=== PATIENT | female | born 1955 | race Caucasian/White ===

== ENCOUNTER 2023-07-24 09:01 | Outpatient (OUT) | payer OTHER, SELFPAY ==
[2023-07-24 09:31] LABS: Eosinophils Absolute Auto 0.1 10^3/uL (0.0-0.7); Eosinophils Percent Auto 2.5 % (0.9-7.0); Hematocrit 40.8 % (36.0-48.0); Hemoglobin 13.2 g/dL (12.0-16.0); Immature Granulocytes Abs Auto 0.01 10^3/uL (0.00-0.03); Immature Granulocytes Pct Auto 0.2 % (0.0-0.5); Lymphocytes Absolute Auto 1.6 10^3/uL (1.2-3.8); Lymphocytes Percent Auto 39.3 % (20.5-60.0); Mean Corpuscular HGB Conc 32.4 g/dL (29.9-35.2); Mean Corpuscular Hemoglobin 31.9 pg (26.7-34.0); Mean Corpuscular Volume 98.6 fL (81.0-99.0); Mean Platelet Volume 8.8 fL (9.5-13.5); Monocytes Absolute Auto 0.5 10^3/uL (0.3-0.8); Monocytes Percent Auto 11.4 % (1.7-12.0); Neutrophils Absolute Auto 1.9 10^3/uL (1.4-6.5); Neutrophils Percent Auto 45.6 % (43.0-75.0); Platelet Count 237 10^3/uL (150-450); Red Blood Count 4.14 10^6/uL (4.20-5.40); Red Cell Distribution Width 12.5 % (11.0-15.0); White Blood Count 4.1 10^3/uL (4.0-11.0)
[2023-07-24 09:35] LABS: Bilirubin Urine NEGATIVE (NEGATIVE); Blood Urine NEGATIVE (NEGATIVE); Clarity Urine CLEAR (CLEAR); Color Urine LT. YELLOW (YELLOW); Glucose Urine UA NEGATIVE (NEGATIVE); Ketones Urine NEGATIVE (NEGATIVE); Leukocyte Esterase Urine SMALL (NEGATIVE); Nitrite Urine NEGATIVE (NEGATIVE); Protein Urine NEGATIVE (NEG/TRACE); Specific Gravity Urine <=1.005 (1.005-1.025); Urobilinogen Urine 0.2 EU/dL (0.2-1.0); pH Urine 6.5 (5.0-9.0)
[2023-07-24 09:40] LABS: Erythrocyte Sedimentation Rate 11 mm/hr (<=30)
[2023-07-24 09:55] LABS: Bacteria Urine SMALL #/HPF (NONE SEEN); Mucus Urine SMALL (NONE SEEN); RBC Urine 0-2 #/HPF (0-2); Squamous Epithelial Cell Urine RARE #/LPF (NONE/RARE)
[2023-07-24 09:56] LABS: Cast Seen? NONE SEEN #/LPF (NONE SEEN); Crystals Seen? None Seen #/HPF (None Seen); Fatty Casts Urine RARE; Urine Culture Indicated YES
[2023-07-24 10:03] LABS: Alanine Aminotransferase 33 U/L (14-59); Albumin Level 3.7 g/dL (3.4-5.0); Alkaline Phosphatase 100 U/L (46-116); Anion Gap 12.4; Aspartate Amino Transferase 22 U/L (15-37); Bilirubin Total 0.3 mg/dL (0.2-1.0); Calcium 8.9 mg/dL (8.5-10.1); Carbon Dioxide 29.1 mmol/L (21.0-32.0); Chloride 105 mmol/L (98-107); Estimated GFR (African America >60 (>=60); Estimated GFR (Non-African Ame 59 (>=60); Globulin 3.6 g/dL; Glucose 108 mg/dL (74-106); Potassium 4.5 mmol/L (3.5-5.1); Sodium 142 mmol/L (136-145); Total Protein 7.3 g/dL (6.4-8.2)
[2023-07-24 10:06] LABS: C Reactive Protein <0.2 mg/dL (<=1.0)
[2023-07-25 08:13] LABS: Complement C3, Serum 120 mg/dL (82-167); Complement C4, Serum 25 mg/dL (12-38)
[2023-07-25 14:09] LABS: Complement, Total (CH50) >60 U/mL (>41)
== END 2023-07-24 09:02 | disposition home or self-care (01) ==
PROVIDERS: PCP Family Medicine; Visit Provider Internal Medicine Rheumatology
DX: M15.0 Primary generalized (osteo)arthritis (principal); M36.8 Systemic disorders of connective tissue in other diseases classified elsewhere; Z79.899 Other long term (current) drug therapy
CPT/HCPCS: 36415; 80053; 81001; 85025; 85652; 86140; 86160; 86162; 87086

== ENCOUNTER 2024-05-16 12:23 | Outpatient (OUT) | payer OTHER, SELFPAY | END 2024-05-16 12:24 | disposition home or self-care (01) | LOC: PST 12:23 | PROVIDERS: PCP Family Medicine; Visit Provider Urology | DX: Z01.818 Encounter for other preprocedural examination (principal); N39.490 Overflow incontinence; R33.9 Retention of urine, unspecified ==

== ENCOUNTER 2024-05-19 07:33 | Day surgery (SDC) | payer OTHER, SELFPAY ==
[2024-05-19] MEDS: LIDOCAINE 2% JELLY 10 ML UR (08:10)
[2024-05-19 08:24] VITALS: BP 181/84; PULSE 93; O2SAT 98
[2024-05-19 08:27] VITALS: BP 163/80; PULSE 81; O2SAT 100
--- NOTE | 2024-05-19 08:31 | PM.URSON ---
Urology Surgery Operative Note Operative Note Procedure Date: 05/19/24 Time Out Performed: yes Pre-op Diagnosis: Vaginal lesions, overflow incontinence Post-op Diagnosis: same as pre-op Procedures performed: 1. Cystoscopy. 2. Pelvic exam Anesthesia: local Primary Surgeon: Wiliam Solis Estimated blood loss (mL): 0 Findings: Moth-eaten erosive lesions on the outer surface of her vagina. No stress incontinence. No bladder lesions Specimens: None Indications for Procedures: This lady has had an abdominal sacrocolpopexy with mesh, a Bundy urethroplasty and a rectocele repair by the [facility] back in 2010. She has been doing well until recently she started to have some leaking of urine and some raw areas on her outer vaginal surface which are causing rather significant burning for her. She has applied several types of creams antifungal and anti-inflammatory all of which minimally helped if any and seem to further exacerbate the situation. She has gained benefit with her leaking while doing double void maneuvers. She now presents for cystoscopy and pelvic exam. Detailed description of Procedure: The patient was kept on the [facility] bed and brought into the endoscopy suite. She was in the supine position. Her legs were frog-legged. Timeout was done by all parties in the room. We all agreed upon the patient's identification and the planned procedures for this patient. Genitalia were sterilely prepped and draped in the usual fashion. 2% lidocaine jelly was passed per urethra. At this time pelvic exam was then done. On her external surface of her vagina she has some moth-eaten lesions which are indurated and open. There is no evidence of blistering. There is no purulence or necrosis in the area. They are quite tender during exam. Internally, she has a grade 1 cystocele. She has mild urethral prolapse. She has no stress incontinence. She has no atrophic vaginitis. At this time I then passed a flexible cystoscope per urethra and into the bladder. Careful panendoscopy in the bladder showed no evidence of any lesions, tumors, stones or mesh erosion. The scope was retroverted upon itself and no new findings were noted. The scope was then removed. With strong Valsalva maneuvers she had no stress incontinence. Grade 1 cystocele was noted. She will be discharged to home now. I am strongly recommending that she see Dr. Garrido and get a biopsy of these lesions
== END 2024-05-19 08:40 | disposition home or self-care (01) ==
PROVIDERS: PCP Family Medicine; Visit Provider Urology
PROC: (CPT 52000; principal; 2024-05-19 08:00)
DX: N39.490 Overflow incontinence (principal); N89.8 Other specified noninflammatory disorders of vagina; N81.10 Cystocele, unspecified; Z90.710 Acquired absence of both cervix and uterus; Z98.1 Arthrodesis status; R33.9 Retention of urine, unspecified; R30.0 Dysuria
CPT/HCPCS: 52000

== ENCOUNTER 2024-07-01 12:11 | Outpatient (REF) | payer OTHER, SELFPAY ==
--- OUTSIDE RECORDS SUMMARY | 2024-07-14 15:23 | XMS_ITS | CCD ---
Author Organization [facility] Care Team Providers Care Zipper Setter Name Role Phone Ian Diaz Unavailable Cristopher Arevalo Benjamin Edward Unavailable Alvarez Chang, Cristopher Martinez Unavailable Unavailable Unavailable CRISTOPHER CHANG Primary Care Physician ALEXANDRE, DR ROMERO Attending Unavailable TIMMIS, DR ROMERO Consulting Unavailable BUSTOS, DR SAMANTHA Martinez Primary Care Unavailable TIMMIS, DR ROMERO Admitting Unavailable MICHAEL, DR YOST Referring Unavailable DERRELL, DR RAHUL Espinoza Consulting Unavailable HULL, DR VILLARREAL Consulting Unavailable DELLA, DR VILLARREAL Admitting Unavailable BUSTOS, DR SAMANTHA Martinez Primary Care Unavailable HULL, DR VILLARREAL Attending Unavailable Samantha Bustos Unavailable RALPH AYERS Referring Unavailable Wiliam WALLACE Attending Unavailable Wiliam WALLACE Attending Unavailable DO Cony Garrido Attending Provider RALPH AYERS Attending Unavailable RALPH AYERS Attending Unavailable RALPH AYERS Attending Unavailable RALPH AYERS Attending Unavailable CONY GARRIDO Attending Unavailable Cony Garrido Attending Unavailable Cony Garrido Admitting Unavailable Unavailable Unavailable Unavailable Allergies Allergy Classification Reported Allergen(s) Allergy Type Date of Onset Reaction(s) Facility (1 source) No Known Medication Allergies; Translations: [No Known Medication Allergies] Propensity to adverse reactions (disorder) [facility] Repository Medications Current Medications Medication Drug Class(es) Dates Sig (Normalized) Sig (Original) acetaminophen 325 mg / HYDROcodone bitartrate 5 mg oral tablet (2 sources) Opioid Agonist Start: 08-20-2017 take 1 tablet by mouth every four to six hours Hydrocodone-Aceta minophen ([place]) 5-325 mg tablet Active 1 - 2 TAB PO EVERY 4-6 HOURS 40 August 20, 2017 10:07am ARIPiprazole 2 mg oral tablet (4 sources) Atypical Antipsychotic Start: 01-11-2022 take 2 mg by mouth once daily aripiprazole 2 mg, Oral, Daily, Refills(s) 0, Depression Start Date: 01/11/22 Status: Ordered clobetasol propionate 0.0005 mg/mg topical ointment (1 source) Corticosteroid Start: 05-05-2024 clobetasol propionate 0.05% top oint 1 wu, Topical, BID, 45 gm, Refill(s) 1, Apply a thin film to affected area, [facility], 158, cm, 05/05/24 10:21:00 EDT, Height/Length Dosing, 70, kg, 05/05/24 10:21:00 EDT, Weight Dosing Start Date: 05/05/24 Status: Ordered Cymbalta 60 mg Cap-DR (1 source) Start: 05-05-2024 Cymbalta 60 mg Cap-DR Oral, Refills(s) 0 Start Date: 05/05/24 Status: Ordered diclofenac sodium 0.01 mg/mg topical gel (1 source) Nonsteroidal Anti-inflammatory Drug Start: 09-23-2019 DULoxetine 60 mg oral capsule (9 sources) Serotonin and Norepinephrine Reuptake Inhibitor Start: 02-17-2022 take 60 mg by mouth once daily duloxetine 60 mg, Oral, Daily, Refills(s) 0, Depression Start Date: 02/17/22 Status: Ordered Start: 08-20-2017 take 1 capsule by [facility] once daily Duloxetine Active 1 CAP Oral Daily August 20, 2017 7:28am Cymbalta 30 MG O ral Capsule Delayed Release Particles Quantity: 0 Refills: 0 Ordered: 12-Feb-2014 DO Active Cymbalta 60 MG O ral Capsule Delayed Release Particles Quantity: 0 Refills: 0 Ordered: 12-Feb-2014 DO Active etodolac 500 mg oral tablet (4 sources) Nonsteroidal Anti-inflammatory Drug Start: 01-11-2022 take 500 mg by mouth twice daily etodolac 500 mg, Oral, BID, Refills(s) 0, Inflammation Start Date: 01/11/22 Status: Ordered famotidine 20 mg oral tablet (3 sources) Histamine-2 Receptor Antagonist Start: 01-11-2022 take 20 mg by mouth once daily famotidine 20 mg, Oral, Daily, Prescribed by another provider., Refills(s) 0, Control of stomach acid Start Date: 01/11/22 Status: Ordered hydroxychloroquine sulfate 200 mg oral tablet (7 sources) Antimalarial, Antirheumatic Agent Start: 02-17-2022 take 200 mg by mouth twice daily hydroxychloroquine 200 mg, Oral, BID, Refills(s) 0, Arthritis Start Date: 02/17/22 Status: Ordered Start: 08-20-2017 take 200 mg by mouth once daily Hydroxychloroquine Active 200 MG Oral Daily August 20, 2017 7:31am Plaquenil 200 MG Oral Tablet Quantity: 0 Refills: 0 Ordered: 12-Feb-2014 DO Active lidocaine 0.05 mg/mg medicated patch (1 source) Antiarrhythmic, Amide Local Anesthetic Start: 09-23-2019 naproxen 25 mg/ml oral suspension (3 sources) Nonsteroidal Anti-inflammatory Drug take 10 mL by mouth twice daily Naprosyn 500 MG Oral Tablet Quantity: 0 Refills: 0 Ordered: 12-Feb-2014 DO Active omeprazole 40 mg oral tablet (2 sources) Proton Pump Inhibitor Start: 01-11-2022 take 40 mg by mouth once daily omeprazole 40 mg, Oral, Daily, Refills(s) 0, Control of stomach acid Start Date: 01/11/22 Status: Ordered triamcinolone acetonide 5 mg/ml topical cream (3 sources) Corticosteroid Start: 12-26-2022 Triamcinolone Acetonide 0.5 % 1 application Externally Twice a day for 30 day(s) Dec, Active Start: 11-28-2019 Kenalog -40 mg Nov, 40 mg Completed/Discontinued Medications Medication Drug Class(es) Dates Sig (Normalized) Sig (Original) busPIRone hydrochloride 15 mg oral tablet (1 source) take 1 tablet by mouth three times daily busPIRone HCl 15 MG TAKE 1 TABLET BY MOUTH 3 TIMES A DAY Oral for 30 Not-Taking ciprofloxacin 500 mg oral tablet (1 source) Quinolone Antimicrobial Start: 05-05-2024 Cipro 500 mg Tab 500 mg = 1 tab(s), Oral, As Directed, Patient to take 1 tab the day before procedure and the 2nd tab the day of procedure once completed, # 2 tab(s), Refills(s) 0, Pharmacy: [facility], 158, cm, 05/05/24 10:21:00 EDT, Height/Length Dosing, 70, kg, 05/05/24 10:21:00 EDT, Weight Dosing Start Date: 05/05/24 Status: Ordered cyclobenzaprine (8 sources) Muscle Relaxant Start: 02-17-2022 take 3 tablets by mouth once daily at bedtime cyclobenzaprine 10 mg, Oral, Once a day (at bedtime), takes 3 tabs, Refills(s) 0, Spasm Start Date: 02/17/22 Status: Ordered Start: 08-20-2017 take 3 tablets by mo [facility] at bedtime Cyclobenzaprine Active 3 TAB Oral Bedtime August 20, 2017 7:28am Flexeril Active Flexeril TABS Qu antity: 0 Refills: 0 Ordered: 12-Feb-2014 DO Active doxycycline hyclate 100 mg oral tablet (4 sources) Tetracycline-class Drug Start: 08-20-2017 Doxycy heredia Hyclate 100 MG Oral Tablet Quantity: 14 Refills: 0 Ordered: 20-Aug-2017 DO Start : 20-Aug-2017 Active Start: 08-20-2017 take 100 mg by mouth twice daily Doxycycline Hyclate Active 100 MG Oral Twice daily 14 August 20, 2017 10:07am meloxicam 15 mg oral tablet (2 sources) Nonsteroidal Anti-inflammatory Drug Start: 05-04-2021 take 1 tablet by mouth once daily as needed Meloxicam 15 MG Oral Tablet TAKE 1 TABLET DAILY NEEDED. Quantity: 30 Refills: 2 Ordered: 04-May-2021 Ian Diaz MD Start : 04-May-2021 Active methylPREDNISolone 4 MG Oral Tablet Therapy Pack (4 sources) Start: 05-04-2021 methylPREDNISolone 4 MG Oral Tablet Therapy Pack Take as directed 21 therapy pack Quantity: 1 Refills: 0 Ordered: 04-May-2021 Ian Diaz MD Start : 04-May-2021 Active Start: 07-19-2017 methylPREDNISo lone 4 MG Oral Tablet Therapy Pack Quantity: 21 Refills: 0 Ordered: 19-Jul-2017 DO Start : 19-Jul-2017 Active tiZANidine 4 mg oral tablet (3 sources) Central alpha-2 Adrenergic Agonist Start: 10-31-2017 take 1 tablet by mouth every six hours as needed for muscle spasms tiZANidine HCl - 4 MG Oral Tablet TAKE 1 TABLET EVERY 6 HOURS NEEDED FOR SPASM. Quantity: 92 Refills: 3 Ordered: 11-Jul-2022 Ian Diaz MD Start : 04-May-2021 Active Problems Active Problems Problem Classification Problem Date Documented Da te Episodic/Chronic Anal and rectal conditions (4 sources) Rectal polyp; Translations: [Rectal polyp] Onset: 03-14-2022 Episodic Anxiety disorders (2 sources) Mixed anxiety and depressive disorder; Translations: [Anxiety state, unspecified] Chronic Cardiac dysrhythmias (1 source) Palpitations; Translations: [Palpitations] Episodic Esophageal disorders (5 sources) Obstruction of esophagus; Translations: [Esophageal obstruction] Onset: 03-14-2022 Chronic Genitourinary symptoms and ill-defined conditions (2 sources) Overflow incontinence; Translations: [Overflow incontinence of urine] Onset: 05-05-2024 Chronic Genitourinary symptoms and ill-defined conditions (4 sources) Dysuria; Translations: [Dysuria] Onset: 05-05-2024 Episodic Hemorrhoids (4 sources) Hemorrhoids; Translations: [Unspecified hemorrhoids] Onset: 03-14-2022 Episodic Inflammatory diseases of female pelvic organs (1 source) Acute vaginitis Episodic Nonspecific chest pain (1 source) Chest pain at rest; Translations: [Chest pain, unspecified] Episodic Osteoarthritis (5 sources) Primary generalized (osteo)arthritis; Translations: [Localized, primary osteoarthritis of the hand] Onset: 04-11-2022 Chronic Other aftercare (1 source) Other mcfp (current) drug therapy; Translations: [OTH INTERMEDIATE CURRENT DRUG THERAPY] Onset: 04-13-2022 Episodic Other congenital anomalies (2 sources) Herniated urinary bladder; Translations: [Bladder prolapse] Chronic Other female genital disorders (1 source) Noninflammatory disorder of the vagina; Translations: [Other specified noninflammatory disorders of vagina] Onset: 05-05-2024 Episodic Other gastrointestinal disorders (4 sources) Dysphagia; Translations: [Dysphagia, unspecified] Onset: 03-14-2022 Episodic Other inflammatory condition of skin (1 source) Pruritus of vagina 05-05-2024 Episodic Other skin disorders (1 source) Mass of wrist; Translations: [Localized swelling, mass and lump, right upper limb] Episodic Other upper respiratory disease (4 sources) Chronic laryngitis; Translations: [CHRONIC LARYNGITIS] Onset: 11-18-2021 Chronic Other upper respiratory disease (1 source) Allergic rhinitis; Translations: [Vasomotor rhinitis] Chronic Residual codes; unclassified (1 source) Postprocedural state finding; Translations: [Other specified postprocedural states] Episodic Spondylosis; intervertebral disc disorders; other back problems (9 sources) Low back pain; Translations: [Neck pain] Onset: 10-25-2017 Episodic Systemic lupus erythematosus and connective tissue disorders (1 source) 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; Translations: [SYS D/O CONN TISS OTH DZ CLASS ELSW] Onset: 04-13-2022 Chronic Unclassified (2 sources) Low back pain / M54.5(ICD-10) Onset: 10-25-2017 Unclassified (1 source) Spondyls w/o myelopathy or radiculopathy, lumbosacr region / M47.817(ICD-10) Onset: 10-25-2017 Unclassified (1 source) Spondylolisthesis, lumbosacral region / M43.17(ICD-10) Onset: 10-25-2017 Past or Other Problems Problem Classification Problem Date Documented Da te Episodic/Chronic Esophageal disorders (1 source) Esophageal disorders; Translations: [Gastroesophageal reflux disease with esophagitis without hemorrhage] Unclassified (3 sources) Autoimmune (qualifier value) 02-18-2016 Results Test Name Value Interpretation Reference Range Facility Pathology Request for Lab Co rpon 07-01-2024 Pathology Request for Lab Todd Normal [facility] Comment on above: Order Comment: PATHOLOGY FORDER OPERATOR SPECIMEN Result Comment: See report. Scanned copy available in EMR. PERFORMED BY: [place] [address] PATHOLOGIST FINISHER POLISHER CHELSEA CALL M.D. Performed By: #### P ATH TO [facility] #### [address] Auth for Release of Medical Recordson 05-06-2024 Auth for Release of Medical Records [id number]#[id number] Normal [facility] Consent for Procedure/Surger yon 05-06-2024 Consent for Procedure/Surger y [id number]#[id number] [facility] Formson 05-06-2024 Forms [id number]#[id number] [facility] Physician Referralon 024 Physician Referral [id number]#[id number] [facility] Ambulatory Visit Summaryon 0 05-05-2024 Ambulatory Visit Summary NANCY GAINES V :1955 Visit Date:05/05/2024 Ambulatory Visit Instructions Your Diagnosis Overflow incontinence Incomplete bladder emptying Vaginal itching Dysuria Your Care Team Attending Physician - Wiliam WALLACE MD Primary Care Physician - CRISTOPHER CHANG DO Referring Physician - RALPH AYERS PA-C This Is Your Medications List Contact prescribing physician if questions or concerns aripiprazole cyclobenzaprine duloxetine (Cymbalta 60 mg Cap-DR) etodolac Procedures Performed Colonoscopy (02/20/2022), Esophagogastroduodenoscopy (02/20/2022), Bunionectomy, Hysterectomy, Sling procedure of bladder neck, Spinal fusion. Discharge Vitals Temperature (Temporal Artery) 37 ?C Heart Rate (Peripheral) 87 Respiratory Rate 16 Blood Pressure 138/85 Height 158 cm Height 62 in Weight 70 kg Weight 154 lb BMI 28.04 What to do next You Need to Schedule the Following Appointments Follow Up with Wiliam WALLACE MD, URWilliam When: Where: [facility] [address] , [place] [address]- Medications What How Much When Instructions Unchanged aripiprazole 2 Milligram By Mouth Every day Contact prescribing physician if questions or concerns Unchanged cyclobenzaprine 10 Milligram By Mouth Once a day (at bedtime) takes 3 tabs Contact prescribing physician if questions or concerns Unchanged duloxetine (Cymbalta 60 mg Cap-DR) By Mouth Contact prescribing physician if questions or concerns Unchanged etodolac 500 Milligram By Mouth 2 times a day Contact prescribing physician if questions or concerns Allergies No Known Medication Allergies Problems Ongoing - Any problem that you are currently receiving treatment for. Dysphagia Dysuria Hemorrhoids Incomplete bladder emptying Overflow incontinence Rectal polyp Schatzki's ring Vaginal itching Historical - Any problem that you are no longer receiving treatment for. Autoimmune Patient Survey You may receive a survey via text or e-mail asking about your office visit. Please share your experience with us by completing your survey. We appreciate your feedback and thank you for choosing us for your care. Normal [facility] C3 and C4 COMPLEMENTon 04-12 Complement C3, Serum 144 mg/dL Normal 82-167 [facility] Comment on above: Performed By: #### CSUITE #### [facility] [address] [address] [address] Will Stroud Complement C4, Serum 31 mg/dL Normal 12-38 [facility] Comment on above: Performed By: #### CSUITE #### [facility] [address] [address] [address] Will Stroud COMPLEMENT TOTAL (CH50)on Complement, Total (CH50) >60 Normal >41 [facility] Comment on above: Result Comment: Age Male Female 1 - 30 days Not Estab. Not Estab. 31 days - 6 months >32 >20 7 months - 17 years >39 >39 >17 years >41 >41 NOTE: The adult ( >17 years ) reference interval range is used to flag abnormals on this report. If the patient is 17 years old or younger, use the table above to determine out of range values. Performed By: #### C H50T #### [facility] [address] [address] [address] Will Stroud CBC AUTO DIFFon 04-11-2022 BASO # 0.0 103/ul Normal 0.0-0.1 [facility] Comment on above: Performed By: #### CBC #### [facility] [address] [address] [address] Will Stroud Basophils/100 WBC (Bld) 0.9 % Normal 0.2-2.0 [facility] Comment on above: Performed By: #### CBC #### [facility] [address] [place] [address] Dr. Will Stroud EO # 0.1 103/ul Normal 0.0-0.7 [facility] Comment on above: Performed By: #### CBC #### [facility] [address] [place] [address] Dr. Will Stroud Eosinophils/100 WBC (Bld) 1.7 % Normal 0.9-7.0 [facility] Comment on above: Performed By: #### CBC #### [facility] [address] [place] [address] Dr. Will Stroud Erythrocyte distribution width (RBC) [Ratio] 12.4 % Normal 11.0-15.0 [facility] Comment on above: Performed By: #### CBC #### [facility] [address] [place] [address] Dr. Will Stroud Hematocrit (Bld) [Volume fraction] 41.3 % Normal 36.0-48.0 [facility] Comment on above: Performed By: #### CBC #### [facility] [address] [place] [address] Dr. Will Stroud Hemoglobin (Bld) [Mass/Vol] 13.5 g/dL Normal 12.0-16.0 [facility] Comment on above: Performed By: #### CBC #### [facility] [address] [place] [address] Dr. Will Stroud IG # 0.00 10e3/ul Normal 0.00-0.03 [facility] Comment on above: Performed By: #### CBC #### [facility] [address] [place] [address] Dr. Will Stroud IG % 0.0 % Normal 0.0-0.5 [facility] Comment on above: Performed By: #### CBC #### [facility] [address] [place] [address] Dr. Will Stroud LYMPH # 1.3 103/ul Normal 1.2-3.8 [facility] Comment on above: Performed By: #### CBC #### [facility] [address] [place] [address] Dr. Will Stroud Lymphocytes/100 WBC (Bld) 29.6 % Normal 20.5-60.0 [facility] Comment on above: Performed By: #### CBC #### [facility] [address] [place] [address] Dr. Will Stroud MANUAL DIFF REQ NO Normal [facility] Comment on above: Performed By: #### CBC #### [facility] [address] [place] [address] Dr. Will Stroud MCH (RBC) [Entitic mass] 31.1 pg Normal 26.7-34.0 [facility] Comment on above: Performed By: #### CBC #### [facility] [address] [place] [address] Dr. Will Stroud MCHC (RBC) [Mass/Vol] 32.7 g/dL Normal 29.9-35.2 [facility] Comment on above: Performed By: #### CBC #### [facility] [address] [place] [address] Dr. Will Stroud MCV (RBC) [Entitic vol] 95.2 fL Normal 81.0-99.0 [facility] Comment on above: Performed By: #### CBC #### [facility] [address] [place] [address] Dr. Will Stroud MONO # 0.5 103/ul Normal 0.3-0.8 [facility] Comment on above: Performed By: #### CBC #### [facility] [address] [place] [address] Dr. Will Stroud Monocytes/100 WBC (Bld) 11.4 % Normal 1.7-12.0 [facility] Comment on above: Performed By: #### CBC #### [facility] [address] [place] [address] Dr. Will Stroud NEUT # 2.4 103/ul Normal 1.4-6.5 [facility] Comment on above: Performed By: #### CBC #### [facility] [address] [place] [address] Dr. Will Stroud Neutrophils/100 WBC (Bld) 56.4 % Normal 43.0-75.0 [facility] Comment on above: Performed By: #### CBC #### [facility] [address] [place] [address] Dr. Will Stroud Platelet mean volume (Bld) [Entitic vol] 8.6 fL Critically low 9.5-13.5 [facility] Comment on above: Performed By: #### CBC #### [facility] [address] [place] [address] Dr. Will Stroud PLT 237 103/ul Normal 150-450 [facility] Comment on above: Performed By: #### CBC #### [facility] [address] [place] [address] Dr. Will Stroud RBC 4.34 106/ul Normal 4.20-5.40 [facility] Comment on above: Performed By: #### CBC #### [facility] [address] [place] [address] Dr. Will Stroud WBC 4.2 103/ul Normal 4.0-11.0 [facility] Comment on above: Performed By: #### CBC #### [facility] [address] [place] [address] Dr. Will Stroud PROF 14(COMP METB)on 022 Albumin [Mass/Vol] 3.8 g/dL Normal 3.4-5.0 [facility] Comment on above: Performed By: #### CMP #### [facility] [address] [place] [address] Dr. Will Stroud Albumin/Globulin [Mass ratio] 1.0 {ratio} Normal [facility] Comment on above: Performed By: #### CMP #### [facility] [address] [place] [address] Dr. Will Stroud ALP [Catalytic activity/Vol] 110 U/L Normal 46-116 [facility] Comment on above: Performed By: #### CMP #### [facility] [address] [place] [address] Dr. Will Stroud ALT [Catalytic activity/Vol] 33 U/L Normal 14-59 [facility] Comment on above: Performed By: #### CMP #### [facility] [address] [address] [address] Will Stroud Anion gap [Moles/Vol] 11.8 mmol/L Normal [facility] Comment on above: Performed By: #### CMP #### [facility] [address] [address] [address] Will Stroud AST [Catalytic activity/Vol] 21 U/L Normal 15-37 [facility] Comment on above: Performed By: #### CMP #### [facility] [address] [address] [address] Will Stroud Bilirubin [Mass/Vol] 0.4 mg/dL Normal 0.2-1.0 [facility] Comment on above: Performed By: #### CMP #### [facility] [address] [place] [address] Dr. Will Stroud Calcium [Mass/Vol] 9.0 mg/dL Normal 8.5-10.1 [facility] Comment on above: Performed By: #### CMP #### [facility] [address] [place] [address] Dr. Will Stroud Chloride [Moles/Vol] 102 mmol/L Normal 98-107 [facility] Comment on above: Performed By: #### CMP #### [facility] [address] [address] [address] Will Stroud CO2 [Moles/Vol] 29.3 mmol/L Normal 21.0-32.0 [facility] Comment on above: Performed By: #### CMP #### [facility] [address] [address] [address] Will Stroud Creatinine [Mass/Vol] 0.86 mg/dL Normal 0.55-1.02 [facility] Comment on above: Performed By: #### CMP #### [facility] [address] [address] [address] Will Stroud EGFR-AF LATVIAN >60 Normal >=60 [facility] Comment on above: Performed By: #### CMP #### [facility] [address] [address] [address] Will Stroud EGFR-NON AF LATVIAN >60 Normal >=60 [facility] Comment on above: Performed By: #### CMP #### [facility] [address] [address] [address] Will Stroud Globulin (S) [Mass/Vol] 3.8 g/dL Normal [facility] Comment on above: Performed By: #### CMP #### [facility] [address] [address] [address] Will Stroud Glucose [Mass/Vol] 106 mg/dL Normal 74-106 [facility] Comment on above: Performed By: #### CMP #### [facility] [address] [address] [address] Will Stroud Potassium [Moles/Vol] 4.1 mmol/L Normal 3.5-5.1 [facility] Comment on above: Performed By: #### CMP #### [facility] [address] [place] [address] Dr. Will Stroud Protein [Mass/Vol] 7.6 g/dL Normal 6.4-8.2 [facility] Comment on above: Performed By: #### CMP #### [facility] [address] [address] [address] Will Stroud Sodium [Moles/Vol] 139 mmol/L Normal 136-145 [facility] Comment on above: Performed By: #### CMP #### [facility] [address] [place] [address] Dr. Will Stroud Urea nitrogen [Mass/Vol] 15.0 mg/dL Normal 7.0-18.0 [facility] Comment on above: Performed By: #### CMP #### [facility] [address] [place] [address] Dr. Will Stroud Urea nitrogen/Creatin ine [Mass ratio] 17.4 mg/mg Normal [facility] Comment on above: Performed By: #### CMP #### [facility] [address] [place] [address] Dr. Will Stroud [facility] 6 mm/hr Normal <=30 [facility] Comment on above: Performed By: #### SEDR #### [facility] [address] [place], [place] [address] Dr. Will Stroud UA RANDOM W/MICROSCOPICon BACTERIA NONE SEEN Normal NONE SEEN [facility] Comment on above: Performed By: #### UAMIC #### [facility] [address] [place] [address] Dr. Will Stroud Bilirubin Ql (U) Negative Normal NEGATIVE [facility] Comment on above: Performed By: #### UAMIC #### [facility] [address] [place] [address] Dr. Will Stroud CAST NONE SEEN Normal NONE SEEN [facility] Comment on above: Performed By: #### UAMIC #### [facility] [address] [place] [address] Dr. Will Stroud Clarity (U) CLEAR Normal CLEAR [facility] Comment on above: Performed By: #### UAMIC #### [facility] [address] [place] [address] Dr. Will Stroud Color (U) LT. YELLOW Normal YELLOW [facility] Comment on above: Performed By: #### UAMIC #### [facility] [address] [place] [address] Dr. Will Stroud Crystals LM Nom (Urine sed) NONE SEEN Normal NONE SEEN [facility] Comment on above: Performed By: #### UAMIC #### [facility] [address] [place] [address] Dr. Will Stroud Epithelial cells LM Ql (Urine sed) RARE Normal NONE SEEN /RARE [facility] Comment on above: Performed By: #### UAMIC #### [facility] [address] [place] [address] Dr. Will Stroud Glucose Ql (U) Negative Normal NEGATIVE [facility] Comment on above: Performed By: #### UAMIC #### [facility] [address] [place] [address] Dr. Will Stroud Hemoglobin Ql (U) Negative Normal NEGATIVE [facility] Comment on above: Performed By: #### UAMIC #### [facility] [address] [place] [address] Dr. Will Stroud Ketones Ql (U) Negative Normal NEGATIVE [facility] Comment on above: Performed By: #### UAMIC #### [facility] [address] [place] [address] Dr. Will Stroud LEUKOCYTES SMALL Abnormal NEGATIVE [facility] Comment on above: Performed By: #### UAMIC #### [facility] [address] [place] [address] Dr. Will Stroud MUCOUS NONE SEEN Normal NONE SEEN [facility] Comment on above: Performed By: #### UAMIC #### [facility] [address] [place] [address] Dr. Will Stroud Nitrite Ql (U) Negative Normal NEGATIVE [facility] Comment on above: Performed By: #### UAMIC #### [facility] [address] [place] [address] Dr. Will Stroud pH (U) 6.5 [pH] Normal 5-9 [facility] Comment on above: Performed By: #### UAMIC #### [facility] [address] [place] [address] Dr. Will Stroud RBC NONE SEEN Abnormal 0-2 [facility] Comment on above: Performed By: #### UAMIC #### [facility] [address] [place] [address] Dr. Will Stroud SPEC GRAVITY <=1.005 Abnormal 1.005-<=1.02 5 [facility] Comment on above: Performed By: #### UAMIC #### [facility] [address] [place] [address] Dr. Will Stroud UA PROTEIN Negative Normal NEGATIVE/ TRACE [facility] Comment on above: Performed By: #### UAMIC #### [facility] [address] [place] [address] Dr. Will Stroud Urobilinogen Qn (U) 0.2 {Fausto'U}/dL Normal 0.2 - 1.0 [facility] Comment on above: Performed By: #### UAMIC #### [facility] [address] [place] [address] Dr. Will Stroud WBC 0-2 Abnormal NONE SEEN [facility] Comment on above: Performed By: #### UAMIC #### [facility] [address] [place] [address] Dr. Will Stroud XR ESOPHAGUSon 11-18-2021 XR ESOPHAGUS EXAMINATION: XR ESOP HAGUS HISTORY: Chronic laryngitis COMPARISON: No relevant comparison available. TECHNIQUE: A swallowing evaluation was performed with fluoroscopy in the usual manner. Standard level fluoroscopic mode of operation utilized. 1.7 minutes of fluoroscopy FINDINGS: ORAL PHASE: Normal deglutition. PHARYNGEAL PHASE: Normal swallowing. ASPIRATION: None. STRUCTURE: Normal. No visible obstruction, stricture, or dilatation. OTHER: Tertiary nonpropulsive contractions of the esophagus. Delayed passage of the barium tablet at the gastroesophageal junction IMPRESSION: Delayed passage of barium tablet suggesting stenosis at the gastroesophageal junction Tertiary nonpropulsive esophageal contractions No gastroesophageal reflux Electronically authenticated by: RAHUL DOVE Date: 2021-11-18 12:29 Normal [facility] BN SPINE, LUMBOSACRAL; MIN 4 VIEWSon 05-04-2021 BN SPINE, LUMBOSACRAL; MIN 4 VIEWS Patient Name: NANCY GAINES STUDY: SPINE, LUMBOSACRAL MIN 4 VIEWS INDICATION: AP/LAT FLEX & EXT. COMPARISON: October 25, 2017 ACCESSION NUMBER(S): [id number] ORDERING CLINICIAN: IAN DIAZ FINDINGS: L4-5 laminectomy and posterior fusion with pedicle screws at L5-S1. Hardware satisfactory. Alignment unchanged with anterolisthesis L5 on S1. No pathologic motion seen. IMPRESSION: Status post lower lumbar laminectomy with L5-S1 posterior fusion, unchanged in appearance without evidence of complication. Electronically signed by: KARIN AGARWAL MD Normal [facility] No Panel Informationon 05-04 Please click on the link to view the study images Normal [facility] Work Phone: Office Visiton 05-04-2021 Follow-up visit Diagnoses/Problems Lumbar radiculopathy (724.4) (M54.16) Orders Low back pain, Lumbar radiculopathy Start: Meloxicam 15 MG Oral Tablet; TAKE 1 TABLET DAILY NEEDED Low back pain, Lumbar radiculopathy, Neck pain Physical Therapy - General Referral Evaluation and Treatment Evaluate AND Treat Status: Hold For - Scheduling,Retrospective Authorization Requested for: [id number] Low back pain, Neck pain Start: methylPREDNISolone 4 MG Oral Tablet Therapy Pack; Take as directed 21 therapy pack Lumbar radiculopathy, Neck pain Start: tiZANidine HCl - 4 MG Oral Tablet; TAKE 1 TABLET EVERY 6 HOURS NEEDED FOR SPASM Patient Discussion/Summary The patient returns today. I last saw her on 10/25/2017. She is status post laminectomy and decompression L4-S1, with instrumented posterior fusion at L5-S1 on 08/28/14. I last saw her on 10/31/2017. She was having some recurrent symptoms, but MRI showed no significant nerve compression or stenosis. She states that she did well after that visit as we prescribed medications and exercises. She states that over the past 6 to 8 weeks she has had recurrent back pain with some symptoms into the right lower extremity. She denies weakness, but states that she does have a bit of numbness in her calves. On exam, she has 5/5 strength, normal sensation, negative nerve tension signs. She walks with a bit of an antalgic gait. Shopping cart sign is positive. Upper motor neuron signs are negative. Vascular exam within normal limits. Homans' sign is negative. She has not had any treatment for her recurrent symptoms over the past 6 to 8 weeks. I am recommending a Medrol Dosepak and I have also prescribed meloxicam to start after her Medrol pack is completed. I am also prescribing Lidoderm patches. She already takes Flexeril. I am also referring for physical therapy lumbar spine. She has not had physical therapy for years since her prior surgery, and I think that restarting an exercise program may be of some benefit. Virtual visit with me in 3 weeks. If she is getting better perhaps we can watch [id number]. If she is not getting better, I will likely need to get an MRI so that we can evaluate further. Provider Impressions The patient returns today. I last saw her on 10/25/2017. She is status post laminectomy and decompression L4-S1, with instrumented posterior fusion at L5-S1 on 08/28/14. I last saw her on 10/31/2017. She was having some recurrent symptoms, but MRI showed no significant nerve compression or stenosis. She states that she did well after that visit as we prescribed medications and exercises. She states that over the past 6 to 8 weeks she has had recurrent back pain with some symptoms into the right lower extremity. She denies weakness, but states that she does have a bit of numbness in her calves. On exam, she has 5/5 strength, normal sensation, negative nerve tension signs. She walks with a bit of an antalgic gait. Shopping cart sign is positive. Upper motor neuron signs are negative. Vascular exam within normal limits. Homans' sign is negative. She has not had any treatment for her recurrent symptoms over the past 6 to 8 weeks. I am recommending a Medrol Dosepak and I have also prescribed meloxicam to start after her Medrol pack is completed. I am also prescribing Lidoderm patches. She already takes Flexeril. I am also referring for physical therapy lumbar spine. She has not had physical therapy for years since her prior surgery, and I think that restarting an exercise program may be of some benefit. Virtual visit with me in 3 weeks. If she is getting better perhaps we can watch [id number]. If she is not getting better, I will likely need to get an MRI so that we can evaluate further. Chief Complaint The patient returns today. I last saw her on 10/25/2017. She is status post laminectomy and decompression L4-S1, with instrumented posterior fusion at L5-S1 on 08/28/14. I last saw her on 10/31/2017. She was having some recurrent symptoms, but MRI showed no significant nerve compression or stenosis. She states that she did well after that visit as we prescribed medications and exercises. She states that over the past 6 to 8 weeks she has had recurrent back pain with some symptoms into the right lower extremity. She denies weakness, but states that she does have a bit of numbness in her calves. On exam, she has 5/5 strength, normal sensation, negative nerve tension signs. She walks with a bit of an antalgic gait. Shopping cart sign is positive. Upper motor neuron signs are negative. Vascular exam within normal limits. Homans' sign is negative. She has not had any treatment for her recurrent symptoms over the past 6 to 8 weeks. I am recommending a Medrol Dosepak and I have also prescribed meloxicam to start after her Medrol pack is completed. I am also prescribing Lidoderm patches. She already takes Flexeril. I am also referring for physical therapy lumbar spine. She has not had physical therapy (more content not included)... Normal [facility] SPINE, LUMBOSACRAL; MIN 4 EWSon 10-25-2017 SPINE, LUMBOSACRAL; MIN 4 VIEWS Name: NANCY GAINES STUDY:Lumbar spine dated 10/25/2017. INDICATION:Pain. COMPARISON:Radiographs dated 12/30/2014. ORDERING CLINICIAN:IAN DIAZ TECHNIQUE:AP, lateral, lateral flexion, and lateral extension radiographs ofthe lumbar spine. FINDINGS:There are 5 lumbar type vertebral bodies. There is grade 1anterolisthesis of L5 on S1. It is similar between flexion,extension, and neutral. There is L4-5 pedicle screws with bridgingrods and laminectomy change. No distinct hardware complication isevident. Sila-qz-wbywodse multilevel degenerative changes seen of thevisualized spine. IMPRESSION:1. Grade 1 anterolisthesis of L 5 on S 1.2. Surgical and degenerative changes discussed above.Electronically signed by: ROSALBA JACOBO MD Normal [facility] Vital Signs Date Time Vital Sign Value Performing Clinician Facility 05-05-2024 10:14-0400 Blood Pressure Location Wiliam WALLACE [facility] 05-05-2024 10:14-0400 Body temperature 98.6 [degF] Wiliam WALLACE [facility] 05-05-2024 10:14-0400 Diastolic blood pressure 85 mm[Hg] Wiliam WALLACE [facility] 05-05-2024 10:14-0400 Heart rate 87 /min Wiliam WALLACE [facility] 05-05-2024 10:14-0400 Respiratory rate 16 /min Wiliam WALLACE [facility] 05-05-2024 10:14-0400 Systolic blood pressure 138 mm[Hg] Wiliam WALLACE [facility] 12-26-2022 12:30-0500 Body height 154.94 cm Samantha Bustos Other [facility] 12-26-2022 12:30-0500 Body mass index (BMI) [Ratio] 30.23 kg/m2 Samantha Bustos Other [facility] 12-26-2022 12:30-0500 Body weight 72.58 kg Samantha Bustos Other [facility] Other 12-26-2022 12:30-0500 Diastolic blood pressure 100 mm[Hg] Samantha Bustos Other [facility] 12-26-2022 12:30-0500 SaO2% (BldA) [Mass fraction] 97 % Samantha Bustos Other [facility] Other 12-26-2022 12:30-0500 Systolic blood pressure 142 mm[Hg] Samantha Bustos Other [facility] Other 03-14-2022 13:01-0400 Blood Pressure Location Deyanira Chan [facility] 03-14-2022 13:01-0400 Body temperature 98.06 [degF] Deyanira Chan [facility] 03-14-2022 13:01-0400 Diastolic blood pressure 76 mm[Hg] Deyanira Chan [facility] 03-14-2022 13:01-0400 Heart rate 87 /min Deyanira Chan [facility] 03-14-2022 13:01-0400 SaO2% (BldA) [Mass fraction] 99 % Deyanira Chan [facility] 03-14-2022 13:01-0400 Systolic blood pressure 136 mm[Hg] Deyanira Chan [facility] Encounters Encounter Date Encounter Type Care Provider Facility Start: 07-01-2024 End: 07-01-2024 ambulatory Cony Hema [facility] Work Phone: Start: 07-01-2024 End: 07-01-2024 Departed Referred DO Cony Hema Work Phone: [facility] Start: 07-01-2024 End: 07-01-2024 ambulatory CONY HEMA Not Available Start: 06-18-2024 End: 06-18-2024 ambulatory RALPH ANDRIA Not Available Start: 06-10-2024 End: 06-10-2024 ambulatory RALPH ANDRIA Not Available Start: 05-19-2024 End: 05-19-2024 ambulatory Wiliam WALLACE Facility:CD:[id number] Start: 05-05-2024 End: 05-05-2024 ambulatory RALPH L ANDRIA Facility:[facility] Start: 05-05-2024 End: 05-05-2024 Patient encounter procedure Wiliam WALLACE [facility] Start: 04-07-2024 End: 04-07-2024 ambulatory RALPH ANDRIA Not Available Start: 03-21-2024 ambulatory RALPH ANDRIA Facility:[facility] Start: 03-18-2024 End: 03-18-2024 ambulatory RALPH ANDRIA Not Available Start: 12-26-2022 End: 12-26-2022 ambulatory Samantha Muna Other [facility] Other Start: 12-26-2022 Office outpatient visit 15 minutes Samantha Bustos [facility] Start: 08-17-2022 End: 08-17-2022 Patient encounter procedure Trudi MCCANN [facility] Start: 07-11-2022 Chart Update Cristopher lawrence Work Phone: [facility] Work Phone: Start: 04-11-2022 End: 04-12-[address] CHERELLE HULL Facility:[facility] Start: 03-14-2022 End: 03-14-2022 Patient encounter procedure Deyanira Chan [facility] Start: 11-18-2021 End: 11-19-[address] HEATHER SCHROEDER Facility:[facility] Start: 05-04-2021 Office outpatient visit 15 minutes Cristopher Chang Work Phone: [facility] Work Phone: Start: 10-25-2017 Ambulatory Ian Diaz Fac ility:[facility] Procedures Date Procedure Procedure Detail Performing Clinician Start: 02-20-2022 Colonoscopy Deyanira Chan Comment on above: rectal polyp x1, small Ih Start: 02-20-2022 Esophagogastroduodenoscopy Deyanira corbett Comment on above: esophageal dilation, schatki's ring Bladder Surgery Cristopher carl Work Phone: Bunion Correct Resec t Joint [facility] First Toe Implant Cristopher Chang Work Phone: Excision of bunion Wiliam HERNANDEZ Hysterectomy Cristopher Chang Work Phone: Hysterectomy Wiliam WALLACE Knee Surgery Cristopher Chang Work Phone: Repair of stress inc ontinence by suprapubic sling Wiliam WALLACE Spinal arthrodesis Wiliam Lary DICKINSONJAMILA Viral screening Samantha Bustos Other Plan of Treatment Date Care Activity Detail Author Start: 07-01-2024 [facility] Immunizations Immunization Date Immunization Notes Care Provider Fa cility 11-25-2021 SARS-CoV-2 (COVID-19 ) mRNA BNT-162b2 vax Trudi JUARESAM [facility] 01-26-2021 SARS-CoV-2 (COVID-19 ) Ad26 vaccine, recombinant Roost [facility] NEGATED: Highlighted row has not occurred!01-11-2022 influenza virus vaccine, unspecified formulation Deyanira Vazquezmetz [facility] Payers Date Payer Category Payer Self-pay [id number] 2023 Private Health Insurance [id number] 1958 Unknown [id number] 1955 Unknown [id number] 1955 Unknown [id number] 1955 Unknown [id number] 1955 Unknown [id number] 1955 Unknown [id number] .[id number]. [id number] 1956 Unknown [id number]. 1259 1956 Unknown [id number] [id number] 1956 Unknown [id number]. 1259 1956 Unknown [id number]. 1259 Unknown [id number] Unknown [facility] Unknown [id number] Social History Date Type Detail Facility Tobacco smoking stat [facility] Unknown if ever smoked [facility] Start: 1955 Sex Assigned At Female [facility] [address] Work Phone: Start: 08-03-2017 End: 03-14-2022 Tobacco smoking status Never smoked tobacco (finding) [facility] Tobacco smoking status Never [facility] Sex Assigned At Female [facility] Goals Date Patient Goal Desired Activity /State Functional Status Date Assessment Result Facility 05-05-2024 Functional Status N/A [facility] Clinical Notes 03-14-2022 to 05-05-2024 Note Date & Type Note Facility 05-05-2024 Hospital Discharg e instructions Patient Education 05/05/2024 10:51:46 Cystoscopy Cystoscopy Cystoscopy is a procedure that is used to help diagnose and sometimes treat conditions that affect the lower urinary tract. The lower urinary tract includes the bladder and the urethra. The urethra is the tube that drains urine from the bladder. Cystoscopy is done using a thin, tube-shaped instrument with a light and camera at the end (cystoscope). The cystoscope may be hard or flexible, depending on the goal of the procedure. The cystoscope is inserted through the urethra, into the bladder. Cystoscopy may be recommended if you have: Urinary tract infections that keep coming back. Blood in the urine (hematuria). An inability to control when you urinate (urinary incontinence) or an overactive bladder. Unusual cells found in a urine sample. A blockage in the urethra, such as a urinary stone. Painful urination. An abnormality in the bladder found during an intravenous pyelogram (IVP) or CT scan. Cystoscopy may also be done to remove a sample of tissue to be examined under a microscope (biopsy). Tell a health care provider about: Any allergies you have. All medicines you are taking, including vitamins, herbs, eye drops, creams, and rxos-xpd-egurrnp medicines. Any problems you or family members have had with anesthetic medicines. Any blood disorders you have. Any surgeries you have had. Any medical conditions you have. Whether you are or may be . What are the risks? Generally, this is a safe procedure. However, problems may occur, including: Infection. Bleeding. Allergic reactions to medicines. Damage to other structures or organs. What happens before the procedure? Medicines Ask your health care provider about: Changing or stopping your regular medicines. This is especially important if you are taking diabetes medicines or blood thinners. Taking medicines such as aspirin and ibuprofen. These medicines can thin your blood. Do not take these medicines unless your health care provider tells you to take them. Taking zufi-ngf-hzirshw medicines, vitamins, herbs, and supplements. Tests You may have an exam or testing, such as: X-rays of the bladder, urethra, or kidneys. CT scan of the abdomen or pelvis. Urine tests to check for signs of infection. General instructions Follow instructions from your health care provider about eating or drinking restrictions. Ask your health care provider what steps will be taken to help prevent infection. These steps may include: ?Washing skin with a germ-killing soap. ?Taking antibiotic medicine. Plan to have a responsible adult take you home from the hospital or clinic. What happens during the procedure? You will be given one or more of the following: ?A medicine to help you relax (sedative). ?A medicine to numb the area (local anesthetic). The area around the opening of your urethra will be cleaned. The cystoscope will be passed through your urethra into your bladder. Germ-free (sterile) fluid will flow through the cystoscope to fill your bladder. The fluid will stretch your bladder so that your health care provider can clearly examine your bladder fulton. Your doctor will look at the urethra and bladder. Your doctor may take a biopsy or remove stones. The cystoscope will be removed, and your bladder will be emptied. The procedure may vary among health care providers and hospitals. What can I expect after the procedure? After the procedure, it is common to have: Some soreness or pain in your abdomen and urethra. Urinary symptoms. These include: ?Mild pain or burning when you urinate. Pain should stop within a few minutes after you urinate. This may last for up to 1 week. ?A small amount of blood in your urine for several days. ?Feeling like you need to urinate but producing only a small amount of urine. Follow these instructions at home: Medicines Take phkp-cnr-hhenkxp and prescription medicines only as told by your health care provider. If you were prescribed an antibiotic medicine, take it as told by your health care provider. Do not stop taking the antibiotic even if you start to feel better. General instructions Return to your normal activities as told by your health care provider. Ask your health care provider what activities are safe for you. If you were given a sedative during the procedure, it can affect you for several hours. Do not drive or operate machinery until your health care provider says that it is safe. Watch for any blood in your urine. If the amount of blood in your urine increases, call your health care provider. Follow instructions from your health care provider about eating or drinking restrictions. If a tissue sample was removed for testing (biopsy) during your procedure, it is up to you to get your test results. Ask your health care provider, or the department that is doing the test, when your results will be ready. Drink enough fluid to keep your urine pale yellow. Keep all follow-up visits. This is important. Contact a health care provider if: You have pain that gets worse or does not get better with medicine, especially pain when you urinate. You have trouble urinating. You have more blood in your urine. Get help right away if: You have blood clots in your urine. You have abdominal pain. You have a fever or chills. You are unable to urinate. Summary Cystoscopy is a procedure that is used to help diagnose and sometimes treat conditions that affect the lower urinary tract. Cystoscopy is done using a thin, tube-shaped instrument with a light and camera at the end. After the procedure, it is common to have some soreness or pain in your abdomen and urethra. Watch for any blood in your urine. If the amount of blood in your urine increases, call your health care provider. If you were prescribed an antibiotic medicine, take it as told by your health care provider. Do not stop taking the antibiotic even if you start to feel better. This information is not intended to replace advice given to you by your health care provider. Make sure you discuss any questions you have with your health care provider. Document Revised: 07/19/2022 Document Reviewed: 06/17/2021 [employer] Patient Education 2022 [employer]. Follow Up Care 03/24/2024 15:37:07 With:WILL LARA, Wiliam Gardner, URL Address: [facility] [address] , [place] [address]- When: Unknown [facility] 05-05-2024 Note Chief Complaint referral for incontinence HPI Staff Referral for incontinence by Dr. Garrido. Pt states that she had a bladder sling procedure done about 15 years at the [facility]. She states that the incontinence is causing a rash with itching and pain and burning on the skin of her vaginal area. This has been ongoing for a couple of years now. Dysuria: no Incomplete bladder emptying: pt states that she feels she is emptying Hematuria: no Frequency: no Urgency: no Nocturia: 0-1x Stream: no straining Leaking: yes Post void dripping: no Wearing pads/ Depends: pt is not wearing pads because she states it is too uncomfortable Urge incontinence: this has happened a few times due to having to wait too long to get to a bathroom Stress incontinence: yes Incontinence without Sensory Awareness: no Abdominal pain: no Flank pain: no Sexual complaints: pt states that due to the rash and urine leaking she is always sore History of Present Illness Tests reviewed: reviewed UA, referral records I have reviewed the previous health record information and history for this patient from Dr. Garrido. I have reviewed and verified the staff HPI to be accurate for this encounter. There have been no associated fever, chills, flank pain, or blood in the urine. Denies any urinary infections since last encounter. Review of Systems PHQ Score Initial Depression Screen Score: 0 SCORE ROS - Provider Constitutional: denies weight loss, denies hot flashes. Eyes: denies eye problems. Gastrointestinal: denies nausea, denies vomiting. Cardiovascular: denies chest pain or angina. Integumentary: no dryness Musculoskeletal: denies musculoskeletal symptoms. ENMT: denies otolaryngeal symptoms. Respiratory: no shortness of breath. Heme/Lymph: denies easy bleeding tendency, denies easy bruising tendency. Psychiatric: no confusion, no anxiety. Genitourinary: See HPI. Physical Exam Vitals & Measurements T: 37 ?C(Temporal Artery) HR: 87(Peripheral) RR: 16 BP: 138/85 HT: 62 in HT: 158 cm WT: 70 kg WT: 154 lb BMI: 28.04 General Appearance: alert , no acute distress, well nourished, well developed female. Head: normocephalic . Eyes: normal orbit and globe. ENMT: normal examination of external ears. Chest: Lungs CTA, respirations non labored . Cardiovascular: regular rate and rhythm. Abdomen: soft , non distended, no tenderness, no mass or organomegaly, no hernia. Genitourinary: bladder nonpalpable, no flank tenderness. Lymph Nodes: unremarkable palpation of the cervical area. Skin: warm, dry, no bruising. Psychiatric: cooperative, affect appropriate for age, normal judgement, euthymic mood. Assessment/Plan Nancy is a 69 yo female new pt referred by Dr. Garrido due to incontinence s/p bladder sling 15 yrs ago at [facility]. S/p hysterectomy. 1. Overflow incontinence (N39.490: Overflow incontinence) S/p bladder sling and prolapse repair 15 yrs ago at [facility] by Dr. Jimenez due to bladder prolapse. Likely had large piece of mesh placed. Pt was dry after sling. Leaking starting 5 yr ago. Leaking worsens with increased fluid intake and coffee. Tried cream through Dr. uBstos, does not recall cream. [place] it was washed away each time she voided. Then saw [facility] at Dr. Garrido's office due to cloudy urine. Was dx with bacterial infection/vaginosis, took abx course and other med x 2 wks which improved sx. Educated pt on bladder emptying maneuvers and bladder irritants. -Limit bladder irritants. Educational pamphlets provided. -Start using cred? maneuver and double voids. -Try using a pad again. Should be less irritating with cream for #3. -Retrieve op note from [facility]. -Will schedule cysto with pelvic exam. The risks and benefits for cystoscopy have been discussed. The risks include bleeding, infection, and irritation of the bladder and urinary channel, among others. The patient, after being informed of procedural details and after questions have been answered, wishes to proceed. Full informed consent has been obtained. Will order Local anesthesia. Prophylactic abx sent to [facility]. 2. Incomplete bladder emptying (R33.9: Retention of urine, unspecified) PVR 216 cc. Feels she empties completely then leaks shortly after going to the bathroom. Voids wo difficulty. 3. Vaginal itching (N89.8: Other specified noninflammatory disorders of vagina) UA shows small leuks. Leaking has caused vaginal and labial itching. No irritation on inner thighs. Does not wear pads, worsened the irritation when she tried in the past. -Start Clobetasol bid. Rx sent to [facility]. 4. Dysuria (R30.0: Dysuria) Also has burning with urination which would not be caused by external irritation. Follow-up With When Contact Information Wiliam WALLACE MD, URL [facility] [address] [place] [address]- Additional Instructions: schedule cysto with pelvic exam Patient Education Cystoscopy I, Nasra Tiwari, personally scribed for Dr. Will og (more content not included)... [facility] Comment on above: Result Comment: Elec tronically Signed By: Wiliam WALLACE MD\.br\Date and Time Signed: 05/05/24 10:55 EDT\.br\Electronically Co-Signed By: Nasra Tiwari\.br\Date and Time Co-Signed: 05/05/24 10:52 EDT 05-05-2024 Note Urology Cystoscopy Cystoscopy is a procedure that is used to help diagnose and sometimes treat conditions that affect the lower urinary tract. The lower urinary tract includes the bladder and the urethra. The urethra is the tube that drains urine from the bladder. Cystoscopy is done using a thin, tube-shaped instrument with a light and camera at the end (cystoscope). The cystoscope may be hard or flexible, depending on the goal of the procedure. The cystoscope is inserted through the urethra, into the bladder. Cystoscopy may be recommended if you have: ? Urinary tract infections that keep coming back. ? Blood in the urine (hematuria). ? An inability to control when you urinate (urinary incontinence) or an overactive bladder. ? Unusual cells found in a urine sample. ? A blockage in the urethra, such as a urinary stone. ? Painful urination. ? An abnormality in the bladder found during an intravenous pyelogram (IVP) or CT scan. Cystoscopy may also be done to remove a sample of tissue to be examined under a microscope (biopsy). Tell a health care provider about: ? Any allergies you have. ? All medicines you are taking, including vitamins, herbs, eye drops, creams, and vpqe-njj-nkbpors medicines. ? Any problems you or family members have had with anesthetic medicines. ? Any blood disorders you have. ? Any surgeries you have had. ? Any medical conditions you have. ? Whether you are or may be . What are the risks? Generally, this is a safe procedure. However, problems may occur, including: ? Infection. ? Bleeding. ? Allergic reactions to medicines. ? Damage to other structures or organs. What happens before the procedure? Medicines Ask your health care provider about: ? Changing or stopping your regular medicines. This is especially important if you are taking diabetes medicines or blood thinners. ? Taking medicines such as aspirin and ibuprofen. These medicines can thin your blood. Do not take these medicines unless your health care provider tells you to take them. ? Taking scqz-gfm-mjpjeod medicines, vitamins, herbs, and supplements. Tests You may have an exam or testing, such as: ? X-rays of the bladder, urethra, or kidneys. ? CT scan of the abdomen or pelvis. ? Urine tests to check for signs of infection. General instructions ? Follow instructions from your health care provider about eating or drinking restrictions. ? Ask your health care provider what steps will be taken to help prevent infection. These steps may include: ? Washing skin with a germ-killing soap. ? Taking antibiotic medicine. ? Plan to have a responsible adult take you home from the hospital or clinic. What happens during the procedure? ? You will be given one or more of the following: ? A medicine to help you relax (sedative). ? A medicine to numb the area (local anesthetic). ? The area around the opening of your urethra will be cleaned. ? The cystoscope will be passed through your urethra into your bladder. ? Germ-free (sterile) fluid will flow through the cystoscope to fill your bladder. The fluid will stretch your bladder so that your health care provider can clearly examine your bladder [place]. ? Your doctor will look at the urethra and bladder. Your doctor may take a biopsy or remove stones. ? The cystoscope will be removed, and your bladder will be emptied. The procedure may vary among health care providers and hospitals. What can I expect after the procedure? After the procedure, it is common to have: ? Some soreness or pain in your abdomen and urethra. ? Urinary symptoms. These include: ? Mild pain or burning when you urinate. Pain should stop within a few minutes after you urinate. This may last for up to 1 week. ? A small amount of blood in your urine for several days. ? Feeling like you need to urinate but producing only a small amount of urine. Follow these instructions at home: Medicines ? Take ucec-mfc-iuguoco and prescription medicines only as told by your health care provider. ? If you were prescribed an antibiotic medicine, take it as told by your health care provider. Do not stop taking the antibiotic even if you start to feel better. General instructions ? Return to your normal activities as told by your health care provider. Ask your health care provider what activities are safe for you. ? If you were given a sedative during the procedure, it can affect you for several hours. Do not drive or operate machinery until your health care provider says that it is safe. ? Watch for any blood in your urine. If the amount of blood in your urine increases, call your health care provider. ? Follow instructions from your health care provider about eating or drinking restrictions. ? If a tissue sample was removed for testing (biopsy) during your procedure, it is up to you to get your test results. Ask your health care provider, or the department th (more content not included)... [facility] 12-26-2022 Evaluation note Encounter Date Diagnosis Assessment Notes Dec, Vulvovaginitis (ICD-10 - N76.0) Explained prescription cream should help with irritation and itching. Discussed various brands of incontinence pads. Offered medication to help with urinary incontinence which she did not declines at this time. Also offered a referral for [facility] or urology for chronic incontinence which she declines as well. [facility] Other 04-26-2022 Hospital Discharge instructions Patient Education 03/14/2022 13:17:44 Dysphagia Dysphagia Dysphagia is trouble swallowing. This condition occurs when solids and liquids stick in a person's throat on the way down to the stomach, or when food takes longer to get to the stomach than usual. You may have problems swallowing food, liquids, or both. You may also have pain while trying to swallow. It may take you more time and effort to swallow something. What are the causes? This condition may be caused by: Muscle problems. They may make it difficult for you to move food and liquids through the esophagus,which is the tube that connects your mouth to your stomach. Blockages. You may have ulcers, scar tissue, or inflammation that blocks the normal passage of foodand liquids. Causes of these problems include: ?Acid reflux from your stomach into your esophagus (gastroesophageal reflux). ?Infections. ?Radiation treatment for cancer. ?Medicines taken without enough fluids to wash them down into your stomach. Stroke. This can affect the nerves and make it difficult to swallow. Nerve problems. These prevent signals from being sent to the muscles of your esophagus to squeeze (contract) and move what you swallow down to your stomach. Globus pharyngeus. This is a common problem that involves a feeling like something is stuck in yourthroat or a sense of trouble with swallowing, even though nothing is wrong with the swallowing passages. Certain conditions, such as cerebral palsy or Parkinson's disease. What are the signs or symptoms? Common symptoms of this condition include: A feeling that solids or liquids are stuck in your throat on the way down to the stomach. Pain while swallowing. Coughing or gagging while trying to swallow. Other symptoms include: Food moving back from your stomach to your mouth (regurgitation). Noises coming from your throat. Chest discomfort with swallowing. A feeling of fullness when swallowing. Drooling, especially when the throat is blocked. Heartburn. How is this diagnosed? This condition may be diagnosed by: Barium X-ray. In this test, you will swallow a white liquid that sticks to the inside of your esophagus. X-ray images are then taken. Endoscopy. In this test, a flexible telescope is inserted down your throat to look at your esophagus and your stomach. CT scans and an MRI. How is this treated? Treatment for dysphagia depends on the cause of this condition, such as: If the dysphagia is caused by acid reflux or infection, medicines may be used. They may include antibiotics and heartburn medicines. If the dysphagia is caused by problems with the muscles, swallowing therapy may be used to help youstrengthen your swallowing muscles. You may have to do specific exercises to strengthen the musclesor stretch them. If the dysphagia is caused by a blockage or mass, procedures to remove the blockage may be done. You may need surgery and a feeding tube. You may need to make diet changes. Ask your health care provider for specific instructions. Follow these instructions at home: Medicines Take fowa-grr-rarpwta and prescription medicines only as told by your health care provider. If you were prescribed an antibiotic medicine, take it as told by your health care provider. Do notstop taking the antibiotic even if you start to feel better. Eating and drinking Follow any diet changes as told by your health care provider. Work with a diet and student finance specialist (dietitian) to create an eating plan that will help you get the nutrients you need in order to stay healthy. Eat soft foods that are easier to swallow. Cut your food into small pieces and eat slowly. Take small bites. Eat and drink only when you are sitting upright. Do not drink alcohol or caffeine. If you need help quitting, ask your health care provider. General instructions Check your weight every day to make sure you are not losing weight. Do not use any products that contain nicotine or tobacco, such as cigarettes, e- cigarettes, and chewing tobacco. If you need help quitting, ask your health care provider. Keep all follow-up visits as told by your health care provider. This is important. Contact a health care provider if you: Lose weight because you cannot swallow. Cough when you drink liquids. Cough up partially digested food. Get help right away if you: Cannot swallow your saliva. Have shortness of breath, a fever, or both. Have a hoarse voice and also have trouble swallowing. Summary Dysphagia is trouble swallowing. This condition occurs when solids and liquids stick in a person's throat on the way down to the stomach. You may cough or gag while trying to swallow. Dysphagia has many possible causes. Treatment for dysphagia depends on the cause of the condition. Keep all follow-up visits as told by your health care provider. This is important. This information is not intended to replace advice given to you by your health care provider. Make sure you discuss any questions you have with your health care provider. Document Released: 11/02/2001 Document Revised: 03/31/2020 Document Reviewed: 03/31/2020 [employer] Patient Education 2019 [employer]. Follow Up Care 02/23/2022 16:00:41 With:Deyanira Chan CNP Address: When:3 months [facility] Evaluation + Plan note Future Appointments Appointment Date:06/13/2022 10:00:00 AM Scheduled Provider:Deyanira Chan CNP Location:[facility] [place] [facility] Appointment Type:[facility] Follow Up Future Scheduled Tests Radiology* XR Esophagus 03/14/22 [facility] Evaluation noteNo assessment information available [facility] Work Phone: History general Narrative - Reported* Type Description Date Medical History Connective tissue autoimmune dis ease Medical History Arthritis Medical History Spinal Stenosis Medical History Lumbar Fusion Medical History anxiety Medical History Gastroesophageal ref lux disease with esophagitis without hemorrhage Medical History Chronic vasomotor rhinitis Medical History Palpitation Medical History Screening for viral disease Medical History Chest pain at rest Surgical History Lumbar Fusion 08/2014 Surgical History right hand surgery 08/2017 Hospitalization History SEE SURGICAL HX [facility] Other Hospital course Narrative No data available for this section [facility] Hospital Discharge instructions No data available for this section [facility] Progress note No data available for this section [facility] Summary Purpose Family History No Family History Records Found Relationship Condition Age at Onset Recorded Date/T breonna father Unknown mother Unknown Malignant neoplasm Unknown sister Malignant neoplasm Unknown Advance Directives No Advanced Directives Records Found Advance Directive Response Recorded Date/ Time Advance Directives No July 9:28am Assessments No Assessments Information Available Chief Complaint * The patient returns today. I last saw her on 10/25/2017. She is status post laminectomy and decompression L4-S1, with instrumented posterior fusion at L5- S1 on 08/28/14. * I last saw her on 10/31/2017. She was having some recurrent symptoms, but MRI showed no significantnerve compression or stenosis. * She states that she did well after that visit as we prescribed medications and exercises. * She states that over the past 6 to 8 weeks she has had recurrent back pain with some symptoms into the right lower extremity. She denies weakness, but states that she does have a bit of numbness in her calves. * On exam, she has 5/5 strength, normal sensation, negative nerve tension signs. She walks with a bitof an antalgic gait. * Shopping cart sign is positive. Upper motor neuron signs are negative. Vascular exam within normal limits. Homans' sign is negative. * She has not had any treatment for her recurrent symptoms over the past 6 to 8 weeks. * I am recommending a Medrol Dosepak and I have also prescribed meloxicam to start after her Medrol pack is completed. I am also prescribing Lidoderm patches. She already takes Flexeril. * I am also referring for physical therapy lumbar spine. She has not had physical therapy for years since her prior surgery, and I think that restarting an exercise program may be of some benefit. * Virtual visit with me in 3 weeks. If she is getting better perhaps we can watch [id number]. If she is not getting better, I will likely need to get an MRI so that we can evaluate further. Additional Source Comments INFORMATION SOURCE (unrecogn ized section and content) DATE CREATED AUTHOR 05/14/2018 [facility] DATE CREATED AUTHOR AUTHOR'S ORGANIZ ATION 05/06/2021 [facility] DATE CREATED AUTHOR AUTHOR'S ORGANIZ ATION 05/10/2021 [facility] DATE CREATED AUTHOR AUTHOR'S ORGANIZ ATION 04/13/2022 [facility] DATE CREATED AUTHOR AUTHOR'S ORGANIZ ATION 06/04/2024 [facility] DATE CREATED AUTHOR AUTHOR'S ORGANIZ ATION 07/03/2024 [facility] DATE CREATED AUTHOR AUTHOR'S ORGANIZ ATION 07/11/2024 [facility] Care Team (unrecognized sect ion and content) Team Status: Inactive Member Role Status Dates Cony Garrido DO Attending Provider Active Start : July 01, 2024 End: July 01, 2024 REASON FOR VISIT (unrecogniz ed section and content) Itchiness/ Irritation in vag inal area Goals (unrecognized section and content) Goals may be documented in a n alternate section FOR RECORDS PERTAINING TO PATIENTS WHO ARE OR HAVE BEEN ENROLLED IN A CHEMICAL DEPENDENCY/SUBSTANCEABUSE PROGRAM, SOME INFORMATION MAY BE OMITTED. This clinical summary was aggregated from multiple sources. Caution should be exercised in using it in the provision of clinical care. This summary normalizes information from multiple sources, and as a consequence, information in this document may materially change the coding, format and clinical context of patient data. In addition, data may be omitted in some cases. CLINICAL DECISIONS SHOULD BE BASED ON THE PRIMARY CLINICAL RECORDS. [email or web address] provides no warranty or guarantee of the accuracy or completeness of information in this document.
== END 2024-07-01 12:12 | disposition home or self-care (01) ==
LOC: LAB 12:11
PROVIDERS: PCP Family Medicine; Visit Provider Obstetrics & Gynecology
DX: N89.8 Other specified noninflammatory disorders of vagina (principal)
CPT/HCPCS: 88305; 88312; 88341; 88342

== ENCOUNTER 2024-08-16 08:20 | Outpatient (OUT) | payer OTHER, SELFPAY ==
--- OUTSIDE RECORDS SUMMARY | 2024-08-16 08:23 | XMS_ITS | CCD ---
Author Organization [facility] Care Team Providers Care Fur Dresser Name Role Phone Ian Diaz Unavailable Cristopher Arevalo Benjamin Edward Unavailable Alvarez Chang, Cristopher Martinez Unavailable Unavailable Unavailable CRISTOPHER CHANG Primary Care Physician ALEXANDRE, DR ROMERO Attending Unavailable TIMMIS, DR ROMERO Consulting Unavailable BUSTOS, DR SAMANTHA Martinez Primary Care Unavailable TIMMIS, DR ROMERO Admitting Unavailable MICHAEL, DR YOST Referring Unavailable [place], DR RAHUL Espinoza Consulting Unavailable DELLA, DR VILLARREAL Consulting Unavailable DELLA, DR VILLARREAL Admitting Unavailable BUSTOS, DR SAMANTHA Martinez Primary Care Unavailable DELLA, DR VILLARREAL Attending Unavailable Samantha Bustos Unavailable RALPH AYERS Referring Unavailable Wiliam WALLACE Attending Unavailable Wiliam WALLACE Attending Unavailable DO Cony Garrido Attending Provider Cony Garrido Attending Unavailable Cony Garrido Admitting Unavailable RALPH AYERS Attending Unavailable RALPH AYERS Attending Unavailable RALPH AYERS Attending Unavailable RALPH AYERS Attending Unavailable CONY GARRIDO Attending Unavailable CONY GARRIDO Attending Unavailable Unavailable Unavailable Unavailable Allergies Allergy Classification Reported Allergen(s) Allergy Type Date of Onset Reaction(s) Facility (1 source) No Known Medication Allergies; Translations: [No Known Medication Allergies] Propensity to adverse reactions (disorder) [facility] Repository Medications Current Medications Medication Drug Class(es) Dates Sig (Normalized) Sig (Original) acetaminophen 325 mg / HYDROcodone bitartrate 5 mg oral tablet (2 sources) Opioid Agonist Start: 08-20-2017 take 1 tablet by mouth every four to six hours Hydrocodone-Aceta minophen ([facility]) 5-325 mg tablet Active 1 - 2 [...] Ordered Start: 08-20-2017 take 1 capsule by [facility] once daily Duloxetine Active 1 CAP [...] completed, # 2 tab(s), Refills(s) 0, Pharmacy: [facility] 1155, 158, cm, 05/05/24 10:21:00 EDT, Height/Length Dosing, 70, kg, 05/05/24 10:21:00 EDT, Weight Dosing Start Date: 05/05/24 Status: Ordered cyclobenzaprine (8 sources) Muscle Relaxant Start: 02-17-2022 take 3 tablets by mouth once daily at bedtime cyclobenzaprine 10 mg, Oral, Once a day (at bedtime), takes 3 tabs, Refills(s) 0, Spasm Start Date: 02/17/22 Status: Ordered Start: 08-20-2017 take 3 tablets by mo [facility] at bedtime Cyclobenzaprine Active 3 [...] 04-11-2022 Chronic Other aftercare (1 source) 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 Scanned copy available in EMR. PERFORMED BY: [place] [id number] PATHOLOGIST INDUCTION HEAT TREATER CHELSEA CALL M.D. Performed By: #### P ATH TO [facility] #### [address] Auth for Release of Medical Recordson 05-06-2024 Auth for Release of Medical Records [id number]#1.00TIFF [facility] Consent for Procedure/Surger yon 05-06-2024 Consent for Procedure/Surger y [id number]#1.00TIFF [facility] Formson 05-06-2024 Forms [id number]#1.00TIFF [facility] Physician Referralon 024 Physician Referral [id number]#1.00TIFF [facility] Ambulatory Visit Summaryon 0 05-05-2024 Ambulatory Visit [...] Schedule the Following Appointments Follow Up with WILL LARA, Wiliam Gardner, SIMRAN When: Where: [facility] [address], [place] [address]- Medications What How Much When Instructions Unchanged [...] for choosing us for your care. Normal [facility] C3 and C4 COMPLEMENTon 04-12 Complement C3, Serum 144 mg/dL Normal 82-167 [facility] Comment on above: Performed By: #### CSUITE #### [facility] [address] [address] [address] Will Stroud Complement C4, Serum 31 mg/dL Normal 12-38 [facility] Comment on above: Performed By: #### CSUITE #### [facility] [address] [address] [address] Will Stroud COMPLEMENT TOTAL (CH50)on Complement, Total (CH50) >60 Normal >41 [facility] Comment on above: Result Comment: Age [...] values. Performed By: #### C H50T #### [facility] [address] [address] [address] Will Stroud CBC AUTO DIFFon 04-11-2022 BASO # 0.0 103/ul Normal 0.0-0.1 [facility] Comment on above: Performed By: #### CBC #### [facility] [address] [address] [address] Will Stroud Basophils/100 WBC (Bld) 0.9 % Normal 0.2-2.0 [facility] Comment on above: Performed By: #### CBC #### [facility] [address] [address] [address] Will Stroud EO # 0.1 103/ul Normal 0.0-0.7 [facility] Comment on above: Performed By: #### CBC #### [facility] [address] [address] [address] Will Stroud Eosinophils/100 WBC (Bld) 1.7 % Normal 0.9-7.0 [facility] Comment on above: Performed By: #### CBC #### [facility] [address] [place] [address] Dr. Will Stroud Erythrocyte distribution width (RBC) [Ratio] 12.4 % Normal 11.0-15.0 [facility] Comment on above: Performed By: #### CBC #### [facility] [address] [place] [address] Dr. Will Stroud Hematocrit (Bld) [Volume fraction] 41.3 % Normal 36.0-48.0 [facility] Comment on above: Performed By: #### CBC #### [facility] [address] [place] [address] Dr. Will Stroud Hemoglobin (Bld) [Mass/Vol] 13.5 g/dL Normal 12.0-16.0 [facility] Comment on above: Performed By: #### CBC #### [facility] [address] [place] [address] Dr. Will Stroud IG # 0.00 10e3/ul Normal 0.00-0.03 [facility] Comment on above: Performed By: #### CBC #### [facility] [address] [place] [address] Dr. Will Stroud IG % 0.0 % Normal 0.0-0.5 [facility] Comment on above: Performed By: #### CBC #### [facility] [address] [place] [address] Dr. Will Stroud LYMPH # 1.3 103/ul Normal 1.2-3.8 [facility] Comment on above: Performed By: #### CBC #### [facility] [address] [place] [address] Dr. Will Stroud Lymphocytes/100 WBC (Bld) 29.6 % Normal 20.5-60.0 [facility] Comment on above: Performed By: #### CBC #### [facility] [address] [place] [address] Dr. Will Stroud MANUAL DIFF REQ NO Normal [facility] Comment on above: Performed By: #### CBC #### [facility] [address] [place] [address] Dr. Will Stroud MCH (RBC) [Entitic mass] 31.1 pg Normal 26.7-34.0 [facility] Comment on above: Performed By: #### CBC #### [facility] [address] [place] [address] Dr. Will Stroud MCHC (RBC) [Mass/Vol] 32.7 g/dL Normal 29.9-35.2 [facility] Comment on above: Performed By: #### CBC #### [facility] [address] [place] [address] Dr. Will Stroud MCV (RBC) [Entitic vol] 95.2 fL Normal 81.0-99.0 [facility] Comment on above: Performed By: #### CBC #### [facility] [address] [place] [address] Dr. Will Stroud MONO # 0.5 103/ul Normal 0.3-0.8 [facility] Comment on above: Performed By: #### CBC #### [facility] [address] [place] [address] Dr. Will Stroud Monocytes/100 WBC (Bld) 11.4 % Normal 1.7-12.0 [facility] Comment on above: Performed By: #### CBC #### [facility] [address] [place] [address] Dr. Will Stroud NEUT # 2.4 103/ul Normal 1.4-6.5 [facility] Comment on above: Performed By: #### CBC #### [facility] [address] [place] [address] Dr. Will Stroud Neutrophils/100 WBC (Bld) 56.4 % Normal 43.0-75.0 [facility] Comment on above: Performed By: #### CBC #### [facility] [address] [place] [address] Dr. Will Stroud Platelet mean volume (Bld) [Entitic vol] 8.6 fL Critically low 9.5-13.5 [facility] Comment on above: Performed By: #### CBC #### [facility] [address] [place] [address] Dr. Will Stroud PLT 237 103/ul Normal 150-450 [facility] Comment on above: Performed By: #### CBC #### [facility] [address] [place] [address] Dr. Will Stroud RBC 4.34 106/ul Normal 4.20-5.40 [facility] Comment on above: Performed By: #### CBC #### [facility] [address] [place] [address] Dr. Will Stroud WBC 4.2 103/ul Normal 4.0-11.0 [facility] Comment on above: Performed By: #### CBC #### [facility] [address] [place] [address] Dr. Will Stroud PROF 14(COMP METB)on 022 Albumin [Mass/Vol] 3.8 g/dL Normal 3.4-5.0 [facility] Comment on above: Performed By: #### CMP #### [facility] [address] [place] [address] Dr. Will Stroud Albumin/Globulin [Mass ratio] 1.0 {ratio} Normal [facility] Comment on above: Performed By: #### CMP #### [facility] [address] [place] [address] Dr. Will Stroud ALP [Catalytic activity/Vol] 110 U/L Normal 46-116 [facility] Comment on above: Performed By: #### CMP #### [facility] [address] [place] [address] Dr. Will Stroud ALT [Catalytic activity/Vol] 33 U/L Normal 14-59 [facility] Comment on above: Performed By: #### CMP #### [facility] [address] [address] [address] Will Stroud Anion gap [Moles/Vol] 11.8 mmol/L Normal [facility] Comment on above: Performed By: #### CMP #### [facility] [address] [address] [address] Will Stroud AST [Catalytic activity/Vol] 21 U/L Normal 15-37 [facility] Comment on above: Performed By: #### CMP #### [facility] [address] [address] [address] Will Stroud Bilirubin [Mass/Vol] 0.4 mg/dL Normal 0.2-1.0 [facility] Comment on above: Performed By: #### CMP #### [facility] [address] [place] [address] Dr. Will Stroud Calcium [Mass/Vol] 9.0 mg/dL Normal 8.5-10.1 [facility] Comment on above: Performed By: #### CMP #### [facility] [address] [place] [address] Dr. Will Stroud Chloride [Moles/Vol] 102 mmol/L Normal 98-107 [facility] Comment on above: Performed By: #### CMP #### [facility] [address] [place] [address] Dr. Will Stroud CO2 [Moles/Vol] 29.3 mmol/L Normal 21.0-32.0 [facility] Comment on above: Performed By: #### CMP #### [facility] [address] [place] [address] Dr. Will Stroud Creatinine [Mass/Vol] 0.86 mg/dL Normal 0.55-1.02 [facility] Comment on above: Performed By: #### CMP #### [facility] [address] [place] [address] Dr. Will Stroud EGFR-AF GREENLANDIC >60 Normal >=60 [facility] Comment on above: Performed By: #### CMP #### [facility] [address] [place] [address] Dr. Will Stroud EGFR-NON AF GREENLANDIC >60 Normal >=60 [facility] Comment on above: Performed By: #### CMP #### [facility] [address] [address] [address] Will Stroud Globulin (S) [Mass/Vol] 3.8 g/dL Normal [facility] Comment on above: Performed By: #### CMP #### [facility] [address] [address] [address] Will Stroud Glucose [Mass/Vol] 106 mg/dL Normal 74-106 [facility] Comment on above: Performed By: #### CMP #### [facility] [address] [address] [address] Will Stroud Potassium [Moles/Vol] 4.1 mmol/L Normal 3.5-5.1 [facility] Comment on above: Performed By: #### CMP #### [facility] [address] [place] [address] Dr. Will Stroud Protein [Mass/Vol] 7.6 g/dL Normal 6.4-8.2 [facility] Comment on above: Performed By: #### CMP #### [facility] [address] [address] [address] Will Stroud Sodium [Moles/Vol] 139 mmol/L Normal 136-145 [facility] Comment on above: Performed By: #### CMP #### [facility] [address] [address] [address] Will Stroud Urea nitrogen [Mass/Vol] 15.0 mg/dL Normal 7.0-18.0 [facility] Comment on above: Performed By: #### CMP #### [facility] [address] [address] [address] Will Stroud Urea nitrogen/Creatin ine [Mass ratio] 17.4 mg/mg Normal [facility] Comment on above: Performed By: #### CMP #### [facility] [address] [address] [address] Will Stroud SED RATE [facility] 2021 SED RATE 6 mm/hr Normal <=30 [facility] Comment on above: Performed By: #### SEDR #### [facility] [address] [place] [address] Dr. Will Stroud UA RANDOM W/MICROSCOPICon BACTERIA NONE SEEN Normal NONE SEEN [facility] Comment on above: Performed By: #### UAMIC #### [facility] [address] [place] [address] Dr. Will Stroud Bilirubin Ql (U) Negative Normal NEGATIVE [facility] Comment on above: Performed By: #### UAMIC #### [facility] [address] [place] [address] Dr. Will Stroud CAST NONE SEEN Normal NONE SEEN [facility] Comment on above: Performed By: #### UAMIC #### [facility] [address] [place] [address] Dr. Will Stroud Clarity (U) CLEAR Normal CLEAR [facility] Comment on above: Performed By: #### UAMIC #### [facility] [address] [place] [address] Dr. Will Stroud Color (U) LT. YELLOW Normal YELLOW [facility] Comment on above: Performed By: #### UAMIC #### [facility] [address] [place] [address] Dr. Will Stroud Crystals LM Nom (Urine sed) NONE SEEN Normal NONE SEEN [facility] Comment on above: Performed By: #### UAMIC #### [facility] [address] [place] [address] Dr. Will Stroud Epithelial cells LM Ql (Urine sed) RARE Normal NONE SEEN /RARE [facility] Comment on above: Performed By: #### UAMIC #### [facility] [address] [place] [address] Dr. Will Stroud Glucose Ql (U) Negative Normal NEGATIVE [facility] Comment on above: Performed By: #### UAMIC #### [facility] [address] [place] [address] Dr. Will Stroud Hemoglobin Ql (U) Negative Normal NEGATIVE [facility] Comment on above: Performed By: #### UAMIC #### [facility] [address] [place] [address] Dr. Will Stroud Ketones Ql (U) Negative Normal NEGATIVE [facility] Comment on above: Performed By: #### UAMIC #### [facility] [address] [place] [address] Dr. Will Stroud LEUKOCYTES SMALL Abnormal NEGATIVE [facility] Comment on above: Performed By: #### UAMIC #### [facility] [address] [place] [address] Dr. Will Stroud MUCOUS NONE SEEN Normal NONE SEEN [facility] Comment on above: Performed By: #### UAMIC #### [facility] [address] [place] [address] Dr. Will Stroud Nitrite Ql (U) Negative Normal NEGATIVE [facility] Comment on above: Performed By: #### UAMIC #### [facility] [address] [place] [address] Dr. Will Stroud pH (U) 6.5 [pH] Normal 5-9 [facility] Comment on above: Performed By: #### UAMIC #### [facility] [address] [place] [address] Dr. Will Stroud RBC NONE SEEN Abnormal 0-2 [facility] Comment on above: Performed By: #### UAMIC #### [facility] [address] [place] [address] Dr. Will Stroud SPEC GRAVITY <=1.005 Abnormal 1.005-<=1.02 5 [facility] Comment on above: Performed By: #### UAMIC #### [facility] [address] [place] [address] Dr. Will Stroud UA PROTEIN Negative Normal NEGATIVE/ TRACE [facility] Comment on above: Performed By: #### UAMIC #### [facility] [address] [place] [address] Dr. Will Stroud Urobilinogen Qn (U) 0.2 {Fausto'U}/dL Normal 0.2 - 1.0 [facility] Comment on above: Performed By: #### UAMIC #### [facility] [address] [place] [address] Dr. Will Stroud WBC 0-2 Abnormal NONE SEEN [facility] Comment on above: Performed By: #### UAMIC #### [facility] [address] [address] [address] Will Stroud XR ESOPHAGUSon 11-18-2021 XR [...] RAHUL DOVE Date: 2021-11-18 12:29 Normal [facility] BN SPINE, LUMBOSACRAL; MIN 4 VIEWSon 05-04-2021 BN SPINE, LUMBOSACRAL; MIN 4 VIEWS Patient Name: NANCY GAINES STUDY: SPINE, LUMBOSACRAL MIN 4 VIEWS INDICATION: AP/LAT FLEX & EXT. COMPARISON: October 25, 2017 ACCESSION NUMBER(S): [id number] ORDERING CLINICIAN: IAN DIAZ FINDINGS: L4-5 laminectomy and posterior fusion with pedicle screws at L5-S1. Hardware satisfactory. Alignment unchanged with anterolisthesis L5 on S1. No pathologic motion seen. IMPRESSION: Status post lower lumbar laminectomy with L5-S1 posterior fusion, unchanged in appearance without evidence of complication. Electronically signed by: KARIN AGARWAL MD Normal [facility] No Panel Informationon 05-04 Please click on [...] Hold For - Scheduling,Retrospective Authorization Requested for: [id number] Low back pain, Neck pain Start: methylPREDNISolone [...] is getting better perhaps we can watch lybx-uyb-ocy. If she is not getting better, I [...] is getting better perhaps we can watch onfn-lfp-int. If she is not getting better, I [...] laminectomy change. No distinct hardware complication isevident. Wtlq-gm-yjoacvmw multilevel degenerative changes seen of thevisualized spine. IMPRESSION:1. Grade 1 anterolisthesis of L 5 on S 1.2. Surgical and degenerative changes discussed above.Electronically signed by: ROSALBA JACOBO MD Normal [facility] Vital Signs Date Time Vital Sign Value Performing Clinician Facility 05-05-2024 10:14-0400 Blood Pressure Location Wiliam WALLACE [facility] 05-05-2024 10:14-0400 Body temperature 98.6 [degF] Wiliam WALLACE [facility] 05-05-2024 10:14-0400 Diastolic blood pressure 85 mm[Hg] Wiliam WALLACE [facility] 05-05-2024 10:14-0400 Heart rate 87 /min Wiliam WALLACE [facility] 05-05-2024 10:14-0400 Respiratory rate 16 /min Wiliam WALLACE [facility] 05-05-2024 10:14-0400 Systolic blood pressure 138 mm[Hg] Wiliam WALLACE [facility] 12-26-2022 12:30-0500 Body height 154.94 cm Samantha Bustos Other [facility] Other 12-26-2022 12:30-0500 Body mass index (BMI) [Ratio] 30.23 kg/m2 Samantha Bustos Other [facility] Other 12-26-2022 12:30-0500 Body weight 72.58 kg Samantha Bustos Other [facility] Other 12-26-2022 12:30-0500 Diastolic blood pressure 100 mm[Hg] Samantha Bustos Other [facility] Other 12-26-2022 12:30-0500 SaO2% (BldA) [Mass fraction] 97 % Samantha Bustos Other [facility] Other 12-26-2022 12:30-0500 Systolic blood pressure 142 mm[Hg] Samantha Bustos Other [facility] Other 03-14-2022 13:01-0400 Blood Pressure Location Deyanira Chan [facility] 03-14-2022 13:01-0400 Body temperature 98.06 [degF] Deyanira Chan [facility] 03-14-2022 13:01-0400 Diastolic blood pressure 76 mm[Hg] Deyanira Chan [facility] 03-14-2022 13:01-0400 Heart rate 87 /min Deyanira Chan [facility] 03-14-2022 13:01-0400 SaO2% (BldA) [Mass fraction] 99 % Deyanira Chan [facility] 03-14-2022 13:01-0400 Systolic blood pressure 136 mm[Hg] Deyanira Chan [facility] Encounters Encounter Date Encounter Type Care Provider Facility Start: 07-28-2024 End: 07-28-2024 ambulatory CONY HEMA Not Available Start: 07-01-2024 End: 07-01-2024 ambulatory Cony Hema [facility] Work Phone: Start: 07-01-2024 End: 07-01-2024 Departed Referred DO Cony Hema Work Phone: [facility] Start: 07-01-2024 End: 07-01-2024 ambulatory CONY HEMA Not Available Start: 06-18-2024 End: 06-18-2024 ambulatory RALPH ANDRIA Not Available Start: 06-10-2024 End: 06-10-2024 ambulatory RALPH ANDRIA Not Available Start: 05-19-2024 End: 05-19-2024 ambulatory Wiliam WALLACE Facility:CD:[id number] Start: 05-05-2024 End: 05-05-2024 ambulatory RALPH L ANDRIA Facility:[facility] Start: 05-05-2024 End: 05-05-2024 Patient encounter procedure [facility] Start: 04-07-2024 End: 04-07-2024 ambulatory RALPH ANDRIA Not Available Start: 03-21-2024 ambulatory RALPH AYERS Facility:[facility] Start: 03-18-2024 End: 03-18-2024 ambulatory RALPH AYERS Not Available Start: 12-26-2022 End: 12-26-2022 ambulatory Samantha Bustos Other [facility] Other Start: 12-26-2022 Office outpatient visit 15 minutes Samantha Bustos [facility] Start: 08-17-2022 End: 08-17-2022 Patient encounter procedure Trudi MCCANN [facility] Start: 07-11-2022 Chart Update Cristopher lawrence Work Phone: [facility] Work Phone: Start: 04-11-2022 End: 04-12-[address] CHERELLE HULL Facility:[facility] Start: 03-14-2022 End: 03-14-2022 Patient encounter procedure Deyanira Chan [facility] Start: 11-18-2021 End: 11-19-[address] HEATHER SCHROEDER Facility:[facility] Start: 05-04-2021 Office outpatient visit 15 minutes Cristopher Chang Work Phone: [id number] Work Phone: Start: 10-25-2017 Ambulatory Ian Diaz Fac ility:[facility] Procedures Date Procedure Procedure Detail [...] suprapubic sling Wiliam WALLACE Spinal arthrodesis Wiliam HERNANDEZ Viral screening Samantha Bustos Other Plan of Treatment Date Care Activity Detail Author Start: 07-01-2024 [facility] Immunizations Immunization Date Immunization Notes Care Provider Kimberley zepeda 11-25-2021 SARS-CoV-2 (COVID-19 ) mRNA BNT-162b2 vax Brush EyesquadAM [facility] 01-26-2021 SARS-CoV-2 (COVID-19 ) Ad26 vaccine, recombinant Brush Overhead.fm [facility] NEGATED: Highlighted row has not occurred!01-11-2022 influenza virus vaccine, unspecified formulation Deyanira Rocio [facility] Payers Date Payer Category Payer Self-pay [id number] 2023 Private Health Insurance [id number] 1959 Unknown [id number] 1956 Unknown [id number]. 593 1956 Unknown [id number] .[id number]. 593 1956 Unknown [id number] .[id number]. 727 1956 Unknown [id number] 2.16.840.1.398530.3.579.2. 727 1956 Unknown [id number] 2.16.840.1.022503.3.579.2. 1259 1956 Unknown [id number] 2.16.840.1.690929.3.579.2. 1259 1956 Unknown [id number] 2.16.840.1.685887.3.579.2. 1259 1956 Unknown [id number] 2.16.840.1.948652.3.579.2. 1259 1956 Unknown [id number] 2.16.840.1.434939.3.579.2. 1259 1956 Unknown [id number] 2.16.840.1.709578.3.579.2. 1259 Unknown [id number] Unknown [facility] Unknown [id number] [id number]. 531 Social History Date Type Detail Facility [facility] Start: 1955 Sex Assigned At Female F [facility] Never a smoker Never a smoker -[facility] [place] Work Phone: Start: 08-03-2017 End: 03-14-2022 Tobacco smoking status Never smoked tobacco (finding) [facility] Tobacco smoking status Never [facility] Sex Assigned At Female [facility] Goals Date Patient Goal Desired Activity /State Functional Status Date Assessment Result Facility 05-05-2024 Functional Status N/A [facility] [place] Clinical Notes 03-14-2022 to 05-05-2024 Note Date [...] including vitamins, herbs, eye drops, creams, and pvgj-krp-lvitbio medicines. Any problems you or family members [...] provider tells you to take them. Taking pjdl-ypl-ndkguyg medicines, vitamins, herbs, and supplements. Tests You [...] Follow these instructions at home: Medicines Take fdkh-fsm-qaiaovg and prescription medicines only as told by [...] provider. Document Revised: 07/19/2022 Document Reviewed: 06/17/2021 [employer] Patient Education 2022 [employer]. Follow Up Care 03/24/2024 15:37:07 With:WILL LARA, Wiliam Gardner, SIMRAN Address: [facility] [address] [place] [address]- When: Unknown [facility] 05-05-2024 Note Chief Complaint referral for incontinence HPI Staff Referral for incontinence by Dr. Garrido. Pt states that she had a bladder sling procedure done about 15 years at the [facility]. She states that the incontinence [...] s/p bladder sling 15 yrs ago at [facility]. S/p hysterectomy. 1. Overflow incontinence (N39.490: Overflow incontinence) S/p bladder sling and prolapse repair 15 yrs ago at [facility] by Dr. Jimenez due to bladder prolapse. Likely had large piece of mesh placed. Pt was dry after sling. Leaking starting 5 yr ago. Leaking worsens with increased fluid intake and coffee. Tried cream through Dr. Bustos, does not recall cream. Amado it was washed away each time she [...] order Local anesthesia. Prophylactic abx sent to [facility]. 2. Incomplete bladder emptying (R33.9: Retention of [...] past. -Start Clobetasol bid. Rx sent to [facility]. 4. Dysuria (R30.0: Dysuria) Also has burning with urination which would not be caused by external irritation. Follow-up With When Contact Information Wiliam WALLACE MD, URL [facility] [address] [place] [address]- Additional Instructions: schedule cysto with pelvic exam Patient Education Cystoscopy I, Nasra Tiwari, personally scribed for Dr. Will og (more content not included)... [facility] Comment on above: Result Comment: Elec tronically [...] including vitamins, herbs, eye drops, creams, and tavi-ysm-dlmhbrz medicines. ? Any problems you or family [...] tells you to take them. ? Taking wehc-zdi-eovkywg medicines, vitamins, herbs, and supplements. Tests You [...] these instructions at home: Medicines ? Take rsuh-evo-dodmtab and prescription medicines only as told by [...] the department th (more content not included)... [facility] 12-26-2022 Evaluation note Encounter Date Diagnosis Assessment Notes Dec, Vulvovaginitis (ICD-10 - N76.0) Explained prescription cream should help with irritation and itching. Discussed various brands of incontinence pads. Offered medication to help with urinary incontinence which she did not declines at this time. Also offered a referral for [facility] or urology for chronic incontinence which she declines as well. [employer] Other 04-26-2022 Hospital Discharge instructions Patient Education [...] Follow these instructions at home: Medicines Take xcyf-cvh-yyaoezd and prescription medicines only as told by your health care provider. If you were prescribed an antibiotic medicine, take it as told by your health care provider. Do notstop taking the antibiotic even if you start to feel better. Eating and drinking Follow any diet changes as told by your health care provider. 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 Follow Up Care 02/23/2022 16:00:41 With:Deyanira Chan CNP Address: When:3 months [facility] Evaluation + Plan note Future Appointments Appointment Date:06/13/2022 10:00:00 AM Scheduled Provider:Deyanira Chan CNP Location:[facility] Appointment Type:[facility] Follow Up Future Scheduled Tests Radiology* XR Esophagus 03/14/22 [facility] Evaluation noteNo assessment information available [facility] Work Phone: History general Narrative - [...] surgery 08/2017 Hospitalization History SEE SURGICAL HX [employer] Other Hospital course Narrative No data available for this section [facility] Hospital Discharge instructions No data available for this section [facility] Progress note No data available for this section [facility] Summary Purpose Family History No [...] is getting better perhaps we can watch cchl-btf-oop. If she is not getting better, I will likely need to get an MRI so that we can evaluate further. Additional Source Comments INFORMATION SOURCE (unrecogn ized section and content) DATE CREATED AUTHOR 05/14/2018 [facility] DATE CREATED AUTHOR AUTHOR'S ORGANIZ ATION 05/06/2021 [employer] DATE CREATED AUTHOR AUTHOR'S ORGANIZ ATION 05/10/2021 [facility] DATE CREATED AUTHOR AUTHOR'S ORGANIZ ATION 04/13/2022 [facility] DATE CREATED AUTHOR AUTHOR'S ORGANIZ ATION 06/04/2024 [facility] DATE CREATED AUTHOR AUTHOR'S ORGANIZ ATION 07/11/2024 [facility] DATE CREATED AUTHOR AUTHOR'S ORGANIZ ATION 07/29/2024 [facility] EPIC Care Team (unrecognized sect ion and content) [...] BE BASED ON THE PRIMARY CLINICAL RECORDS. [facility] [employer] provides no warranty or guarantee of the accuracy or completeness of information in this document.
[2024-08-16 09:29] LABS: Basophils Percent Auto 1.1 % (0.2-2.0); Eosinophils Absolute Auto 0.1 10^3/uL (0.0-0.7); Eosinophils Percent Auto 2.2 % (0.9-7.0); Hematocrit 38.3 % (36.0-48.0); Hemoglobin 12.3 g/dL (12.0-16.0); Immature Granulocytes Abs Auto 0.01 10^3/uL (0.00-0.03); Immature Granulocytes Pct Auto 0.3 % (0.0-0.5); Lymphocytes Absolute Auto 1.1 10^3/uL (1.2-3.8); Lymphocytes Percent Auto 30.2 % (20.5-60.0); Mean Corpuscular HGB Conc 32.1 g/dL (29.9-35.2); Mean Corpuscular Hemoglobin 31.9 pg (26.7-34.0); Mean Corpuscular Volume 99.5 fL (81.0-99.0); Mean Platelet Volume 8.9 fL (9.5-13.5); Monocytes Absolute Auto 0.3 10^3/uL (0.3-0.8); Monocytes Percent Auto 9.3 % (1.7-12.0); Neutrophils Absolute Auto 2.1 10^3/uL (1.4-6.5); Neutrophils Percent Auto 56.9 % (43.0-75.0); Platelet Count 214 10^3/uL (150-450); Red Blood Count 3.85 10^6/uL (4.20-5.40); Red Cell Distribution Width 13.1 % (11.0-15.0); White Blood Count 3.6 10^3/uL (4.0-11.0)
[2024-08-16 10:08] LABS: Erythrocyte Sedimentation Rate 12 mm/hr (<=30)
[2024-08-16 11:04] LABS: Alanine Aminotransferase 20 U/L (14-59); Albumin Globulin Ratio 1.1; Albumin Level 3.4 g/dL (3.4-5.0); Alkaline Phosphatase 91 U/L (46-116); Anion Gap 10.3; Aspartate Amino Transferase 16 U/L (15-37); Bilirubin Total 0.4 mg/dL (0.2-1.0); C Reactive Protein <0.50 mg/dL (<=0.50); Calcium 8.8 mg/dL (8.5-10.1); Carbon Dioxide 28.8 mmol/L (21.0-32.0); Chloride 103 mmol/L (98-107); Estimated GFR (African America >60 (>=60); Estimated GFR (Non-African Ame >60 (>=60); Globulin 3.2 g/dL; Glucose 115 mg/dL (74-106); Potassium 4.1 mmol/L (3.5-5.1); Sodium 138 mmol/L (136-145); Total Protein 6.6 g/dL (6.4-8.2)
[2024-08-16 11:27] LABS: Bilirubin Urine LARGE (NEGATIVE); Blood Urine NEGATIVE (NEGATIVE); Clarity Urine CLEAR (CLEAR); Color Urine YELLOW (YELLOW); Glucose Urine UA NEGATIVE (NEGATIVE); Ketones Urine NEGATIVE (NEGATIVE); Leukocyte Esterase Urine TRACE (NEGATIVE); Nitrite Urine NEGATIVE (NEGATIVE); Protein Urine NEGATIVE (NEG/TRACE); Specific Gravity Urine 1.025 (1.005-1.025); Urobilinogen Urine 0.2 EU/dL (0.2-1.0)
[2024-08-16 13:01] LABS: Bacteria Urine MODERATE #/HPF (NONE SEEN); Mucus Urine MODERATE (NONE SEEN); RBC Urine NONE SEEN #/HPF (0-2)
[2024-08-16 13:02] LABS: Cast Seen? NONE SEEN #/LPF (NONE SEEN); Crystals Seen? None Seen #/HPF (None Seen); Squamous Epithelial Cell Urine FEW #/LPF (NONE/RARE); Transitional Epi Cells Urine RARE #/LPF (NONE SEEN); Urine Culture Indicated YES
[2024-08-17 07:07] LABS: Complement C3, Serum 125 mg/dL (82-167); Complement C4, Serum 22 mg/dL (12-38)
[2024-08-18 12:08] LABS: Complement, Total (CH50) >60 U/mL (>41)
== END 2024-08-16 08:21 | disposition home or self-care (01) ==
LOC: LAB 08:21
PROVIDERS: PCP Family Medicine; Visit Provider Internal Medicine Rheumatology
DX: M15.0 Primary generalized (osteo)arthritis (principal); M36.8 Systemic disorders of connective tissue in other diseases classified elsewhere; Z79.899 Other long term (current) drug therapy
CPT/HCPCS: 36415; 80053; 81001; 85025; 85652; 86140; 86160; 86162; 87086

== ENCOUNTER 2024-10-14 19:37 | Outpatient (REF) | payer OTHER, SELFPAY ==
--- OUTSIDE RECORDS SUMMARY | 2024-10-14 19:41 | XMS_ITS | CCD ---
Author Organization [facility] ion [facility] Care Team Providers Care Nut Sheller Machine Operator Name Role Phone Ian Diaz Unavailable Cristopher Arevalo Unavailable UnavailCristopher Vivas Unavailable Cristopher Augustin Unavailable Unavailable Unavailable CRISTOPHER CHANG Primary Care Physician [phone] ALEXANDRE, DR ROMERO Attending Unavailable TIMRYANS, DR ROMERO Consulting Unavailable AKASH, DR SAMANTHA Kelly Primary Care Unavailable TIMWINNIE, DR ROMERO Admitting Unavailable MICHAEL, DR YOST Referring Unavailable TRAER, DR RAHUL Espinoza Consulting Unavailable DELLA, DR VILLARREAL Consulting Unavailable DELLA, DR VILLARREAL Admitting Unavailable AKASH, DR SAMANTHA Kelly Primary Care Unavailable DELLA, DR VILLARREAL Attending Unavailable Samantha Toro Unavailable DO Cony Garrido Attending Provider Cony Garrido Attending Unavailable Cony Garrido Admitting Unavailable RALPH AYERS Attending Unavailable ANDRIA, RALPH Attending Unavailable RALPH AYERS Attending Unavailable RALPH AYERS Attending Unavailable CONY GARRIDO Attending Unavailable CONY GARRIDO Attending Unavailable Wiliam WALLACE Attending Unavailable RALPH AYERS Referring Unavailable Wiliam WALLACE Attending Unavailable Unavailable Primary Care Provider Unavaillynda kelly Unavailable Unavailable Unavailable Allergies Allergy Classification Reported Allergen(s) Allergy Type Date of Onset Reaction(s) Facility (1 source) No Known Medication Allergies; Translations: [No Known Medication Allergies] Propensity to adverse reactions (disorder) [facility] Repository Medications Current Medications Medication Drug Class(es) Dates Sig (Normalized) Sig (Original) acetaminophen 325 mg / HYDROcodone bitartrate 5 mg oral tablet (2 sources) Opioid Agonist Start: 08-20-2017 take 1 tablet by mouth every four to six hours Hydrocodone-Aceta minophen ([place]) 5-325 mg tablet Active 1 - 2 TAB PO EVERY 4-6 HOURS 40 August 20, 2017 10:07am ARIPiprazole 2 mg oral tablet (5 sources) Atypical Antipsychotic Start: 01-11-2022 take 1 tablet by mouth at bedtime ARIPiprazole (Abilify) 2 MG tablet Take 2 mg by mouth at bedtime 02/22/2024 Active clobetasol propionate 0.0005 mg/mg topical ointment (1 [...] Start: 09-23-2019 DULoxetine 60 mg oral capsule (10 sources) Serotonin and Norepinephrine Reuptake Inhibitor Start: 02-17-2022 take 60 mg by mouth once daily duloxetine 60 mg, Oral, Daily, Refills(s) 0, Depression Start Date: 02/17/22 Status: Ordered Start: 08-20-2017 take 1 capsule by mo [facility] once daily Duloxetine Active 1 CAP Oral Daily August 20, 2017 7:28am take 2 capsules by m outh once daily DULoxetine (Cymbalta) [address] capsule Take 120 mg by mouth Daily Active Cymbalta 30 MG O ral Capsule Delayed Release Particles Quantity: 0 Refills: 0 Ordered: 12-Feb-2014 DO Active Cymbalta 60 MG O ral Capsule Delayed Release Particles Quantity: 0 Refills: 0 Ordered: 12-Feb-2014 DO Active etodolac 500 mg oral tablet (5 sources) Nonsteroidal Anti-inflammatory Drug Start: 01-11-2022 take [...] completed, # 2 tab(s), Refills(s) 0, Pharmacy: [facility] 1155, 158, cm, 05/05/24 10:21:00 EDT, Height/Length Dosing, 70, kg, 05/05/24 10:21:00 EDT, Weight Dosing Start Date: 05/05/24 Status: Ordered cyclobenzaprine (9 sources) Muscle Relaxant Start: 02-17-2022 take 3 tablets by mouth once daily at bedtime cyclobenzaprine 10 mg, Oral, Once a day (at bedtime), takes 3 tabs, Refills(s) 0, Spasm Start Date: 02/17/22 Status: Ordered Start: 08-20-2017 take 3 tablets by mo uth at bedtime Cyclobenzaprine Active 3 TAB Oral Bedtime August 20, 2017 7:28am take 1 tablet by rudolph at bedtime cyclobenzaprine (Flexeril) 10 MG tablet Take 10 mg by mouth at bedtime Active Flexeril Active Flexeril TABS Qu antity: 0 [...] 04-11-2022 Chronic Other aftercare (1 source) Other terminal operations supervisor (current) drug therapy; Translations: [OTH GROUP HOME CURRENT DRUG THERAPY] Onset: 04-13-2022 Episodic Other [...] Other Problems Problem Classification Problem Date Documented Date Episodic/Chronic Esophageal disorders (1 source) Esophageal disorders; Translations: [Gastroesophageal reflux disease with esophagitis without hemorrhage] Other female genital disorders (1 source) Burning sensation of vagina; Translations: [Other specified conditions associated with female genital organs and menstrual cycle] Onset: 06-18-2024 06-18-2024 Episodic Other female genital disorders (1 source) Vaginal lesion; Translations: [Other specified noninflammatory disorders of vagina] Onset: 06-18-2024 06-18-2024 Episodic Unclassified (3 sources) Autoimmune (qualifier value) 02-18-2016 Results Test Name Value Interpretation Reference Range Facility Pathology Request for Lab Co rpon 07-01-2024 Pathology Request for Lab Todd Normal [facility] Comment on above: Order Comment: PATHOLOGY SECURITY NURSE SPECIMEN Result Comment: See report. Scanned copy available in EMR. PERFORMED BY: [place] [id number] PATHOLOGIST CONCRETE PAVING MACHINE OPERATOR CHELSEA CALL M.D. Performed By: #### P ATH TO [facility] #### [address] Auth for Release of Medical Recordson 05-06-2024 Auth for Release of Medical Records [id number] Normal [facility] Consent for Procedure/Surger yon 05-06-2024 Consent for Procedure/Surger y [id number] Normal [facility] Formson 05-06-2024 Forms [id number]#[id number] Normal [facility] Physician Referralon 024 Physician Referral [id number] Normal [facility] Ambulatory Visit Summaryon 0 05-05-2024 Ambulatory Visit Summary JANEYLEWIS NANCY Espinoza :1955 Visit Date:05/05/2024 Ambulatory Visit Instructions Your Diagnosis Overflow incontinence Incomplete bladder emptying Vaginal itching Dysuria Your Care Team Attending Physician - WILL LARA, Wiliam Gardner Primary Care Physician - CRISTOPHER CHANG DO Referring Physician - RALPH AYERS PA-C This Is Your Medications List Contact prescribing physician if questions or concerns aripiprazole cyclobenzaprine duloxetine (Cymbalta 60 mg Rustam) etodolac Procedures Performed Colonoscopy (02/20/2022), Esophagogastroduodenoscopy (02/20/2022), Bunionectomy, Hysterectomy, Sling procedure of bladder neck, Spinal fusion. Discharge Vitals Temperature (Temporal Artery) 37 ?C Heart Rate (Peripheral) 87 Respiratory Rate 16 Blood Pressure 138/85 Height 158 cm Height 62 in Weight 70 kg Weight 154 lb BMI 28.04 What to do next You Need to Schedule the Following Appointments Follow Up with WILL LARA, SIMRAN Nash When: Where: [facility] [address] [place] [address]- Medications What How Much When Instructions Unchanged aripiprazole 2 Milligram By Mouth Every day Contact prescribing physician if questions or concerns Unchanged cyclobenzaprine 10 Milligram By Mouth Once a day (at bedtime) takes 3 tabs Contact prescribing physician if questions or concerns Unchanged duloxetine (Cymbalta 60 mg Cap-) By Mouth Contact prescribing physician if questions [...] for choosing us for your care. Normal [facility] C3 and C4 COMPLEMENTon 04-12 Complement C3, Serum 144 mg/dL Normal 82-167 [facility] Comment on above: Performed By: #### CSUITE #### [facility] [address] [address] [address] Will Stroud Complement C4, Serum 31 mg/dL Normal 12-38 [facility] Comment on above: Performed By: #### CSUITE #### [facility] [address], [place] [address] Dr. Will Stroud COMPLEMENT TOTAL (CH50)on Complement, Total (CH50) >60 Normal >41 [facility] Comment on above: Result Comment: Age [...] values. Performed By: #### C H50T #### [facility] [address] [place] [address] Dr. Will Stroud CBC AUTO DIFFon 04-11-2022 BASO # 0.0 103/ul Normal 0.0-0.1 [facility] Comment on above: Performed By: #### CBC #### [facility] [address] [place] [address] Dr. Will Stroud Basophils/100 WBC (Bld) 0.9 % Normal 0.2-2.0 [facility] Comment on above: Performed By: #### CBC #### [facility] [address] [place] [address] Dr. Will Stroud EO # 0.1 103/ul Normal 0.0-0.7 [facility] Comment on above: Performed By: #### CBC #### [facility] [address] [place] [address] Dr. Will Stroud Eosinophils/100 WBC (Bld) 1.7 % Normal 0.9-7.0 [facility] Comment on above: Performed By: #### CBC #### [facility] [address] [place] [address] Dr. Will Stroud Erythrocyte distribution width (RBC) [Ratio] 12.4 % Normal 11.0-15.0 [facility] Comment on above: Performed By: #### CBC #### [facility] [address] [place] [address] Dr. Will Stroud Hematocrit (Bld) [Volume fraction] 41.3 % Normal 36.0-48.0 [facility] Comment on above: Performed By: #### CBC #### [facility] [address] [place] [address] Dr. Will Stroud Hemoglobin (Bld) [Mass/Vol] 13.5 g/dL Normal 12.0-16.0 [facility] Comment on above: Performed By: #### CBC #### [facility] [address] [place] [address] Dr. Will Stroud IG # 0.00 10e3/ul Normal 0.00-0.03 [facility] Comment on above: Performed By: #### CBC #### [facility] [address] [place] [address] Dr. Will Stroud IG % 0.0 % Normal 0.0-0.5 [facility] Comment on above: Performed By: #### CBC #### [facility] [address] [place] [address] Dr. Will Stroud LYMPH # 1.3 103/ul Normal 1.2-3.8 [facility] Comment on above: Performed By: #### CBC #### [facility] [address] [place] [address] Dr. Will Stroud Lymphocytes/100 WBC (Bld) 29.6 % Normal 20.5-60.0 [facility] Comment on above: Performed By: #### CBC #### [facility] [address] [place] [address] Dr. Will Stroud MANUAL DIFF REQ NO Normal [facility] Comment on above: Performed By: #### CBC #### [facility] [address] [place] [address] Dr. Will Stroud MCH (RBC) [Entitic mass] 31.1 pg Normal 26.7-34.0 [facility] Comment on above: Performed By: #### CBC #### [facility] [address] [place] [address] Dr. Will Stroud MCHC (RBC) [Mass/Vol] 32.7 g/dL Normal 29.9-35.2 [facility] Comment on above: Performed By: #### CBC #### [facility] [address] [place] [address] Dr. Will Stroud MCV (RBC) [Entitic vol] 95.2 fL Normal 81.0-99.0 [facility] Comment on above: Performed By: #### CBC #### [facility] [address] [place] [address] Dr. Will Stroud MONO # 0.5 103/ul Normal 0.3-0.8 [facility] Comment on above: Performed By: #### CBC #### [facility] [address] [place] [address] Dr. Will Stroud Monocytes/100 WBC (Bld) 11.4 % Normal 1.7-12.0 [facility] Comment on above: Performed By: #### CBC #### [facility] [address] [place] [address] Dr. Will Stroud NEUT # 2.4 103/ul Normal 1.4-6.5 [facility] Comment on above: Performed By: #### CBC #### [facility] [address] [place] [address] Dr. Will Stroud Neutrophils/100 WBC (Bld) 56.4 % Normal 43.0-75.0 [facility] Comment on above: Performed By: #### CBC #### [facility] [address] [place] [address] Dr. Will Stroud Platelet mean volume (Bld) [Entitic vol] 8.6 fL Critically low 9.5-13.5 [facility] Comment on above: Performed By: #### CBC #### [facility] [address] [place] [address] Dr. Will Stroud PLT 237 103/ul Normal 150-450 [facility] Comment on above: Performed By: #### CBC #### [facility] [address] [place] [address] Dr. Will Stroud RBC 4.34 106/ul Normal 4.20-5.40 [facility] Comment on above: Performed By: #### CBC #### [facility] [address] [place] [address] Dr. Will Stroud WBC 4.2 103/ul Normal 4.0-11.0 [facility] Comment on above: Performed By: #### CBC #### [facility] [address] [place] [address] Dr. Will Stroud PROF 14(COMP METB)on 022 Albumin [Mass/Vol] 3.8 g/dL Normal 3.4-5.0 [facility] Comment on above: Performed By: #### CMP #### [facility] [address] [place] [address] Dr. Will Stroud Albumin/Globulin [Mass ratio] 1.0 {ratio} Normal [facility] Comment on above: Performed By: #### CMP #### [facility] [address] [place] [address] Dr. Will Stroud ALP [Catalytic activity/Vol] 110 U/L Normal 46-116 [facility] Comment on above: Performed By: #### CMP #### [facility] [address] [place] [address] Dr. Will Stroud ALT [Catalytic activity/Vol] 33 U/L Normal 14-59 [facility] Comment on above: Performed By: #### CMP #### [facility] [address] [place] [address] Dr. Will Stroud Anion gap [Moles/Vol] 11.8 mmol/L Normal [facility] Comment on above: Performed By: #### CMP #### [facility] [address] [place] [address] Dr. Will Stroud AST [Catalytic activity/Vol] 21 U/L Normal 15-37 [facility] Comment on above: Performed By: #### CMP #### [facility] [address] [place] [address] Dr. Will Stroud Bilirubin [Mass/Vol] 0.4 mg/dL Normal 0.2-1.0 [facility] Comment on above: Performed By: #### CMP #### [facility] [address] [place] [address] Dr. Will Stroud Calcium [Mass/Vol] 9.0 mg/dL Normal 8.5-10.1 [facility] Comment on above: Performed By: #### CMP #### [facility] [address] [place] [address] Dr. Will Stroud Chloride [Moles/Vol] 102 mmol/L Normal 98-107 [facility] Comment on above: Performed By: #### CMP #### [facility] [address] [place] [address] Dr. Will Stroud CO2 [Moles/Vol] 29.3 mmol/L Normal 21.0-32.0 [facility] Comment on above: Performed By: #### CMP #### [facility] [address] [address] [address] Will Stroud Creatinine [Mass/Vol] 0.86 mg/dL Normal 0.55-1.02 [facility] Comment on above: Performed By: #### CMP #### [facility] [address] [place] [address] Dr. Will Stroud EGFR-AF SPANISH >60 Normal >=60 [facility] Comment on above: Performed By: #### CMP #### [facility] [address] [address] [address] Will Stroud EGFR-NON AF SPANISH >60 Normal >=60 [facility] Comment on above: Performed By: #### CMP #### [facility] [address] [place] [address] Dr. Will Stroud Globulin (S) [Mass/Vol] 3.8 g/dL Normal [facility] Comment on above: Performed By: #### CMP #### [facility] [address] [place] [address] Dr. Will Stroud Glucose [Mass/Vol] 106 mg/dL Normal 74-106 [facility] Comment on above: Performed By: #### CMP #### [facility] [address] [place] [address] Dr. Will Srtoud Potassium [Moles/Vol] 4.1 mmol/L Normal 3.5-5.1 [facility] Comment on above: Performed By: #### CMP #### [facility] [address] [place] [address] Dr. Will Stroud Protein [Mass/Vol] 7.6 g/dL Normal 6.4-8.2 [facility] Comment on above: Performed By: #### CMP #### [facility] [address] [place] [address] Dr. Will Stroud Sodium [Moles/Vol] 139 mmol/L Normal 136-145 [facility] Comment on above: Performed By: #### CMP #### [facility] [address] [place] [address] Dr. Will Stroud Urea nitrogen [Mass/Vol] 15.0 mg/dL Normal 7.0-18.0 [facility] Comment on above: Performed By: #### CMP #### [facility] [address] [place] [address] Dr. Will Stroud Urea nitrogen/Creatin ine [Mass ratio] 17.4 mg/mg Normal [facility] Comment on above: Performed By: #### CMP #### [facility] [address] [place] [address] Dr. Will Stroud [facility] SED RATE 6 mm/hr Normal <=30 [facility] Comment on above: Performed By: #### SEDR #### [facility] [address] [place] [address] Dr. Will Stroud UA RANDOM W/MICROSCOPICon BACTERIA NONE SEEN Normal NONE SEEN [facility] Comment on above: Performed By: #### UAMIC #### [facility] [address] [place] [address] Dr. Will Stroud Bilirubin Ql (U) Negative Normal NEGATIVE [facility] Comment on above: Performed By: #### UAMIC #### [facility] [address] [place] [address] Dr. Will Stroud CAST NONE SEEN Normal NONE SEEN [facility] Comment on above: Performed By: #### UAMIC #### [facility] [address] [place] [address] Dr. Will Stroud Clarity (U) CLEAR Normal CLEAR [facility] Comment on above: Performed By: #### UAMIC #### [facility] [address] [place] [address] Dr. Will Stroud Color (U) LT. YELLOW Normal YELLOW [facility] Comment on above: Performed By: #### UAMIC #### [facility] [address] [place] [address] Dr. Will Stroud Crystals LM Nom (Urine sed) NONE SEEN Normal NONE SEEN [facility] Comment on above: Performed By: #### UAMIC #### [facility] [address] [place] [address] Dr. Will Stroud Epithelial cells LM Ql (Urine sed) RARE Normal NONE SEEN /RARE [facility] Comment on above: Performed By: #### UAMIC #### [facility] [address] [place] [address] Dr. Will Stroud Glucose Ql (U) Negative Normal NEGATIVE [facility] Comment on above: Performed By: #### UAMIC #### [facility] [address] [place] [address] Dr. Will Stroud Hemoglobin Ql (U) Negative Normal NEGATIVE [facility] Comment on above: Performed By: #### UAMIC #### [facility] [address] [place] [address] Dr. Will Stroud Ketones Ql (U) Negative Normal NEGATIVE [facility] Comment on above: Performed By: #### UAMIC #### [facility] [address] [place] [address] Dr. Will Stroud LEUKOCYTES SMALL Abnormal NEGATIVE [facility] Comment on above: Performed By: #### UAMIC #### [facility] [address] [place] [address] Dr. Will Stroud MUCOUS NONE SEEN Normal NONE SEEN [facility] Comment on above: Performed By: #### UAMIC #### [facility] [address] [place] [address] Dr. Will Stroud Nitrite Ql (U) Negative Normal NEGATIVE [facility] Comment on above: Performed By: #### UAMIC #### [facility] [address] [place] [address] Dr. Will Stroud pH (U) 6.5 [pH] Normal 5-9 [facility] Comment on above: Performed By: #### UAMIC #### [facility] [address] [place] [address] Dr. Will Stroud RBC NONE SEEN Abnormal 0-2 [facility] Comment on above: Performed By: #### UAMIC #### [facility] [address] [place] [address] Dr. Will Stroud SPEC GRAVITY <=1.005 Abnormal 1.005-<=1.02 5 [facility] Comment on above: Performed By: #### UAMIC #### [facility] [address] [address] [address] Will Stroud UA PROTEIN Negative Normal NEGATIVE/ TRACE [facility] Comment on above: Performed By: #### UAMIC #### [facility] [address] [address] [address] Will Stroud Urobilinogen Qn (U) 0.2 {Fausto'U}/dL Normal 0.2 - 1.0 [facility] Comment on above: Performed By: #### UAMIC #### [facility] [address] [place] [address] Dr. Will Stroud WBC 0-2 Abnormal NONE SEEN [facility] Comment on above: Performed By: #### UAMIC #### [facility] [address] [place] [address] Dr. Will Stroud XR ESOPHAGUSon 11-18-2021 XR [...] RAHUL DOVE Date: 2021-11-18 12:29 Normal [facility] BN SPINE, LUMBOSACRAL; MIN 4 VIEWSon 05-04-2021 BN SPINE, LUMBOSACRAL; MIN 4 VIEWS Patient Name: NANCY BILLINGSLEY STUDY: SPINE, LUMBOSACRAL MIN 4 VIEWS INDICATION: AP/LAT FLEX & EXT. COMPARISON: October 25, 2017 ACCESSION NUMBER(S): [id number] ORDERING CLINICIAN: IAN DIAZ FINDINGS: L4-5 laminectomy and posterior fusion with pedicle screws at L5-S1. Hardware satisfactory. Alignment unchanged with anterolisthesis L5 on S1. No pathologic motion seen. IMPRESSION: Status post lower lumbar laminectomy with L5-S1 posterior fusion, unchanged in appearance without evidence of complication. Electronically signed by: KARIN AGARWAL MD Normal [facility] No Panel Informationon 05-04 Please click on the link to view the study images Normal [facility] Work Phone: Office Visiton 05-04-2021 Follow-up visit Diagnoses/Problems Lumbar radiculopathy (724.4) (M54.16) Orders Low back pain, Lumbar radiculopathy Start: Meloxicam 15 MG Oral Tablet; TAKE 1 TABLET DAILY NEEDED Low back pain, Lumbar radiculopathy, Neck pain Physical Therapy - General Referral Evaluation and Treatment Evaluate AND Treat Status: Hold For - Scheduling,Retrospective Authorization Requested for: 04May2021 Low back pain, Neck pain Start: methylPREDNISolone [...] is getting better perhaps we can watch [id number]. If she is not getting better, I [...] is getting better perhaps we can watch [id number]. If she is not getting better, I [...] physical therapy (more content not included)... Normal [facility] SPINE, LUMBOSACRAL; MIN 4 EWSon 10-25-2017 SPINE, LUMBOSACRAL; MIN 4 VIEWS Name: NANCY BILLINGSLEY STUDY:Lumbar spine dated 10/25/2017. INDICATION:Pain. COMPARISON:Radiographs dated 12/30/2014. ORDERING CLINICIAN:IAN DIAZ TECHNIQUE:AP, lateral, lateral flexion, and lateral extension radiographs ofthe lumbar spine. FINDINGS:There are 5 lumbar type vertebral bodies. There is grade 1anterolisthesis of L5 on S1. It is similar between flexion,extension, and neutral. There is L4-5 pedicle screws with bridgingrods and laminectomy change. No distinct hardware complication isevident. Uhsc-pa-sedzqali multilevel degenerative changes seen of thevisualized spine. IMPRESSION:1. Grade 1 anterolisthesis of L 5 on S 1.2. Surgical and degenerative changes discussed above.Electronically signed by: ROSALBA JACOBO MD Normal [facility] Vital Signs Date Time Vital Sign Value Performing Clinician Facility 05-05-2024 [id number] Blood Pressure Location Wiliam WILL [facility] 05-05-2024 10:14-0400 Body temperature 98.6 [degF] Wiliam WALLACE [facility] 05-05-2024 10:14-0400 Diastolic blood pressure 85 mm[Hg] Wiliam WALLACE [facility] 05-05-2024 10:14-0400 Heart rate 87 /min Wiliam WALLACE [facility] 05-05-2024 10:14-0400 Respiratory rate 16 /min Wiliam WALLACE [facility] 05-05-2024 10:14-0400 Systolic blood pressure 138 mm[Hg] Wiliam WALLACE [facility] 12-26-2022 12:30-0500 Body height 154.94 cm Samantha Toro Other [facility] Other 12-26-2022 12:30-0500 Body mass index (BMI) [Ratio] 30.23 kg/m2 Samantha Toro Other [facility] Other 12-26-2022 12:30-0500 Body weight 72.58 kg Samantha Toro Other [facility] Other 12-26-2022 12:30-0500 Diastolic blood pressure 100 mm[Hg] Samantha Toro Other [facility] Other 12-26-2022 12:30-0500 SaO2% (BldA) [Mass fraction] 97 % Samantha Toro Other [facility] Other 12-26-2022 12:30-0500 Systolic blood pressure 142 mm[Hg] Samantha Toro Other [facility] Other 03-14-2022 13:01-0400 Blood Pressure Location Deyanira Chan [facility] 03-14-2022 13:01-0400 Body temperature 98.06 [degF] Deyanira Chan [facility] 03-14-2022 13:01-0400 Diastolic blood pressure 76 mm[Hg] Deyanira Chan [facility] 03-14-2022 13:01-0400 Heart rate 87 /min Deyanira Chan [facility] 03-14-2022 13:01-0400 SaO2% (BldA) [Mass fraction] 99 % Deyanira Chan [facility] 03-14-2022 13:01-0400 Systolic blood pressure 136 mm[Hg] Deyanira Chan [facility] Encounters Encounter Date Encounter Type Care Provider Facility Start: 10-14-2024 End: 10-14-2024 Bamboo flowsheet Cony Hema DO Work Phone: [facility] Start: 10-14-2024 End: 10-14-2024 Bamboo flowsheet Cnoy Hema DO Work Phone: [facility] Start: 07-28-2024 End: 07-28-2024 ambulatory CONY HEMA Not Available Start: 07-01-2024 End: 07-01-2024 ambulatory Cony Hema [facility] Work Phone: Start: 07-01-2024 End: 07-01-2024 Departed Referred DO Cony Garrido Work Phone: [facility] [place] [facility] Start: 07-01-2024 End: 07-01-2024 ambulatory CONY CALVILLOO Not Available Start: 06-18-2024 End: 06-18-2024 ambulatory RALPH ANDRIA Not Available Start: 06-10-2024 End: 06-10-2024 ambulatory RALPH ANDRIA Not Available Start: 05-19-2024 End: 05-19-2024 ambulatory Wiliam WALLACE Facility:CD:[id number] Start: 05-05-2024 End: 05-05-2024 ambulatory Wiliamsean WALLACE Facility:[facility] [place] Start: 05-05-2024 End: 05-05-2024 Patient encounter procedure Wiliam R WALLACE [facility] Start: 04-07-2024 End: 04-07-2024 ambulatory RALPH ANDRIA Not Available Start: 03-21-2024 ambulatory Wiliam WALLACE Facility :[facility] [place] Start: 03-18-2024 End: 03-18-2024 ambulatory RALPH ANDRIA Not Available Start: 12-26-2022 End: 12-26-2022 ambulatory Samantha Toro Other [facility] Other Start: 12-26-2022 Office outpatient visit 15 minutes Samantha Toro [facility] Start: 08-17-2022 End: 08-17-2022 Patient encounter procedure Trudi MCCANN [facility] Start: 07-11-2022 Chart Update Cristopher lawrence Work Phone: [facility] Work Phone: Start: 04-11-2022 End: 04-12-[address] CHERELLE HULL Facility:[facility] Start: 03-14-2022 End: 03-14-2022 Patient encounter procedure Deyanira Chan [facility] Start: 11-18-2021 End: 11-19-[address] HEATHER SCHROEDER Facility:[facility] Start: 05-04-2021 Office outpatient visit 15 minutes Cristopher Chang Work Phone: [facility] Work Phone: Start: 10-25-2017 Ambulatory Ian Diaz Fac ility:[facility] Medical Building Procedures Date Procedure Procedure Detail Performing Clinician Start: 02-20-2022 Colonoscopy Deyanira Chan Comment on above: rectal polyp x1, small Ih Start: 02-20-2022 Esophagogastroduodenoscopy Deyanira corbett Comment on above: esophageal dilation, schatki's ring Bladder Surgery Cristopher Cruz all Work Phone: Bunion Correct Resec t Joint [employer] First Toe Implant Cristopher Chang Work Phone: Excision of bunion Wiliam HERNANDEZ Hysterectomy Cristopher Chang Work Phone: Hysterectomy Wiliam WALLACE Knee Surgery Cristopher Chang Work Phone: Repair of stress inc ontinence by suprapubic sling Wiliam WALLACE Spinal arthrodesis Wiliam HERNANDEZ Viral screening Samantha Toro Other Plan of Treatment Date Care Activity Detail Author Start: 10-27-2025 End: 10-27-2025 Patient encounter procedure 10/27/2025 2:00 PM EST Office Visit [facility] [address] [place] [address] Cony Garrido, [address] [place] [address] [facility] Start: 01-14-2025 End: 01-14-2025 Patient encounter procedure 01/14/2025 2:10 PM EST Office Visit [facility] [address] [place] [id number] Cony Garrido, DO [address] [place] [place] [address] [facility] Start: 07-20-2024 Influenza vaccination Influenza Vaccine (#1) [facility] Start: 07-01-2024 [facility] Start: 2021 Pneumococcal Vaccine: 65+ Years (1 of 1 - PCV) Pneumococcal Vaccine: 65+ Years (1 of 1 - PCV) [facility] Start: 1996 Screening for malignant neoplasm of breast Mammogram [facility] Start: 1955 Screening for malignant neoplasm of colon [facility] Immunizations Immunization Date Immunization Notes Care Provider Fa cility 11-25-2021 SARS-CoV-2 (COVID-19 ) mRNA BNT-162b2 vax [employer] [facility] 01-26-2021 SARS-CoV-2 (COVID-19 ) Ad26 vaccine, recombinant [employer] [facility] NEGATED: Highlighted row has not occurred!01-11-2022 influenza virus vaccine, unspecified formulation Deyanira Chan [facility] Payers Date Payer Category Payer Self-pay [id number] 2021 Private Health Insurance [employer] [id number] 1959 Unknown [id number] 1955 Unknown [id number] [id number] .2.593 1955 Unknown [id number] [id number] .2.593 1956 Unknown [id number] [id number] .2.1259 1956 Unknown [id number] [id number] .2.1259 1956 Unknown [id number] [id number] .2.1259 1956 Unknown [id number] [id number] .2.1259 1956 Unknown [id number] [id number] .2.1259 1956 Unknown [id number] [id number] .2.1259 1956 Unknown [id number] [id number] .2.727 1956 Unknown [id number] [id number] .2.727 Unknown [id number] Unknown [facility] Unknown [id number] [id number] .2.531 Social History Date Type Detail Facility Tobacco smoking status WVIS Unknown if ever smoked [facility] Start: 1955 Sex Assigned At Female [facility] Never a smoker Never a smoker [facility] Work Phone: Start: 08-03-2017 End: 03-14-2022 Tobacco smoking status Never smoked tobacco (finding) [facility] Tobacco smoking status Never [facility] Sex Assigned At Female [facility] Tobacco smoking status NHIS Tobacco smoking consumption unknown [facility] Start: 1955 Sex assigned at Not on file [facility] Goals Date Patient Goal Desired Activity /State Functional Status Date Assessment Result Facility 05-05-2024 Functional Status N/A [facility] Clinical Notes 03-14-2022 to 05-05-2024 Note Date [...] including vitamins, herbs, eye drops, creams, and trrv-ogd-ephuloa medicines. Any problems you or family members [...] provider tells you to take them. Taking udyp-wxj-zpbzyxp medicines, vitamins, herbs, and supplements. Tests You [...] Follow these instructions at home: Medicines Take qnvp-vxd-nbamxbg and prescription medicines only as told by [...] provider. Document Revised: 07/19/2022 Document Reviewed: 06/17/2021 [employer] Patient Education 2022 [employer]. Follow Up Care 03/24/2024 15:37:07 With:Viv WALLACE MDrick R, URL Address: [facility] [address] [place] [address]- When: Unknown [facility] [place] 05-05-2024 Note Chief Complaint referral for incontinence HPI Staff Referral for incontinence by Dr. Garrido. Pt states that she had a bladder sling procedure done about 15 years at the . She states that the incontinence is causing [...] sling 15 yrs ago at [facility]. S/p hysterectomy. 1. Overflow incontinence (N39.490: Overflow incontinence) S/p bladder sling and prolapse repair 15 yrs ago at [facility] by Dr. Jimenez due to bladder prolapse. Likely had large piece of mesh placed. Pt was dry after sling. Leaking starting 5 yr ago. Leaking worsens with increased fluid intake and coffee. Tried cream through Dr. Toro, does not recall cream. [place] it was washed away each time she [...] cream for #3. -Retrieve op note from [facility]. -Will schedule cysto with pelvic exam. The risks and benefits for cystoscopy have been discussed. The risks include bleeding, infection, and irritation of the bladder and urinary channel, among others. The patient, after being informed of procedural details and after questions have been answered, wishes to proceed. Full informed consent has been obtained. Will order Local anesthesia. Prophylactic abx sent to [facility]. 2. Incomplete bladder emptying (R33.9: Retention of [...] past. -Start Clobetasol bid. Rx sent to [facility] [place]. 4. Dysuria (R30.0: Dysuria) Also has burning with urination which would not be caused by external irritation. Follow-up With When Contact Information Wiliam WALLACE MD, URL [facility] [address], [place] [address]- Additional Instructions: schedule cysto with pelvic exam Patient Education Cystoscopy I, Nasra Tiwari, personally scribed for Dr. Will og (more content not included)... [facility] Comment on above: Result Comment: Elec [...] including vitamins, herbs, eye drops, creams, and lvcn-sxz-shxfdyw medicines. ? Any problems you or family [...] tells you to take them. ? Taking vofq-vwn-cziuvrf medicines, vitamins, herbs, and supplements. Tests You [...] these instructions at home: Medicines ? Take kqsc-olz-lcpeytg and prescription medicines only as told by [...] the department th (more content not included)... [facility] 12-26-2022 Evaluation note Encounter Date Diagnosis Assessment Notes Dec, Vulvovaginitis (ICD-10 - N76.0) Explained prescription cream should help with irritation and itching. Discussed various brands of incontinence pads. Offered medication to help with urinary incontinence which she did not declines at this time. Also offered a referral for SECURITY NURSE or urology for chronic incontinence which she declines as well. [facility] Other 04-26-2022 Hospital Discharge instructions Patient Education [...] Follow these instructions at home: Medicines Take xpdi-stj-hlozsvx and prescription medicines only as told by your health care provider. If you were prescribed an antibiotic medicine, take it as told by your health care provider. Do notstop taking the antibiotic even if you start to feel better. Eating and drinking Follow any diet changes as told by your health care provider. Work with a diet and nutritional services host (dietitian) to create an eating plan that [...] 11/02/2001 Document Revised: 03/31/2020 Document Reviewed: 03/31/2020 [employer] Patient Education 2019 [employer]. Follow Up Care 02/23/2022 16:00:41 With:Deyanira Chan CNP Address: When:3 months [facility] Evaluation + Plan note Future Appointments Appointment Date:06/13/2022 10:00:00 AM Scheduled Provider:Deyanira Chan CNP Location:[facility] Appointment Type:[facility] Follow Up Future Scheduled Tests Radiology* XR Esophagus 03/14/22 [facility] Evaluation noteNo assessment information available [facility] Work Phone: History general Narrative - Reported* [...] surgery 08/2017 Hospitalization History SEE SURGICAL HX [facility] Other Hospital course Narrative No data available for this section [facility] Hospital Discharge instructions No data available for this section [facility] Progress note No data available for this section [facility] Summary Purpose Family History Relationship Condition Age at Onset Recorded Date/T breonna father Unknown mother Unknown Malignant neoplasm Unknown sister Malignant neoplasm Unknown Advance Directives Advance Directive Response Recorded Date/ Time Advance [...] is getting better perhaps we can watch jqzz-rgm-jqo. If she is not getting better, I will likely need to get an MRI so that we can evaluate further. Additional Source Comments INFORMATION SOURCE (unrecogn ized section and content) DATE CREATED AUTHOR 05/14/2018 [facility] DATE CREATED AUTHOR AUTHOR'S ORGANIZ ATION 05/06/2021 [employer] DATE CREATED AUTHOR AUTHOR'S ORGANIZ ATION 05/10/2021 [facility] DATE CREATED AUTHOR AUTHOR'S ORGANIZ ATION 04/13/2022 [facility] [facility] DATE CREATED AUTHOR AUTHOR'S ORGANIZ ATION 07/11/2024 [facility] DATE CREATED AUTHOR AUTHOR'S ORGANIZ ATION 07/29/2024 [facility] DATE CREATED AUTHOR AUTHOR'S ORGANIZ ATION 08/30/2024 [facility] Care Team (unrecognized sect ion and content) [...] BE BASED ON THE PRIMARY CLINICAL RECORDS. [facility] [employer] [facility]. provides no warranty or guarantee of the accuracy or completeness of information in this document.
== END 2024-10-14 19:38 | disposition home or self-care (01) ==
LOC: LAB 19:37
PROVIDERS: PCP Family Medicine; Visit Provider Obstetrics & Gynecology
DX: Z01.419 Encounter for gynecological examination (general) (routine) without abnormal findings (principal)
CPT/HCPCS: 88175

== ENCOUNTER 2025-01-14 08:54 | Outpatient (OUT) | payer OTHER, SELFPAY ==
--- NOTE | 2025-01-14 09:00 | MM_ITS ---
Patient Name: SEAN GAINES MR#: [id number] : 1955 Exam Date: 01/14/2025 Ordering Doctor: DR Yon Garrido . RADIOLOGY REPORT PROCEDURE: MM TOMOSYNTHESIS SCREENING BI COMPARISON: MG MAMM SCREEN HOLLY W CAD, 09/18/2019. INDICATIONS: Screening Calculator Name NCI Breast Cancer Risk Assessment Tool 5 Year Breast Cancer Risk 2.60% Lifetime Breast Cancer Risk 8.30% Personal Breast Cancer No Personal Ovarian Cancer No Treatments None Family Cancers Mother with mesothelioma cancer at age 59; Sister with bladder cancer at age ~50. LOCATION: [facility] BREAST COMPOSITION: The breasts are heterogeneously dense,which may obscure small masses. FINDINGS: RIGHT BREAST: No significant suspicious finding. LEFT BREAST: FOCAL ASYMMETRY 8 cm from the nipple medially at the 3 o'clock position in the right breast measuring approximately 6 millimeters in greatest dimension. This is new when compared to the prior exam. DIAGNOSTIC CATEGORY 0--INCOMPLETE: NEED ADDITIONAL IMAGING EVALUATION. RECOMMENDATIONS: ADDITIONAL MAMMOGRAPHIC VIEWS REQUIRED: RIGHT BREAST - spot compressed and craniocaudal ULTRASOUND: RIGHT BREAST PLEASE NOTE: A NORMAL MAMMOGRAM DOES NOT EXCLUDE THE POSSIBILITY OF BREAST CANCER. A CLINICALLY SUSPICIOUS PALPABLE LUMP SHOULD BE BIOPSIED. Dictated by: Kayden Ulrich MD on 01/14/2025 at 11:52 Approved by: Kayden Ulrich MD on 01/14/2025 at 11:54
--- OUTSIDE RECORDS SUMMARY | 2025-01-14 09:13 | XMS_ITS | CCD ---
Author Organization [facility] Inform ion [facility] Care Team Providers Care Sludge Filtration Attendant Name Role Phone Ian Diaz Unavailable Cristopher Arevalo Unavailable Cristopher Augustin Unavailable Cristopher Augustin Unavailable Unavailable Unavailable CRISTOPHER CHANG Primary Care Physician ALEXANDRE, DR ROMERO Attending Unavailable TIMWINNIE, DR ROMERO Consulting Unavailable AKASH, DR SAMANTHA Martinez Primary Care Unavailable TIMWINNIE, DR ROMERO Admitting Unavailable MICHAEL, DR YOST Referring Unavailable MCRAE HELENA, DR RAHUL Espinoza Consulting Unavailable DELLA, DR VILLARREAL Consulting Unavailable DELLA, DR VILLARREAL Admitting Unavailable AKASH, DR SAMANTHA Martinez Primary Care Unavailable DELLA, DR VILLARREAL Attending Unavailable Samantha Toro Unavailable DO Cony Garrido Attending Provider Cony Garrido Attending Unavailable Cony Garrido Admitting Unavailable Wiliam WALLACE Attending Unavailable RALPH AYERS Referring Unavailable Wiliam WALLACE Attending Unavailable Unavailable Primary Care Provider UnavailRALPH Wesley Attending Unavailable RALPH AYERS Attending Unavailable RALPH AYERS Attending Unavailable RALPH AYERS Attending Unavailable CONY GARRIDO Attending Unavailable CONY GARRIDO Attending Unavailable CONY GARRIDO Attending Unavailable Unavailable Unavailable Unavailable Allergies Allergy Classification Reported Allergen(s) Allergy Type Date of Onset Reaction(s) Facility (1 source) No Known Medication Allergies; Translations: [No Known Medication Allergies] Propensity to adverse reactions (disorder) [facility] Repository Medications Current Medications Medication Drug Class(es) Dates Sig (Normalized) Sig (Original) acetaminophen 325 mg / HYDROcodone bitartrate 5 mg oral tablet (2 sources) Opioid Agonist Start: 08-20-2017 take 1 tablet by mouth every four to six hours Hydrocodone-Aceta minophen ([place]) 5-325 mg tablet Active 1 - 2 TAB PO EVERY 4-6 HOURS 40 August 20, 2017 10:07am ARIPiprazole 2 mg oral tablet (11 sources) Atypical Antipsychotic Start: 01-11-2022 take 1 tablet by mouth at bedtime ARIPiprazole (Abilify) 2 MG tablet Take 2 mg by mouth at bedtime 02/22/2024 Active clobetasol propionate 0.5 mg/ml topical cream (6 sources) Corticosteroid Start: 07-28-2024 End: 08-27-2024 clobetasol (Temovate) 0.05 % cream Indications: Vaginal itching Apply 1 application topically every other day 45 g 3 07/28/2024 08/27/2024 Active Start: 07-01-2024 End: 07-31-2024 clobetasol (Temovate) 0.05 % cream Indications: Vaginal lesion Apply 1 application topically Daily Apply to affected area daily in the morning 45 g 07/01/2024 07/28/2024 Discontinued (Reorder) Start: 05-05-2024 clobetasol pro pionate 0.05% top oint 1 wu, Topical, BID, [...] Start: 09-23-2019 DULoxetine 60 mg oral capsule (16 sources) Serotonin and Norepinephrine Reuptake Inhibitor Start: 02-17-2022 take 60 mg by mouth once daily duloxetine 60 mg, Oral, Daily, Refills(s) 0, Depression Start Date: 02/17/22 Status: Ordered Start: 08-20-2017 take 1 capsule by [facility] once daily Duloxetine Active 1 CAP Oral [...] 0 Refills: 0 Ordered: 12-Feb-2014 DO Active estradiol 0.1 mg/ml vaginal cream (3 sources) Estrogen Start: 10-14-2024 End: 10-14-2025 estradiol (Estrace) 0.1 MG/GM vaginal cream Indications: Dyspareunia in female Insert 2 g into the vagina at bedtime Once a day for one month and then at bedtime twice a week. 42.5 g 11 10/14/2024 10/14/2025 Active estrogens, conjugated (penitentiary) 0.625 mg/ml vaginal cream (3 sources) Estrogen Start: 07-03-2024 End: 08-02-2024 Estrogens Conjugated (Premarin) 0.625 MG/GM cream Indications: Vaginal lesion Insert 0.5 g into the vagina Daily Insert 1/2 applicator at bedtime nightly for 2 weeks then twice a week thereafter 1 g 3 07/03/2024 08/02/2024 Active etodolac 500 mg oral tablet (11 sources) Nonsteroidal Anti-inflammatory Drug Start: 01-11-2022 take [...] 11-28-2019 Kenalog -40 mg Nov, 40 mg valACYclovir 500 mg oral tablet (3 sources) Herpesvirus Nucleoside Analog DNA Polymerase Inhibitor, Herpes Simplex Virus Nucleoside Analog DNA Polymerase Inhibitor, Herpes Zoster Virus Nucleoside Analog DNA Polymerase Inhibitor Start: 07-01-2024 End: 07-31-2024 valACYclovir (Valtrex) 500 MG tablet Indications: Vaginal lesion Take 1 tablet (500 mg) by mouth Daily Take 2 tablets by mouth for 10 days, then once a day after that. 37 tablet 5 07/01/2024 07/31/2024 Active Completed/Discontinued Medications Medication Drug Class(es) Dates Sig [...] # 2 tab(s), Refills(s) 0, Pharmacy: [id number], 158, cm, 05/05/24 10:21:00 EDT, Height/Length Dosing, 70, kg, 05/05/24 10:21:00 EDT, Weight Dosing Start Date: 05/05/24 Status: Ordered cyclobenzaprine (15 sources) Muscle Relaxant Start: 02-17-2022 take 3 tablets by mouth once daily at bedtime cyclobenzaprine 10 mg, Oral, Once a day (at bedtime), takes 3 tabs, Refills(s) 0, Spasm Start Date: 02/17/22 Status: Ordered Start: 08-20-2017 take 3 tablets by mo uth at bedtime Cyclobenzaprine Active 3 TAB Oral Bedtime August 20, 2017 7:28am take 1 tablet by rudolph th at bedtime cyclobenzaprine (Flexeril) 10 MG tablet [...] 04-11-2022 Chronic Other aftercare (1 source) Other residential (current) drug therapy; Translations: [OTH [facility] CURRENT DRUG THERAPY] Onset: 04-13-2022 Episodic Other aftercare (2 sources) Surgical follow-up; Translations: [Encounter for follow-up examination after completed treatment for conditions other than malignant neoplasm] 10-14-2024 Episodic Other congenital anomalies (2 sources) Herniated urinary bladder; Translations: [Bladder prolapse] Chronic Other female genital disorders (2 sources) Pain in female genitalia on intercourse; Translations: [Unspecified dyspareunia] 10-14-2024 Chronic Other female genital disorders (1 source) Noninflammatory disorder of the vagina; Translations: [Other specified noninflammatory disorders of vagina] Onset: 05-05-2024 Episodic Other gastrointestinal disorders (4 sources) Dysphagia; Translations: [Dysphagia, unspecified] Onset: 03-14-2022 Episodic Other screening for suspected conditions (not mental disorders or infectious disease) (2 sources) Patient encounter status; Translations: [Encounter for screening mammogram for malignant neoplasm of breast] 10-14-2024 Episodic Other skin disorders (1 source) Mass [...] Problem Classification Problem Date Documented Date Episodic/Chronic Administrative/social admission (2 sources) Follow-up status; Translations: [Person consulting for explanation of examination or test findings] 07-28-2024 Episodic Esophageal disorders (1 source) Esophageal disorders; Translations: [Gastroesophageal reflux disease with esophagitis without hemorrhage] Other female genital disorders (7 sources) Burning sensation of vagina; Translations: [Other specified conditions associated with female genital organs and menstrual cycle] Onset: 06-18-2024 06-18-2024 Episodic Other female genital disorders (9 sources) Vaginal lesion; Translations: [Other specified noninflammatory disorders of vagina] Onset: 06-18-2024 06-18-2024 Episodic Other inflammatory condition of skin (3 sources) Pruritus of vagina; Translations: [Other specified noninflammatory disorders of vagina] 05-05-2024 Episodic Unclassified (3 sources) Autoimmune (qualifier value) 02-18-2016 Results Test Name Value Interpretation Reference Range Facility IGP,APTIMA HPV,AGE GDLNon AGE GDLN ACOG TESTING Note . [facility] Comment on above: TESTS RESULT FLAG UNITS REF RANGE LAB Clinician Provided Cytology Information Source.............Vagina No. of containers..01 ThinPrep Vial Age Algo ACOG [place]... Note 01 <21 or >65 or no age provided FLAG LEGEND: L-Low Normal,H-High Normal,LL-Alert Low,HH-Alert High <-Panic Low,>-Panic High,A-Abnormal,AA-Critical Abnormal Performed at: 01 =[facility] [place] [address] Fabiana Epstein MD, PAP IG (IMAGE GUIDED) Note . [facility] Comment on above: TESTS RESULT FLAG UNITS REF RANGE LAB DIAGNOSIS: 02 NEGATIVE FOR INTRAEPITHELIAL LESION OR MALIGNANCY. CELLULAR CHANGES ASSOCIATED WITH ATROPHY ARE PRESENT. Specimen adequacy: 02 Satisfactory for evaluation. Performed by: Lety Melo, Human Resources Compliance Manager ([facility]) . 02 Note: Note 03 The Pap smear is a screening test designed to aid in the detection of premalignant and malignant conditions of the uterine cervix. It is not a diagnostic procedure and should not be used as the sole means of detecting cervical cancer. Both false-positive and false-negative reports do occur. Test Methodology: Note 03 This liquid based ThinPrep(R) pap test was screened with the use of an image guided system. FLAG LEGEND: L-Low Normal,H-High Normal,LL-Alert Low,HH-Alert High <-Panic Low,>-Panic High,A-Abnormal,AA-Critical Abnormal Performed at: 02 [facility] [place] [address] Alexis Fuentes PhD, 03 WB [facility] [address] [address] Fabiana Epstein MD, Performed at: =G - [facility] [id number] Electric Lineman: Fabiana Epstein MD, Phone: [phone] Performed at: [facility], [place] [id number] Electric Lineman: Alexis Fuentes PhD, Phone: [phone] [facility] Pathology Request for Lab Co rpon 07-01-2024 Pathology Request for Lab Todd Normal [facility] Comment on above: Order Comment: PATHOLOGY GUN CLUB MANAGER SPECIMEN Result Comment: See report. Scanned copy available in EMR. PERFORMED BY: [place] [address] PATHOLOGIST FINAL INSPECTOR AND TESTER CHELSEA CALL M.D. Performed By: #### P ATH TO [facility] #### [address] Auth for Release of Medical Recordson 05-06-2024 Auth for Release of Medical Records [id number] Normal [facility] Consent for Procedure/Surger yon 05-06-2024 Consent for Procedure/Surger y [id number]#[id number] Normal [facility] Formson 05-06-2024 Forms [id number]#[id number] Normal [facility] Physician Referralon 024 Physician Referral [id number]#[id number] Normal [facility] Ambulatory Visit Summaryon 0 05-05-2024 Ambulatory Visit Summary YANDIPTI FITZGERALDYCJuan Espinoza :1955 Visit Date:05/05/2024 Ambulatory Visit Instructions [...] When: Where: [facility] [address] [place] [address]- Medications What How Much When Instructions Unchanged [...] for choosing us for your care. Normal [facility] C3 and C4 COMPLEMENTon 04-12 Complement C3, Serum 144 mg/dL Normal 82-167 [facility] Comment on above: Performed By: #### CSUITE #### [facility] [address], [place] [address] Dr. Will Stroud Complement C4, Serum 31 mg/dL Normal 12-38 [facility] Comment on above: Performed By: #### CSUITE #### [facility] [address] [address] [address] Will Stroud COMPLEMENT TOTAL (CH50)on Complement, Total (CH50) >60 Normal >41 [facility] Comment on above: Result Comment: Age [...] values. Performed By: #### C H50T #### [facility] [address] [place] [address] Dr. Will Stroud CBC AUTO DIFFon 04-11-2022 BASO # 0.0 103/ul Normal 0.0-0.1 [facility] Comment on above: Performed By: #### CBC #### [facility] [address] [place] [address] Dr. Will Stroud Basophils/100 WBC (Bld) 0.9 % Normal 0.2-2.0 [facility] Comment on above: Performed By: #### CBC #### [facility] [address] [place] [address] Dr. Will Stroud EO # 0.1 103/ul Normal 0.0-0.7 [facility] Comment on above: Performed By: #### CBC #### [facility] [address] [place] [address] Dr. Will Stroud Eosinophils/100 WBC (Bld) 1.7 % Normal 0.9-7.0 [facility] Comment on above: Performed By: #### CBC #### [facility] [address] [place] [address] Dr. Will Stroud Erythrocyte distribution width (RBC) [Ratio] 12.4 % Normal 11.0-15.0 [facility] Comment on above: Performed By: #### CBC #### [facility] [address] [place] [address] Dr. Will Stroud Hematocrit (Bld) [Volume fraction] 41.3 % Normal 36.0-48.0 [facility] Comment on above: Performed By: #### CBC #### [facility] [address] [place] [address] Dr. Will Stroud Hemoglobin (Bld) [Mass/Vol] 13.5 g/dL Normal 12.0-16.0 [facility] Comment on above: Performed By: #### CBC #### [facility] [address] [place] [address] Dr. Will Stroud IG # 0.00 10e3/ul Normal 0.00-0.03 [facility] Comment on above: Performed By: #### CBC #### [facility] [address] [place] [address] Dr. Will Stroud IG % 0.0 % Normal 0.0-0.5 [facility] Comment on above: Performed By: #### CBC #### [facility] [address] [place] [address] Dr. Will Stroud LYMPH # 1.3 103/ul Normal 1.2-3.8 [facility] Comment on above: Performed By: #### CBC #### [facility] [address] [place] [address] Dr. Will Stroud Lymphocytes/100 WBC (Bld) 29.6 % Normal 20.5-60.0 [facility] Comment on above: Performed By: #### CBC #### [facility] [address] [place] [address] Dr. Will Stroud MANUAL DIFF REQ NO Normal [facility] Comment on above: Performed By: #### CBC #### [facility] [address] [place] [address] Dr. Will Stroud MCH (RBC) [Entitic mass] 31.1 pg Normal 26.7-34.0 [facility] Comment on above: Performed By: #### CBC #### [facility] [address] [place] [address] Dr. Will Stroud MCHC (RBC) [Mass/Vol] 32.7 g/dL Normal 29.9-35.2 [facility] Comment on above: Performed By: #### CBC #### [facility] [address] [place] [address] Dr. Will Stroud MCV (RBC) [Entitic vol] 95.2 fL Normal 81.0-99.0 [facility] Comment on above: Performed By: #### CBC #### [facility] [address] [place] [address] Dr. Will Stroud MONO # 0.5 103/ul Normal 0.3-0.8 [facility] Comment on above: Performed By: #### CBC #### [facility] [address] [place] [address] Dr. Will Stroud Monocytes/100 WBC (Bld) 11.4 % Normal 1.7-12.0 [facility] Comment on above: Performed By: #### CBC #### [facility] [address] [place] [address] Dr. Will Stroud NEUT # 2.4 103/ul Normal 1.4-6.5 [facility] Comment on above: Performed By: #### CBC #### [facility] [address] [place] [address] Dr. Will Stroud Neutrophils/100 WBC (Bld) 56.4 % Normal 43.0-75.0 [facility] Comment on above: Performed By: #### CBC #### [facility] [address] [place] [address] Dr. Will Stroud Platelet mean volume (Bld) [Entitic vol] 8.6 fL Critically low 9.5-13.5 [facility] Comment on above: Performed By: #### CBC #### [facility] [address] [place] [address] Dr. Will Stroud PLT 237 103/ul Normal 150-450 [facility] Comment on above: Performed By: #### CBC #### [facility] [address] [place] [address] Dr. Will Stroud RBC 4.34 106/ul Normal 4.20-5.40 [facility] Comment on above: Performed By: #### CBC #### [facility] [address] [place] [address] Dr. Will Stroud WBC 4.2 103/ul Normal 4.0-11.0 [facility] Comment on above: Performed By: #### CBC #### [facility] [address] [place] [address] Dr. Will Stroud PROF 14(COMP METB)on 022 Albumin [Mass/Vol] 3.8 g/dL Normal 3.4-5.0 [facility] Comment on above: Performed By: #### CMP #### [facility] [address] [place] [address] Dr. Will Stroud Albumin/Globulin [Mass ratio] 1.0 {ratio} Normal [facility] Comment on above: Performed By: #### CMP #### [facility] [address] [place] [address] Dr. Will Stroud ALP [Catalytic activity/Vol] 110 U/L Normal 46-116 [facility] Comment on above: Performed By: #### CMP #### [facility] [address] [place] [address] Dr. Will Stroud ALT [Catalytic activity/Vol] 33 U/L Normal 14-59 [facility] Comment on above: Performed By: #### CMP #### [facility] [address] [place] [address] Dr. Will Stroud Anion gap [Moles/Vol] 11.8 mmol/L Normal [facility] Comment on above: Performed By: #### CMP #### [facility] [address] [place] [address] Dr. Will Stroud AST [Catalytic activity/Vol] 21 U/L Normal 15-37 [facility] Comment on above: Performed By: #### CMP #### [facility] [address] [place] [address] Dr. Will Stroud Bilirubin [Mass/Vol] 0.4 mg/dL Normal 0.2-1.0 [facility] Comment on above: Performed By: #### CMP #### [facility] [address] [place] [address] Dr. Will Stroud Calcium [Mass/Vol] 9.0 mg/dL Normal 8.5-10.1 [facility] Comment on above: Performed By: #### CMP #### [facility] [address] [place] [address] Dr. Will Stroud Chloride [Moles/Vol] 102 mmol/L Normal 98-107 [facility] Comment on above: Performed By: #### CMP #### [facility] [address] [place] [address] Dr. Will Stroud CO2 [Moles/Vol] 29.3 mmol/L Normal 21.0-32.0 [facility] Comment on above: Performed By: #### CMP #### [facility] [address] [address] [address] Will Stroud Creatinine [Mass/Vol] 0.86 mg/dL Normal 0.55-1.02 [facility] Comment on above: Performed By: #### CMP #### [facility] [address] [address] [address] Will Stroud EGFR-AF STATELESS >60 Normal >=60 [facility] Comment on above: Performed By: #### CMP #### [facility] [address] [address] [address] Will Stroud EGFR-NON AF STATELESS >60 Normal >=60 [facility] Comment on above: Performed By: #### CMP #### [facility] [address] [place] [address] Dr. Will Stroud Globulin (S) [Mass/Vol] 3.8 g/dL Normal [facility] Comment on above: Performed By: #### CMP #### [facility] [address] [place] [address] Dr. Will Stroud Glucose [Mass/Vol] 106 mg/dL Normal 74-106 [facility] Comment on above: Performed By: #### CMP #### [facility] [address] [place] [address] Dr. Will Stroud Potassium [Moles/Vol] 4.1 mmol/L Normal 3.5-5.1 [facility] Comment on above: Performed By: #### CMP #### [facility] [address] [place] [address] Dr. Will Stroud Protein [Mass/Vol] 7.6 g/dL Normal 6.4-8.2 [facility] Comment on above: Performed By: #### CMP #### [facility] [address] [place] [address] Dr. Will Stroud Sodium [Moles/Vol] 139 mmol/L Normal 136-145 [facility] Comment on above: Performed By: #### CMP #### [facility] [address] [place] [address] Dr. Will Stroud Urea nitrogen [Mass/Vol] 15.0 mg/dL Normal 7.0-18.0 [facility] Comment on above: Performed By: #### CMP #### [facility] [address] [place] [address] Dr. Will Stroud Urea nitrogen/Creatin ine [Mass ratio] 17.4 mg/mg Normal [facility] Comment on above: Performed By: #### CMP #### [facility] [address] [place] [address] Dr. Will Stroud [facility] SED [facility]ATE 6 mm/hr Normal <=30 [facility] Comment on above: Performed By: #### SEDR #### [facility] [address] [place] [address] Dr. Will Stroud UA RANDOM W/MICROSCOPICon BACTERIA NONE SEEN Normal NONE SEEN [facility] Comment on above: Performed By: #### UAMIC #### [facility] [address] [place] [address] Dr. Will Stroud Bilirubin Ql (U) Negative Normal NEGATIVE [facility] Comment on above: Performed By: #### UAMIC #### [facility] [address] [place] [address] Dr. Will Stroud CAST NONE SEEN Normal NONE SEEN [facility] Comment on above: Performed By: #### UAMIC #### [facility] [address] [place] [address] Dr. Will Stroud Clarity (U) CLEAR Normal CLEAR [facility] Comment on above: Performed By: #### UAMIC #### [facility] [address] [place] [address] Dr. Will Stroud Color (U) LT. YELLOW Normal YELLOW [facility] Comment on above: Performed By: #### UAMIC #### [facility] [address] [place] [address] Dr. Will Stroud Crystals LM Nom (Urine sed) NONE SEEN Normal NONE SEEN [facility] Comment on above: Performed By: #### UAMIC #### [facility] [address] [place], [place] [id number] Dr. Will Stroud Epithelial cells LM Ql (Urine sed) RARE Normal NONE SEEN /RARE [facility] Comment on above: Performed By: #### UAMIC #### [facility] [address] [place] [address] Dr. Will Stroud Glucose Ql (U) Negative Normal NEGATIVE [facility] Comment on above: Performed By: #### UAMIC #### [facility] [address] [place] [address] Dr. Will Stroud Hemoglobin Ql (U) Negative Normal NEGATIVE [facility] Comment on above: Performed By: #### UAMIC #### [facility] [address] [place] [address] Dr. Will Stroud Ketones Ql (U) Negative Normal NEGATIVE [facility] Comment on above: Performed By: #### UAMIC #### [facility] [address] [place] [address] Dr. Will Stroud LEUKOCYTES SMALL Abnormal NEGATIVE [facility] Comment on above: Performed By: #### UAMIC #### [facility] [address] [place] [address] Dr. Will Stroud MUCOUS NONE SEEN Normal NONE SEEN [facility] Comment on above: Performed By: #### UAMIC #### [facility] [address] [place] [address] Dr. Will Stroud Nitrite Ql (U) Negative Normal NEGATIVE [facility] Comment on above: Performed By: #### UAMIC #### [facility] [address] [place] [address] Dr. Will Stroud pH (U) 6.5 [pH] Normal 5-9 [facility] Comment on above: Performed By: #### UAMIC #### [facility] [address] [place] [address] Dr. Will Stroud RBC NONE SEEN Abnormal 0-2 [facility] Comment on above: Performed By: #### UAMIC #### [facility] [address] [place] [address] Dr. Will Stroud SPEC GRAVITY <=1.005 Abnormal 1.005-<=1.02 5 [facility] Comment on above: Performed By: #### UAMIC #### [facility] [address] [place] [address] Dr. Will Stroud UA PROTEIN Negative Normal NEGATIVE/ TRACE [facility] Comment on above: Performed By: #### UAMIC #### [facility] [address] [address] [address] Will Stroud Urobilinogen Qn (U) 0.2 {Fausto'U}/dL Normal 0.2 - 1.0 [facility] Comment on above: Performed By: #### UAMIC #### [facility] [address] [place] [address] Dr. Will Stroud WBC 0-2 Abnormal NONE SEEN [facility] Comment on above: Performed By: #### UAMIC #### [facility] [address] [place] [address] Dr. Will Stroud XR ESOPHAGUSon 11-18-2021 XR [...] RAHUL DOVE Date: 2021-11-18 12:29 Normal [facility] BN SPINE, LUMBOSACRAL; MIN 4 VIEWSon 05-04-2021 BN SPINE, LUMBOSACRAL; MIN 4 VIEWS Patient Name: NANCY BILLINGSLEY STUDY: SPINE, LUMBOSACRAL MIN 4 VIEWS INDICATION: AP/LAT FLEX & EXT. COMPARISON: October 25, 2017 ACCESSION NUMBER(S): [id number] ORDERING CLINICIAN: IAN DIAZ FINDINGS: L4-5 laminectomy and posterior fusion with pedicle screws at L5-S1. Hardware satisfactory. Alignment unchanged with anterolisthesis L5 on S1. No pathologic motion seen. IMPRESSION: Status post lower lumbar laminectomy with L5-S1 posterior fusion, unchanged in appearance without evidence of complication. Electronically signed by: KARIN AGARWAL MD Normal [facility] No Panel Informationon 05-04 Please click on the link to view the study images Normal -Orthopaedi [facility] [address] Work Phone: Office Visiton 05-04-2021 [...] is getting better perhaps we can watch [id number]. If she is not getting better, I [...] is getting better perhaps we can watch [id number]. If she is not getting better, I [...] physical therapy (more content not included)... Normal [employer] SPINE, LUMBOSACRAL; MIN 4 EWSon 10-25-2017 SPINE, [...] laminectomy change. No distinct hardware complication isevident. Bioa-al-ealqnpmo multilevel degenerative changes seen of thevisualized spine. IMPRESSION:1. Grade 1 anterolisthesis of L 5 on S 1.2. Surgical and degenerative changes discussed above.Electronically signed by: ROSALBA JACOBO MD Normal [facility] Vital Signs Date Time Vital Sign Value Performing Clinician Facility 10-14-2024 13:55-0500 Body mass index (BMI) [Ratio] 29.41 kg/m2 Cony Garrido DO Work Phone: [facility] 10-14-2024 13:55-0500 Body weight 72.94 kg Cony Hema DO Work Phone: [facility] 10-14-2024 13:55-0500 Diastolic blood pressure 70 mm[Hg] Cony Hema DO Work Phone: [facility] 10-14-2024 13:55-0500 Systolic blood pressure 110 mm[Hg] Cony Hema DO Work Phone: [facility] 07-28-2024 13:46-0400 Body mass index (BMI) [Ratio] 29.47 kg/m2 Cony Hema DO Work Phone: [facility] 07-28-2024 13:46-0400 Body weight 73.08 kg Cony Hema DO Work Phone: [facility] 07-28-2024 13:46-0400 Diastolic blood pressure 70 mm[Hg] Cony Hema DO Work Phone: [facility] 07-28-2024 13:46-0400 Systolic blood pressure 130 mm[Hg] Cony Hema DO Work Phone: [facility] 05-05-2024 10:14-0400 Blood Pressure Location Wiliamsean WALLACE [facility] 05-05-2024 10:14-0400 Body temperature 98.6 [degF] Wiliam WALLACE [facility] 05-05-2024 10:14-0400 Diastolic blood pressure 85 mm[Hg] Wiliamsean WALLACE [facility] 05-05-2024 10:14-0400 Heart rate 87 /min Wiliam WALLACE [facility] 05-05-2024 10:14-0400 Respiratory rate 16 /min Wiliamsean WALLACE [facility] 05-05-2024 10:14-0400 Systolic blood pressure 138 mm[Hg] Wiliam WALLACE [facility] 12-26-2022 12:30-0500 Body height 154.94 cm Samantha Toro Other [employer] Other 12-26-2022 12:30-0500 Body mass index (BMI) [Ratio] 30.23 kg/m2 Samantha Toro Other [employer] Other 12-26-2022 12:30-0500 Body weight 72.58 kg Samantha Toro Other [employer] Other 12-26-2022 12:30-0500 Diastolic blood pressure 100 mm[Hg] Samantha Toro Other [employer] Other 12-26-2022 12:30-0500 SaO2% (BldA) [Mass fraction] 97 % Samantha Toro Other [employer] Other 12-26-2022 12:30-0500 Systolic blood pressure 142 mm[Hg] Samantha Toro Other [employer] Other 03-14-2022 13:01-0400 Blood Pressure Location Deyanira Chan [facility] 03-14-2022 13:01-0400 Body temperature 98.06 [degF] Deyanira Chan [facility] 03-14-2022 13:01-0400 Diastolic blood pressure 76 mm[Hg] Deyanira Chan [facility] 04-26-2022 13:01-0400 Heart rate 87 /min Deyanira Chan [facility] 03-14-2022 13:01-0400 SaO2% (BldA) [Mass fraction] 99 % Deyanira Chan [facility] 03-14-2022 13:01-0400 Systolic blood pressure 136 mm[Hg] Deyanira Chan [facility] Encounters Encounter Date Encounter Type Care Provider Facility Start: 10-14-2024 End: 10-14-2024 Bamboo flowsheet Cony Hema DO Work Phone: [facility] Start: 10-14-2024 End: 10-26-2024 Bamboo flowsheet Cony Hema DO Work Phone: [facility] Start: 10-14-2024 End: 10-26-2024 Clinisync Result Encounter Cony Hema DO Work Phone: [facility] External Department Unsolicited Start: 10-14-2024 End: 10-14-2024 Patient encounter procedure Cony Hema DO Work Phone: [facility] Healthcare Work Phone: Start: 10-14-2024 End: 10-14-2024 Periodic preventive med est patient 65yrs& older Cony Hema DO Work Phone: [facility] Comment on above: Well woman exam with routine gynecological exam; Breast cancer screening by mammogram; Postoperative examination; Dyspareunia in female Start: 10-14-2024 End: 10-14-2024 ambulatory CONY HEMA Not Available Start: 07-28-2024 End: 07-28-2024 Bamboo flowsheet Cony Hema DO Work Phone: [facility] Start: 07-28-2024 End: 07-28-2024 Bamboo flowsheet Cony Hema DO Work Phone: [facility] Start: 07-28-2024 End: 07-28-2024 Office outpatient visit 15 minutes Cony Hema DO Work Phone: [facility] Comment on above: Encounter to discuss test results; Vaginal itching; Vaginal lesion Start: 07-28-2024 End: 07-28-2024 ambulatory CONY HEMA Not Available Start: 07-01-2024 End: 07-01-2024 ambulatory Cony Hema [facility] Work Phone: Start: 07-01-2024 End: 07-01-2024 Departed Referred DO Cony Hema Work Phone: [facility] Start: 07-01-2024 End: 07-01-2024 ambulatory CONY HEMA Not Available Start: 06-18-2024 End: 06-18-2024 ambulatory RALPH ANDRIA Not Available Start: 06-10-2024 End: 06-10-2024 ambulatory RALPH ANDRIA Not Available Start: 05-19-2024 End: 05-19-2024 ambulatory Wiliam WALLACE Facility:CD:[id number] Start: 05-05-2024 End: 05-05-2024 ambulatory Wiliam WALLACE Facility:[facility] [place] Start: 05-05-2024 End: 05-05-2024 Patient encounter procedure Wiliam WALLACE [facility] Start: 04-07-2024 End: 04-07-2024 ambulatory RALPH ANDRIA Not Available Start: 03-21-2024 ambulatory Wiliam WALLACE Facility :[facility] [place] Start: 03-18-2024 End: 03-18-2024 ambulatory RALPH ANDRIA Not Available Start: 12-26-2022 End: 12-26-2022 ambulatory Samantha Toro Other [employer] Other Start: 12-26-2022 Office outpatient vi sit 15 minutes [facility] Start: 08-17-2022 End: 08-17-2022 Patient encounter procedure Trudi MCCANN [facility] Start: 07-11-2022 Chart Update Cristopher lawrence Work Phone: [facility] Work Phone: Start: 04-11-2022 End: 04-12-[address] CHERELLE HULL Facility:[facility] Start: 03-14-2022 End: 03-14-2022 Patient encounter procedure Deyanira Chan [facility] Start: 11-18-2021 End: 11-19-[address] HEATHER SCHROEDER Facility:[facility] Start: 05-04-2021 Office outpatient vi sit 15 minutes Cristopher Chang Work Phone: [facility] Work Phone: Start: 10-25-2017 Ambulatory Ian Diaz Fac ility:[facility] Medical Building Procedures Date Procedure Procedure Detail Performing Clinician Start: 10-14-2024 IGP,APTIMA HPV,AGE GDLN Cony Hema DO Work Phone: Start: 02-20-2022 Colonoscopy Deyanira Chan Comment on above: rectal polyp x1, small Ih Start: 02-20-2022 Esophagogastroduodenoscopy Deyanira corbett Comment on above: esophageal dilation, schatki's ring Bladder Surgery Cristopher carl Work Phone: Bunion Correct Resec t Joint Acumed First Toe Implant Cristopher Chang Work Phone: Excision of bunion Wiliam Barth ATERS Hysterectomy Cristopher Chang Work Phone: Hysterectomy Wiliam WALLACE Knee Surgery Cristopher Chang Work Phone: Repair of stress inc ontinence by suprapubic sling Wiliam WALLACE Spinal arthrodesis Wiliam HERNANDEZ Viral screening Samantha Toro Other Plan of Treatment Date Care Activity Detail Author Start: 10-27-2025 End: 10-27-2025 Patient encounter procedure 10/27/2025 2:00 PM EST Office Visit [facility] [address] [place] [address] Cony Garrido, DO [address] [place], [place] [id number] [facility] Start: 01-14-2025 End: 01-14-2025 Patient encounter procedure 01/14/2025 2:10 PM EST Office Visit [facility] [address] [place] [id number] Cony Garrido, DO [address] [place] [address] [facility] Start: 11-04-2024 End: 11-04-2024 Patient encounter procedure 11/04/2024 1:20 PM EST Office Visit [facility] [address] [place] [id number] Cony Garrido, DO [address] [place] [address] [facility] Start: 10-14-2024 End: 10-14-2025 DXA Skeletal system Views for bone density DEXA bone density Imaging Routine Postoperative examination Expected: 10/14/2024 (Approximate), Expires: 10/14/2025 [facility] Comment on above: Expected: 10/14/2024 (Approximate), Expires: 10/14/2025 Start: 10-14-2024 End: 12-14-2025 MG Breast - bilateral Screening Bilateral screening mammogram Imaging Routine Breast cancer screening by mammogram Expected: 10/14/2024, Expires: 12/14/2025 [facility] Work Phone: Comment on above: Expected: 10/14/2024 , Expires: 12/14/2025 Start: 09-02-2024 End: 09-02-2024 Patient encounter procedure 09/02/2024 10:10 AM EDT Office Visit [facility] [address] [place] [phone] Cony Garrido, DO [address] [facility] [address] [place], [place] [id number] [facility] Start: 07-28-2024 End: 07-28-2024 Patient encounter procedure 07/28/2024 1:30 PM EDT Office Visit [facility] [address] [place] [phone] Cony Garrido, DO [address] [place] [address] Arrived [facility] Comment on above: Arrived Start: 07-20-2024 Influenza vaccination Influenza Vacc ine (#1) [facility] Start: 07-01-2024 [facility] Start: 2021 Pneumococcal Vaccine : 65+ Years (1 of 1 - PCV) Pneumococcal Vaccine: 65+ Years (1 of 1 - PCV) [facility] Start: 1996 Screening for malign ant neoplasm of breast Mammogram [facility] Start: 1955 Screening for malign ant neoplasm of colon [facility] THIN PREP TIS PAP AN D HR HPV DNA THIN PREP TIS PAP AND HR HPV DNA Pathology and Cytology Routine Well woman exam with routine gynecological exam Ordered: 10/14/2024 [facility] Comment on above: Ordered: 10/14/2024 Immunizations Immunization Date Immunization Notes Care Provider Fa cility 11-25-2021 SARS-CoV-2 (COVID-19 ) mRNA BNT-162b2 vax Trudi MCCANN [facility] 01-26-2021 SARS-CoV-2 (COVID-19 ) Ad26 vaccine, recombinant Brush SALAM [facility] NEGATED: Highlighted row has not occurred!01-11-2022 influenza virus vaccine, unspecified formulation Deyanira Chan [facility] Payers Date Payer Category Payer Self-pay [id number] 2021 Private Health Insurance [employer] [id number] 2021 Unknown 1959 Unknown [id number] 1956 Unknown [id number] .2.593 1956 Unknown [id number] [id number] .2.593 1956 Unknown [id number] [id number] .2.727 1956 Unknown [id number] [id number] .2.727 1956 Unknown [id number] 2.16.840.1.828512.3.579 .2.1259 1956 Unknown [id number] [id number] .2.1259 1956 Unknown [id number] 2.16.840.1.425837.3.579 .2.9 1956 Unknown [id number] 2.16.840.1.897944.3.579 .2.1258 1956 Unknown [id number] 2.16.840.1.936240.3.579 .2.9 1956 Unknown [id number] 2.16.840.1.054808.3.579 .2.1258 1956 Unknown [id number] 2.16.840.1.790584.3.579 .2.1258 Unknown [id number] Unknown [id number] [id number] .2.531 Social History Date Type Detail Facility Tobacco smoking status NHIS Unknown if ever smoked [facility] Start: 1955 Sex Assigned At Female [facility] Never a smoker Never a smoker [facility] [address] Work Phone: Start: 08-03-2017 End: 03-14-2022 Tobacco smoking status Never smoked tobacco (finding) [facility] Tobacco smoking status Never [facility] Sex Assigned At Female [facility] Tobacco smoking status NHIS Tobacco smoking consumption unknown [facility] Start: 1955 Sex assigned at Not on file [facility] Goals Date Patient Goal Desired Activity /State Functional Status Date Assessment Result Facility 05-05-2024 Functional Status N/A [facility] Clinical Notes 03-14-2022 to 10-14-2024 Leticia Courtney LPN - 10/14/2024 1:20 PM Humberto Carson, PHOTOGRAPHY INSTRUCTOR - 07/28/2024 1:30 PM EDT Note Date & Type Note Facility 10-14-2024 History of Present illness Narrative Reason for Appointment: Patient ID: Nancy Billingsley is a 69 y.o. female who presents for Well Women Visit Patient presents today for Annual Exam. MEDICATIONS Current Outpatient Medications Medication Instructions ARIPiprazole (ABILIFY) 2 mg, Nightly cyclobenzaprine (FLEXERIL) 10 mg, Nightly DULoxetine (CYMBALTA) 120 mg, Daily etodolac (LODINE) 500 mg, 2 times daily ALLERGIES No Known Allergies PROBLEMS Active Ambulatory Problems Diagnosis Date Noted Vaginal burning 06/18/2024 Vaginal lesion 06/18/2024 Resolved Ambulatory Problems Diagnosis Date Noted No Resolved Ambulatory Problems Past Medical History: Diagnosis Date Autoimmune disease (CMS/[facility]) HISTORY PAST MEDICAL HISTORY SOCIAL HISTORY Past Medical History: Diagnosis Date Autoimmune disease ([facility]) Social History Tobacco Use Smoking status: Not on file Smokeless tobacco: Not on file Substance Use Topics Alcohol use: Not on file Drug use: Not on file FAMILY HISTORY Family History Problem Relation Name Age of Onset Other (mysothelioma) Mother Emphysema Father Other (bladder cancer) Sister SURGICAL HISTORY Past Surgical History: Procedure Laterality Date BLADDER BUNIONECTOMY HYSTERECTOMY SPINAL FUSION REVIEW OF SYSTEMS Review of Systems: Review of Systems Constitutional: Negative. HENT: Negative. Eyes: Negative. Respiratory: Negative. Cardiovascular: Negative. Gastrointestinal: Negative. Genitourinary: Negative. Musculoskeletal: Negative. Skin: Negative. Neurological: Negative. All other systems reviewed and are negative. Hematological: Negative. Endocrine: Negative. Allergic/Immunologic: Negative. OBJECTIVE Objective: Physical Exam Constitutional: Appearance: Normal appearance. She is well-developed. Genitourinary: Vulva normal. Vaginal cuff intact. Cervix is absent. Uterus is absent. Breasts: Breasts are soft. Right: Normal. Left: Normal. Cardiovascular: Rate and Rhythm: Normal rate and regular rhythm. Pulmonary: Effort: Pulmonary effort is normal. Breath sounds: Normal breath sounds. Abdominal: General: Bowel sounds are normal. There is no distension. Palpations: Abdomen is soft. Tenderness: There is no abdominal tenderness. There is no guarding or rebound. Musculoskeletal: General: No swelling. Normal range of motion. Right lower leg: No edema. Left lower leg: No edema. Neurological: Mental Status: She is alert and oriented to person, place, and time. Skin: General: Skin is warm and dry. Psychiatric: Mood and Affect: Mood normal. Behavior: Behavior normal. Vitals and nursing note reviewed. Exam conducted with a lead network architect present. Vitals: Estimated body mass index is 29.41 kg/m as calculated from the following: Height as of 03/18/24: 5' 2 . Weight as of this encounter: 160 lb 12.8 oz. BP: 110/70 No LMP recorded. Patient has had a hysterectomy. ASSESSMENT & PLAN ICD-10-CM 1. Well woman exam with routine gynecological exam Z01.419 THIN PREP TIS PAP AND HR HPV DNA 2. Breast cancer screening by mammogram Z12.31 Bilateral screening mammogram Bilateral screening mammogram 3. Postoperative examination Z09 DEXA bone density Annual: Patient presents today for an annual exam. Patient states she is doing well and has complaints of dyspareunia rx for estrace cream faxed to pharmacy. Pt having to use the restroom often. Had bladder fixed twice- pt will return in 3 months for evaluation of vaginal cream. Discussed referral to Dr Paul for second opinion. Pap was obtained without difficulty and patient given mammogram order to have scheduled/obtained. Orders Placed This Encounter Procedures Bilateral screening mammogram DEXA bone density Follow Up: Patient is to return in one year for annual unless needed otherwise. Documented by Leticia Courtney LPN on behalf of: Cony Garrido DO documented in this encounter [facility] 07-28-2024 History of Present illness Narrative Reason for Appointment: Patient ID: Nancy Billingsley is a 69 y.o. female who presents for Biospy follow up Patient presents today for Follow up appointment to discuss results. MEDICATIONS Current Outpatient Medications Medication Instructions ARIPiprazole (ABILIFY) 2 mg, Oral, Nightly clobetasol (Temovate) 0.05 % cream 1 application , Topical, Daily, Apply to affected area daily in the morning cyclobenzaprine (FLEXERIL) 10 mg, Oral, Nightly DULoxetine (CYMBALTA) 120 mg, Oral, Daily etodolac (LODINE) 500 mg, Oral, 2 times daily Premarin 0.5 g, Vaginal, Daily, Insert 1/2 applicator at bedtime nightly for 2 weeks then twice a week thereafter valACYclovir (VALTREX) 500 mg, Oral, Daily, Take 2 tablets by mouth for 10 days, then once a day after that. ALLERGIES No Known Allergies PROBLEMS Active Ambulatory Problems Diagnosis Date Noted Vaginal burning 06/18/2024 Vaginal lesion 06/18/2024 Resolved Ambulatory Problems Diagnosis Date Noted No Resolved Ambulatory Problems Past Medical History: Diagnosis Date Autoimmune disease (CMS/HCC) HISTORY PAST MEDICAL HISTORY SOCIAL HISTORY Past Medical History: Diagnosis Date Autoimmune disease (CMS/HCC) Social History Tobacco Use Smoking status: Not on file Smokeless tobacco: Not on file Substance Use Topics Alcohol use: Not on file Drug use: Not on file FAMILY HISTORY Family History Problem Relation Name Age of Onset Other (mysothelioma) Mother Emphysema Father Other (bladder cancer) Sister SURGICAL HISTORY Past Surgical History: Procedure Laterality Date BLADDER BUNIONECTOMY HYSTERECTOMY SPINAL FUSION REVIEW OF SYSTEMS Review of Systems: Review of Systems All other systems reviewed and are negative. OBJECTIVE Objective: Physical Exam Constitutional: Appearance: Normal appearance. She is well-developed. Cardiovascular: Rate and Rhythm: Normal rate and regular rhythm. Pulmonary: Effort: Pulmonary effort is normal. Breath sounds: Normal breath sounds. Abdominal: General: Bowel sounds are normal. There is no distension. Palpations: Abdomen is soft. Tenderness: There is no abdominal tenderness. There is no guarding or rebound. Musculoskeletal: General: No swelling. Normal range of motion. Right lower leg: No edema. Left lower leg: No edema. Neurological: Mental Status: She is alert and oriented to person, place, and time. Skin: General: Skin is warm and dry. Psychiatric: Mood and Affect: Mood normal. Behavior: Behavior normal. Vitals and nursing note reviewed. Exam conducted with a lead network architect present. Vitals: Estimated body mass index is 29.47 kg/m as calculated from the following: Height as of 03/18/24: 5' 2 . Weight as of this encounter: 161 lb 1.9 oz. BP: 130/70 No LMP recorded. Patient has had a hysterectomy. ASSESSMENT & PLAN ICD-10-CM 1. Encounter to discuss test results Z71.2 Patient presents today for follow up appointment from Clobetasol Cream. Patient has been on medication for 3-4 weeks so far and her symptoms are 100% improved. Patient to continue medication for another solid month and then maintenance dosage of twice weekly. Patient to follow up in 12 weeks for PAP smear. Documented by Esperanza Carson LPN on behalf of: Cony Garrido DO documented in this encounter [facility] 05-05-2024 Hospital Discharge instructions Patient Education 05/05/2024 10:51:46 Cystoscopy Cystoscopy [...] including vitamins, herbs, eye drops, creams, and wmpb-fkf-vggmjcp medicines. Any problems you or family members [...] provider tells you to take them. Taking ncmi-clp-vsnkwtu medicines, vitamins, herbs, and supplements. Tests You [...] Follow these instructions at home: Medicines Take dsup-ejk-ogebeue and prescription medicines only as told by [...] provider. Document Revised: 07/19/2022 Document Reviewed: 06/17/2021 F2G Patient Education 2022 [employer] Follow Up Care 03/24/2024 15:37:07 With:WILL LARA, Wiliam Gardner, URL Address: [facility] [address], [place] [address]- When: Unknown [facility] 05-05-2024 Note Chief Complaint referral for incontinence HPI Staff Referral for incontinence by Dr. Garrido. Pt states that she had a bladder sling procedure done about [address] [facility]. She states that the incontinence is [...] s/p bladder sling 15 yrs ago at [facility]. S/p hysterectomy. 1. Overflow incontinence (N39.490: Overflow incontinence) S/p bladder sling and prolapse repair 15 yrs ago at [facility] by Dr. Jimenez due to bladder prolapse. Likely had large piece of mesh placed. Pt was dry after sling. Leaking starting 5 yr ago. Leaking worsens with increased fluid intake and coffee. Tried cream through Dr. Toro, does not recall cream. [place] it was washed away each time she [...] cream for #3. -Retrieve op note from F. -Will schedule cysto with pelvic exam. The risks and benefits for cystoscopy have been discussed. The risks include bleeding, infection, and irritation of the bladder and urinary channel, among others. The patient, after being informed of procedural details and after questions have been answered, wishes to proceed. Full informed consent has been obtained. Will order Local anesthesia. Prophylactic abx sent to [facility]. 2. Incomplete bladder emptying (R33.9: Retention [...] past. -Start Clobetasol bid. Rx sent to [facility]. 4. Dysuria (R30.0: Dysuria) Also has burning with urination which would not be caused by external irritation. Follow-up With When Contact Information Wiliam WALLACE MD, [facility] [address] [place] [address]- Additional Instructions: schedule cysto with pelvic exam Patient Education Cystoscopy INasra, personally scribed for Dr. Will og (more content not included)... [facility] Comment on above: Result Comment: Elec tronically [...] including vitamins, herbs, eye drops, creams, and dprn-oor-rjcgjma medicines. ? Any problems you or family [...] tells you to take them. ? Taking dkng-law-pywnlvc medicines, vitamins, herbs, and supplements. Tests You [...] these instructions at home: Medicines ? Take jtgo-rcd-atfulag and prescription medicines only as told by [...] th (more content not included)... [facility] 12-26-2022 Evaluation note Encounter Date Diagnosis Assessment Notes Dec, Vulvovaginitis (ICD-10 - N76.0) Explained prescription cream should help with irritation and itching. Discussed various brands of incontinence pads. Offered medication to help with urinary incontinence which she did not declines at this time. Also offered a referral for [employer] or urology for chronic incontinence which she declines as well. [employer] Other 04-26-2022 Hospital Discharge instructions Patient Education [...] Follow these instructions at home: Medicines Take xtda-xit-gaisktu and prescription medicines only as told by your health care provider. If you were prescribed an antibiotic medicine, take it as told by your health care provider. Do notstop taking the antibiotic even if you start to feel better. Eating and drinking Follow any diet changes as told by your health care provider. Work with a diet and supervisor nutritional yeast (dietitian) to create an eating plan that [...] 11/02/2001 Document Revised: 03/31/2020 Document Reviewed: 03/31/2020 [employer] Patient Education 2020 [employer]. Follow Up Care 02/23/2022 16:00:41 With:Deyanira Chan CNP Address: When:3 months [facility] Evaluation + Plan note Future Appointments Appointment Date:06/13/2022 10:00:00 AM Scheduled Provider:Deyanira Chan CNP Location[facility]ointment Type:[facility] Follow Up Future Scheduled Tests Radiology* XR Esophagus 03/14/22 [facility] evaluofmfg noteNo assessment information available [facility] Work Phone: Evaluation note* Diagnosis Well woman exam with routine gynecological exam Routine gynecological examination Breast cancer screening by mammogram Postoperative examination Follow-up examination, following unspecified surgery Dyspareunia in female documented in this encounter [facility] Diagnosis Encounter to discuss test results Other specified counseling Vaginal itching Pruritus of genital organs Vaginal lesion Other specified noninflammatory disorder of vagina documented in this encounter [facility] N[facility]ative - Reported* Type Description Date [...] surgery 08/2017 Hospitalization History SEE SURGICAL HX [employer] Other Hospital course Narrative No data available for this section [facility] Hospital Discharge instructions No data available for this section [facility] Progress note No data available for this section [facility] Summary Purpose Family History Relationship [...] is getting better perhaps we can watch ihbx-ogl-yhx. If she is not getting better, I will likely need to get an MRI so that we can evaluate further. Additional Source Comments INFORMATION SOURCE (unrecogn ized section and content) DATE CREATED AUTHOR 05/14/2018 [facility] DATE CREATED AUTHOR AUTHOR'S ORGANIZ ATION 05/06/2021 [employer] DATE CREATED AUTHOR AUTHOR'S ORGANIZ ATION 05/10/2021 [facility] DATE CREATED AUTHOR AUTHOR'S ORGANIZ ATION 04/13/2022 [facility] DATE CREATED AUTHOR AUTHOR'S ORGANIZ ATION 07/11/2024 [facility] DATE CREATED AUTHOR AUTHOR'S ORGANIZ ATION 08/30/2024 [facility] DATE CREATED AUTHOR AUTHOR'S ORGANIZ ATION 10/17/2024 [facility] EPIC Care Team (unrecognized sect ion and content) Team Status: Inactive Member Role Status Dates Cony Garrido DO Attending Provider Active Start : July 01, 2024 End: July 01, 2024 REASON FOR VISIT (unrecogniz ed section and content) Reason Comments Well Women Visit Reason Comments [facility] follow up Goals (unrecognized section and content) Goals may [...] BE BASED ON THE PRIMARY CLINICAL RECORDS. [facility] provides no warranty or guarantee of the accuracy or completeness of information in this document.
== END 2025-01-14 08:55 | disposition home or self-care (01) ==
LOC: MAMMO 08:54
PROVIDERS: PCP Family Medicine; Visit Provider Obstetrics & Gynecology
DX: Z12.31 Encounter for screening mammogram for malignant neoplasm of breast (principal); Z78.0 Asymptomatic menopausal state; Z80.52 Family history of malignant neoplasm of bladder; Z80.8 Family history of malignant neoplasm of other organs or systems; R92.8 Other abnormal and inconclusive findings on diagnostic imaging of breast; M85.80 Other specified disorders of bone density and structure, unspecified site
CPT/HCPCS: 77063; 77067; 77080

== ENCOUNTER 2025-02-09 09:56 | Outpatient (OUT) | payer OTHER, SELFPAY ==
--- OUTSIDE RECORDS SUMMARY | 2025-02-09 10:17 | XMS_ITS | CCD ---
Author Organization [facility] CliniSynj Care Team Providers Care Green Prom[employer] Specialist Name Role Phone Flavio Diazolas Lorraine Unavailable Unavailable Cristopher Chang Unavailable UnavailCristopher Vivas Unavailable UnavailCristopher Vivas Unavailable Unavailable Unavailable CRISTOPHER CHANG Primary Care Physician ALEXANDRE, DR ROMERO Attending Unavailable TIMMIS, DR ROMERO Consulting Unavailable BUSTOS, DR SAMANTHA Martinez Primary Care Unavailable TIMWINNIE, DR ROMERO Admitting Unavailable BERNARDO, DR YOST Referring Unavailable BLAKELY ISLAND, DR RAHUL Espinoza Consulting Unavailable DELLA, DR VILLARREAL Consulting Unavailable DELLA, DR VILLARREAL Admitting Unavailable AKASH, DR SAMANTHA Martinez Primary Care Unavailable DELLA, DR VILLARREAL Attending Unavailable Samantha Bustos Unavailable DO Cony Garrido Attending Provider Wiliam WALLACE Attending Unavailable RALPH AYERS Referring Unavailable Wiliam WALLACE Attending Unavailable Unavailable Primary Care Provider Unavaillynda e CONY GARRIDO Attending Unavailable ANDRIA, RALPH Attending Unavailable ANDRIA, RALPH Attending Unavailable ANDRIA, RALPH Attending Unavailable ANDRIA, RALPH Attending Unavailable HEMAKIMBERLEE SMITHY Attending Unavailable HEMA, CONY Attending Unavailable HEMA, CONY Attending Unavailable Cony Garrido DO Attending Provider [phone] Cristopher Chang DO Primary Care Provider Cony Garrido Attending Unavailable Cony Garrido Admitting Unavailable Cony Garrido Attending Unavailable Cristopher Chang Primary Care Unavailable Cony Garrido Admitting Unavailable Unavailable Unavailable Unavailable Allergies Allergy Classification Reported Allergen(s) Allergy Type Date of Onset Reaction(s) Facility (1 source) No Known Medication Allergies; Translations: [No Known Medication Allergies] Propensity to adverse reactions (disorder) [facility] Repository Medications Current Medications Medication Drug Class(es) Dates Sig (Normalized) Sig (Original) acetaminophen 325 mg / HYDROcodone bitartrate 5 mg oral tablet (3 sources) Opioid Agonist Start: 08-20-2017 take 1 tablet by mouth every four to six hours as needed for pain Hydrocodone-Aceta minophen ([facility]) 5-325 mg tablet Active 1 - 2 TAB PO EVERY 4-6 HOURS as needed for Pain 40 August 20, 2017 10:07am ARIPiprazole 2 mg oral tablet (14 sources) Atypical Antipsychotic Start: 01-11-2022 take 1 [...] clobetasol pro pionate 0.05% top oint 1 ct, Topical, BID, 45 gm, Refill(s) 1, Apply [...] Start: 09-23-2019 DULoxetine 60 mg oral capsule (20 sources) Serotonin and Norepinephrine Reuptake Inhibitor Start: 02-17-2022 take 60 mg by mouth once daily duloxetine 60 mg, Oral, Daily, Refills(s) 0, Depression Start Date: 02/17/22 Status: Ordered Start: 08-20-2017 take 1 capsule by mo uth once daily Duloxetine 60 mg capsule,delayed release(DR/EC) Active 1 CAP PO Daily August 20, 2017 12:00am take 2 capsules by m out once daily DULoxetine (Cymbalta) [address] capsule Take 120 mg by mouth Daily Active Cymbalta 30 MG O ral Capsule Delayed Release Particles Quantity: 0 Refills: 0 Ordered: 12-Feb-2014 DO Active Cymbalta 60 MG O ral Capsule Delayed Release Particles Quantity: 0 Refills: 0 Ordered: 12-Feb-2014 DO Active estradiol 0.1 mg/ml vaginal cream (6 sources) Estrogen Start: 10-14-2024 End: 10-14-2025 estradiol (Estrace) 0.1 MG/GM vaginal cream Indications: Dyspareunia in female Insert 2 g into the vagina at bedtime Once a day for one month and then at bedtime twice a week. 42.5 g 11 10/14/2024 10/14/2025 Active estrogens, conjugated (shelter) 0.625 mg/ml vaginal cream (3 sources) Estrogen Start: 07-03-2024 End: 08-02-2024 Estrogens Conjugated (Premarin) 0.625 MG/GM cream Indications: Vaginal lesion Insert 0.5 g into the vagina Daily Insert 1/2 applicator at bedtime nightly for 2 weeks then twice a week thereafter 1 g 3 07/03/2024 08/02/2024 Active etodolac 500 mg oral tablet (14 sources) Nonsteroidal Anti-inflammatory Drug Start: 01-11-2022 take [...] Ordered hydroxychloroquine sulfate 200 mg oral tablet (8 sources) Antimalarial, Antirheumatic Agent Start: 02-17-2022 take 200 mg by mouth twice daily hydroxychloroquine 200 mg, Oral, BID, Refills(s) 0, Arthritis Start Date: 02/17/22 Status: Ordered Start: 08-20-2017 take 1 tablet by rudolph th once daily Hydroxychloroquine (Plaquenil) 200 mg Tablet Active 200 MG PO Daily August 20, 2017 12:00am Plaquenil 200 MG Oral Tablet Quantity: 0 [...] completed, # 2 tab(s), Refills(s) 0, Pharmacy: [facility] 1155, 158, cm, 05/05/24 10:21:00 EDT, Height/Length Dosing, 70, kg, 05/05/24 10:21:00 EDT, Weight Dosing Start Date: 05/05/24 Status: Ordered cyclobenzaprine (19 sources) Muscle Relaxant Start: 02-17-2022 take 3 tablets by mouth once daily at bedtime cyclobenzaprine 10 mg, Oral, Once a day (at bedtime), takes 3 tabs, Refills(s) 0, Spasm Start Date: 02/17/22 Status: Ordered Start: 08-20-2017 take 3 tablets by mo uth at bedtime Cyclobenzaprine 10 mg tablet Active 3 TAB PO Bedtime August 20, 2017 12:00am Start: 08-20-2017 take 3 tablets by mo uth at bedtime Cyclobenzaprine Active 3 TAB Oral Bedtime August 20, 2017 7:28am take 1 tablet by rudolph th at bedtime cyclobenzaprine (Flexeril) 10 MG tablet Take 10 mg by mouth at bedtime Active Flexeril Active Flexeril TABS Qu antity: 0 Refills: 0 Ordered: 12-Feb-2014 DO Active doxycycline hyclate 100 mg oral tablet (5 sources) Tetracycline-class Drug Start: 08-20-2017 Doxycy heredia Hyclate 100 MG Oral Tablet Quantity: 14 Refills: 0 Ordered: 20-Aug-2017 DO Start : 20-Aug-2017 Active Start: 08-20-2017 take 1 tablet by rudolph th twice daily Doxycycline Hyclate 100 mg tablet Active 100 MG PO Twice daily 14 August 20, 2017 12:00am meloxicam 15 mg oral tablet (2 sources) [...] 04-11-2022 Chronic Other aftercare (1 source) Other moth exterminator (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) drug therapy; 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] Onset: 04-13-2022 Episodic Other [...] disorders of vagina] Onset: 05-05-2024 Episodic Other female genital disorders (12 sources) Burning sensation of vagina; Translations: [Other specified conditions associated with female genital organs and menstrual cycle] Onset: 06-18-2024 06-18-2024 Episodic Other gastrointestinal disorders (4 sources) Dysphagia; Translations: [Dysphagia, unspecified] Onset: 03-14-2022 Episodic Other inflammatory condition of skin (5 sources) Pruritus of vagina; Translations: [Other specified noninflammatory disorders of vagina] 05-05-2024 Episodic Other screening for suspected conditions (not mental disorders or infectious disease) (5 sources) Patient encounter status; Translations: [Encounter for screening mammogram for malignant neoplasm of breast] Onset: 01-22-2025 10-14-2024 Episodic Other skin disorders (1 source) [...] esophagitis without hemorrhage] Other female genital disorders (12 sources) Vaginal lesion; Translations: [Other specified noninflammatory disorders of vagina] Onset: 06-18-2024 06-18-2024 Episodic Unclassified (3 sources) Autoimmune (qualifier value) 02-18-2016 Results Test Name Value Interpretation Reference Range Facility MM special view RT w/CADon 0 01-22-2025 MM special view RT w/CAD [facility] [address] [place] [address] Mammography Report Signed Patient: Nancy Billingsley V MR#: [id number] : 1955 Acct:[id number] Age/Sex: 69 / F Adm Date: 01/22/25 Loc: [place] Room: Type: [facility] Attending Dr: Cony Garrido DO Ordering Provider: Cony Garrido Date of Service: 01/22/25 Procedure(s): MM special view RT w/CAD Accession Number(s): ([id number]) MM/MM special view RT w/CAD: R92.8 Copies to: DO Cony Smith CLINICAL DATA: Callback focal asymmetry right breast Right DIAGNOSTIC MAMMOGRAM - WITH TOMOSYNTHESIS AND CAD , COMPARISON:Mammograms dating back to 2018 Tomosynthesis imaging was obtained using low-dose digital [...] Langley Jr., D.OParisa01/22/2025 9:14 AM Dictation Location: [facility] Dictated By: Carlos Langley Jr, DO 01/22/25908 Signed By: 01/22/25 0914 Normal [facility] Mammography reportOrdered By : Carlos Langley on 01-22-2025 Diagnostic imaging study [facility] [address] [place] [address] Mammography Report Signed Patient: Nancy Billingsley V MR# : [id number] : 1955 Acct:[id number] Age/Sex: 69 / F Adm Date: 5 Loc: [place] Room: Type: [facility] Attending Dr: Cony Garrido DO Ordering Provider: Cony Garrido Date of Service: 01/22/25 Procedure(s): MM special view RT w/CAD Accession Number(s): ([id number]) MM/MM special view RT w/CAD: R92.8 Copies to: DO Cony Smith~ CLINICAL DATA: Callback focal asymmetry right breast [...] compresses out on the spot compression views suggestsoverlapping stroma. MM/MM special view RT w/CAD IMPRESSION: [...] grounds. Impression dictated by: Carlos Langley Jr., D.O.01/22/2025 9:14 AM Dictation Location: [facility] Dictated By: Carlos Langley Jr DO 01/22/25 0909 Signed By: 01/22/25 0914 [facility] MM TOMOSYNTHESIS SCREENING B Ion 01-14-2025 [place] [address] Mammography Report Signed Patient: NANCY BILLINGSLEY V MR#: [id number] : 1955 Acct:[id number] Age/Sex: 69 / F ADM Date: 01/14/25 Loc: MAMMO Attending Dr: Cony Garrido D.O. Ordering Physician: Cony Garrido D.O. Results: Date of Service: 01/14/25 Follow Up: Procedure(s): MM tomosynthesis screening BI Accession Number(s): [id number] cc: Samantha Bustos M.D.; Cony Garrido D.O. Patient Name: NANCY BILLINGSLEY MR#: [id number] : 1955 Exam Date: 01/14/2025 Ordering Doctor: DR Cony Garrido . RADIOLOGY REPORT PROCEDURE: MM TOMOSYNTHESIS SCREENING BI COMPARISON: MG MAMM SCREEN HOLLY W CAD, 09/18/2019. INDICATIONS: Screening Calculator Name NCI Breast Cancer Risk Assessment Tool 5 Year Breast Cancer Risk 2.60% Lifetime Breast Cancer Risk 8.30% Personal Breast Cancer No Personal Ovarian Cancer No Treatments None Family Cancers Mother with mesothelioma cancer at age 59; Sister with bladder cancer at age 50. LOCATION: [facility] BREAST COMPOSITION: The breasts are heterogeneously dense,which may obscure small masses. FINDINGS: RIGHT BREAST: No significant suspicious finding. LEFT BREAST: FOCAL ASYMMETRY 8 cm from the nipple medially at the 3 o'clock position in the right breast measuring approximately 6 millimeters in greatest dimension. This is new when compared to the prior exam. DIAGNOSTIC CATEGORY 0--INCOMPLETE: NEED ADDITIONAL IMAGING EVALUATION. RECOMMENDATIONS: ADDITIONAL MAMMOGRAPHIC VIEWS REQUIRED: RIGHT BREAST - spot compressed and craniocaudal ULTRASOUND: RIGHT BREAST PLEASE NOTE: A NORMAL MAMMOGRAM DOES NOT EXCLUDE THE POSSIBILITY OF BREAST CANCER. A CLINICALLY SUSPICIOUS PALPABLE LUMP SHOULD BE BIOPSIED. Dictated by: Kayden Ulrich MD on 01/14/2025 at 11:52 Approved by: Kayden Ulrich MD on 01/14/2025 at 11:54 Dictated By: Kayden Ulrich M.D. Signed By: 01/14/25 1155 DD/ 1154 TD/TT: Radio Frequency Technician: [facility] Radiology, Radiologi MD kevin - 01/14/2025 [place] [address] Mammography Report Signed Patient: NANCY BILLINGSLEY V MR#: [id number] : 1955 Acct:[id number] Age/Sex: 69 / F ADM Date: 01/14/25 Loc: MAMMO Attending Dr: Cony Garrido D.O. Ordering Physician: Cony Garrido D.O. Results: Date of Service: 01/14/25 Follow Up: Procedure(s): MM tomosynthesis screening BI Accession Number(s): [id number] cc: Samantha Bustos M.D.; Cony Garrido D.O. Patient Name: NANCY BILLINGSLEY MR#: [id number] : 1955 Exam Date: 01/14/2025 Ordering Doctor: DR Cony Garrido . RADIOLOGY REPORT PROCEDURE: MM TOMOSYNTHESIS SCREENING BI COMPARISON: MG MAMM SCREEN HOLLY W CAD, 09/18/2019. INDICATIONS: Screening Calculator Name NCI Breast Cancer Risk Assessment Tool 5 Year Breast Cancer Risk 2.60% Lifetime Breast Cancer Risk 8.30% Personal Breast Cancer No Personal Ovarian Cancer No Treatments None Family Cancers Mother with mesothelioma cancer at age 59; Sister with bladder cancer at age 50. LOCATION: [facility] BREAST COMPOSITION: The breasts are heterogeneously dense,which may obscure small masses. FINDINGS: RIGHT BREAST: No significant suspicious finding. LEFT BREAST: FOCAL ASYMMETRY 8 cm from the nipple medially at the 3 o'clock position in the right breast measuring approximately 6 millimeters in greatest dimension. This is new when compared to the prior exam. DIAGNOSTIC CATEGORY 0--INCOMPLETE: NEED ADDITIONAL IMAGING EVALUATION. RECOMMENDATIONS: ADDITIONAL MAMMOGRAPHIC VIEWS REQUIRED: RIGHT BREAST - spot compressed and craniocaudal ULTRASOUND: RIGHT BREAST PLEASE NOTE: A NORMAL MAMMOGRAM DOES NOT EXCLUDE THE POSSIBILITY OF BREAST CANCER. A CLINICALLY SUSPICIOUS PALPABLE LUMP SHOULD BE BIOPSIED. Dictated by: Kayden Ulrich MD on 01/14/2025 at 11:52 Approved by: Kayden Ulrich MD on 01/14/2025 at 11:54 Dictated By: Kayden Ulrich M.D. Signed By: 01/14/25 1155 DD/ 1154 TD/TT: Radio Frequency Technician: [facility] Radiology Study observation (narrative) [facility] MM TOMOSYNTHESIS SCREENING B IOrdered By: Radiologist Radiology on 01-14-2025 [facility] [employer] Work Phone: IGP,APTIMA HPV,AGE GDLNon AGE GDLN ACOG TESTING Note . [facility] Comment on above: TESTS RESULT FLAG UNITS REF RANGE LAB Clinician Provided Cytology Information Source.............Vagina No. of containers..01 ThinPrep Vial Age Algo ACOG [place]... Note 01 <21 or >65 or no age provided FLAG LEGEND: L-Low Normal,H-High Normal,LL-Alert Low,HH-Alert High <-Panic Low,>-Panic High,A-Abnormal,AA-Critical Abnormal Performed at: 01 =G [facility] [address] [facility] [place] [address] Fabiana Epstein MD, PAP IG (IMAGE GUIDED) Note . [facility] Comment on above: TESTS RESULT FLAG UNITS REF RANGE LAB DIAGNOSIS: 02 NEGATIVE FOR INTRAEPITHELIAL LESION OR MALIGNANCY. CELLULAR CHANGES ASSOCIATED WITH ATROPHY ARE PRESENT. Specimen adequacy: 02 Satisfactory for evaluation. Performed by: 02 Bri Melo, Crib Attendant ([facility]) . 02 Note: Note 03 [...] <-Panic Low,>-Panic High,A-Abnormal,AA-Critical Abnormal Performed at: 02 KENYA [facility] [employer] [address] [facility] [place] [address] Alexis Fuentes PhD, 03 WB [facility] [address] [place] [address] Fabiana Epstein MD, Performed at: =G - [facility] [address] [address] [place] [place], [place] [id number] Web Development Manager: Fabiana Epstein MD, Phone: [phone] Performed at: [place] - [facility] [address], [place] [id number] Web Development Manager: Alexis Fuentes PhD, Phone: [phone] SPATULA-ALONE VAGINA [facility] Request for Lab Co rpon 07-01-2024 Pathology Request for Lab Todd Normal [facility] Comment on above: Order Comment: 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 Scanned copy available in EMR. PERFORMED BY: [place] [address] PATHOLOGIST HISTORICAL SITE GUIDE CHELSEA CALL M.D. Performed By: #### P ATH TO [facility] #### [address] Auth for Release of Medical Recordson 05-06-2024 Auth for Release of Medical Records [id number]#1.00TIFF Normal [facility] Consent for Procedure/Surger yon 05-06-2024 Consent for Procedure/Surger y [id number]#[id number] Normal [facility] Formson 05-06-2024 Forms [id number]#1.00TIFF Normal [facility] Physician Referralon 024 Physician Referral [id number]#[id number] Normal [facility] Ambulatory Visit Summaryon 0 05-05-2024 Ambulatory Visit Summary NANCY BILLINGSLEY V :1955 Visit Date:05/05/2024 Ambulatory Visit Instructions [...] SIMRAN When: Where: [facility] [address] [place] [address]- Medications What How Much When Instructions Unchanged [...] for choosing us for your care. Normal [facility] C3 and C4 COMPLEMENTon 04-12 Complement C3, Serum 144 mg/dL Normal 82-167 [facility] Comment on above: Performed By: #### CSUITE #### [facility] [address] [address] [address] Will Stroud Complement C4, Serum 31 mg/dL Normal 12-38 [facility] Comment on above: Performed By: #### CSUITE #### [facility] [address] [place] [address] Dr. Will Stroud COMPLEMENT TOTAL (CH50)on Complement, Total (CH50) >60 Normal >41 [facility] Comment on above: Result Comment: Age Male [...] values. Performed By: #### C H50T #### [facility] [address] [place] [address] Dr. Will Stroud CBC AUTO DIFFon 04-11-2022 BASO # 0.0 103/ul Normal 0.0-0.1 [facility] Comment on above: Performed By: #### CBC #### [facility] [address] [place] [address] Dr. Will Stroud Basophils/100 WBC (Bld) 0.9 % Normal 0.2-2.0 [facility] Comment on above: Performed By: #### CBC #### [facility] [address] [place] [address] Dr. Will Stroud EO # 0.1 103/ul Normal 0.0-0.7 [facility] Comment on above: Performed By: #### CBC #### [facility] [address] [place] [address] Dr. Will Stroud Eosinophils/100 WBC (Bld) 1.7 % Normal 0.9-7.0 [facility] Comment on above: Performed By: #### CBC #### [facility] [address] [place] [address] Dr. Will Stroud Erythrocyte distribution width (RBC) [Ratio] 12.4 % Normal 11.0-15.0 [facility] Comment on above: Performed By: #### CBC #### [facility] [address] [place] [address] Dr. Will Stroud Hematocrit (Bld) [Volume fraction] 41.3 % Normal 36.0-48.0 [facility] Comment on above: Performed By: #### CBC #### [facility] [address] [place] [address] Dr. Will Stroud Hemoglobin (Bld) [Mass/Vol] 13.5 g/dL Normal 12.0-16.0 [facility] Comment on above: Performed By: #### CBC #### [facility] [address] [place] [address] Dr. Will Stroud IG # 0.00 10e3/ul Normal 0.00-0.03 [facility] Comment on above: Performed By: #### CBC #### [facility] [address] [place] [address] Dr. Will Stroud IG % 0.0 % Normal 0.0-0.5 [facility] Comment on above: Performed By: #### CBC #### [facility] [address] [place] [address] Dr. Will Stroud LYMPH # 1.3 103/ul Normal 1.2-3.8 [facility] Comment on above: Performed By: #### CBC #### [facility] [address] [place] [address] Dr. Will Stroud Lymphocytes/100 WBC (Bld) 29.6 % Normal 20.5-60.0 [facility] Comment on above: Performed By: #### CBC #### [facility] [address] [place] [address] Dr. Will Stroud MANUAL DIFF REQ NO Normal [facility] Comment on above: Performed By: #### CBC #### [facility] [address] [place] [address] Dr. Will Stroud MCH (RBC) [Entitic mass] 31.1 pg Normal 26.7-34.0 [facility] Comment on above: Performed By: #### CBC #### [facility] [address] [place] [address] Dr. Will Stroud MCHC (RBC) [Mass/Vol] 32.7 g/dL Normal 29.9-35.2 [facility] Comment on above: Performed By: #### CBC #### [facility] [address] [place] [address] Dr. Will Stroud MCV (RBC) [Entitic vol] 95.2 fL Normal 81.0-99.0 [facility] Comment on above: Performed By: #### CBC #### [facility] [address] [address] [address] Will Stroud MONO # 0.5 103/ul Normal 0.3-0.8 [facility] Comment on above: Performed By: #### CBC #### [facility] [address] [place] [address] Dr. Will Stroud Monocytes/100 WBC (Bld) 11.4 % Normal 1.7-12.0 [facility] Comment on above: Performed By: #### CBC #### [facility] [address] [place] [address] Dr. Will Stroud NEUT # 2.4 103/ul Normal 1.4-6.5 [facility] Comment on above: Performed By: #### CBC #### [facility] [address] [place] [address] Dr. Will Stroud Neutrophils/100 WBC (Bld) 56.4 % Normal 43.0-75.0 [facility] Comment on above: Performed By: #### CBC #### [facility] [address] [place] [address] Dr. Will Stroud Platelet mean volume (Bld) [Entitic vol] 8.6 fL Critically low 9.5-13.5 [facility] Comment on above: Performed By: #### CBC #### [facility] [address] [place] [address] Dr. Will Stroud PLT 237 103/ul Normal 150-450 [facility] Comment on above: Performed By: #### CBC #### [facility] [address] [place] [address] Dr. Will Stroud RBC 4.34 106/ul Normal 4.20-5.40 [facility] Comment on above: Performed By: #### CBC #### [facility] [address] [place] [address] Dr. Will Stroud WBC 4.2 103/ul Normal 4.0-11.0 [facility] Comment on above: Performed By: #### CBC #### [facility] [address] [place] [address] Dr. Will Stroud PROF 14(COMP METB)on 022 Albumin [Mass/Vol] 3.8 g/dL Normal 3.4-5.0 [facility] Comment on above: Performed By: #### CMP #### [facility] [address] [place] [address] Dr. Will Stroud Albumin/Globulin [Mass ratio] 1.0 {ratio} Normal [facility] Comment on above: Performed By: #### CMP #### [facility] [address] [place] [address] Dr. Will Stroud ALP [Catalytic activity/Vol] 110 U/L Normal 46-116 [facility] Comment on above: Performed By: #### CMP #### [facility] [address] [place] [address] Dr. Will Stroud ALT [Catalytic activity/Vol] 33 U/L Normal 14-59 [facility] Comment on above: Performed By: #### CMP #### [facility] [address] [place] [address] Dr. Will Stroud Anion gap [Moles/Vol] 11.8 mmol/L Normal [facility] Comment on above: Performed By: #### CMP #### [facility] [address] [place] [address] Dr. Will Stroud AST [Catalytic activity/Vol] 21 U/L Normal 15-37 [facility] Comment on above: Performed By: #### CMP #### [facility] [address] [place] [address] Dr. Will Stroud Bilirubin [Mass/Vol] 0.4 mg/dL Normal 0.2-1.0 [facility] Comment on above: Performed By: #### CMP #### [facility] [address] [place] [address] Dr. Will Stroud Calcium [Mass/Vol] 9.0 mg/dL Normal 8.5-10.1 [facility] Comment on above: Performed By: #### CMP #### [facility] [address] [place] [address] Dr. Will Stroud Chloride [Moles/Vol] 102 mmol/L Normal 98-107 [facility] Comment on above: Performed By: #### CMP #### [facility] [address] [place] [address] Dr. Will Stroud CO2 [Moles/Vol] 29.3 mmol/L Normal 21.0-32.0 [facility] Comment on above: Performed By: #### CMP #### [facility] [address] [place] [address] Dr. Will Stroud Creatinine [Mass/Vol] 0.86 mg/dL Normal 0.55-1.02 [facility] Comment on above: Performed By: #### CMP #### [facility] [address] [place] [address] Dr. Will Stroud EGFR-AF DJIBOUTIAN >60 Normal >=60 [facility] Comment on above: Performed By: #### CMP #### [facility] Laboratory [address] [place] [address] Dr. Will Stroud EGFR-NON AF DJIBOUTIAN >60 Normal >=60 [facility] Comment on above: Performed By: #### CMP #### [facility] [address] [place] [address] Dr. Will Stroud Globulin (S) [Mass/Vol] 3.8 g/dL Normal [facility] Comment on above: Performed By: #### CMP #### [facility] [address] [place] [address] Dr. Will Stroud Glucose [Mass/Vol] 106 mg/dL Normal 74-106 [facility] Comment on above: Performed By: #### CMP #### [facility] [address] [place] [address] Dr. Will Stroud Potassium [Moles/Vol] 4.1 mmol/L Normal 3.5-5.1 [facility] Comment on above: Performed By: #### CMP #### [facility] [address] [place] [address] Dr. Will Stroud Protein [Mass/Vol] 7.6 g/dL Normal 6.4-8.2 [facility] Comment on above: Performed By: #### CMP #### [facility] [address] [place] [address] Dr. Will Stroud Sodium [Moles/Vol] 139 mmol/L Normal 136-145 [facility] Comment on above: Performed By: #### CMP #### [facility] [address] [place] [address] Dr. Will Stroud Urea nitrogen [Mass/Vol] 15.0 mg/dL Normal 7.0-18.0 [facility] Comment on above: Performed By: #### CMP #### [facility] [address] [place] [address] Dr. Will Stroud Urea nitrogen/Creatin ine [Mass ratio] 17.4 mg/mg Normal [facility] Comment on above: Performed By: #### CMP #### [facility] [address] [place] [address] Dr. Will Stroud SED RATE [facility] 2021 SED RATE 6 mm/hr Normal <=30 [facility] Comment on above: Performed By: #### SEDR #### [facility] [address] [place] [address] Dr. Will Stroud UA RANDOM W/MICROSCOPICon BACTERIA NONE SEEN Normal NONE SEEN [facility] Comment on above: Performed By: #### UAMIC #### [facility] [address] [place] [address] Dr. Will Stroud Bilirubin Ql (U) Negative Normal NEGATIVE [facility] Comment on above: Performed By: #### UAMIC #### [facility] [address] [place] [address] Dr. Will Stroud CAST NONE SEEN Normal NONE SEEN [facility] Comment on above: Performed By: #### UAMIC #### [facility] [address] [place] [address] Dr. Will Stroud Clarity (U) CLEAR Normal CLEAR [facility] Comment on above: Performed By: #### UAMIC #### [facility] [address] [place] [address] Dr. Will Stroud Color (U) LT. YELLOW Normal YELLOW [facility] Comment on above: Performed By: #### UAMIC #### [facility] [address] [place] [address] Dr. Will Stroud Crystals LM Nom (Urine sed) NONE SEEN Normal NONE SEEN [facility] Comment on above: Performed By: #### UAMIC #### [facility] [address] [place] [address] Dr. Will Stroud Epithelial cells LM Ql (Urine sed) RARE Normal NONE SEEN /RARE [facility] Comment on above: Performed By: #### UAMIC #### [facility] [address] [place] [address] Dr. Will Stroud Glucose Ql (U) Negative Normal NEGATIVE [facility] Comment on above: Performed By: #### UAMIC #### [facility] [address] [place] [address] Dr. Will Stroud Hemoglobin Ql (U) Negative Normal NEGATIVE [facility] Comment on above: Performed By: #### UAMIC #### [facility] [address] [place] [address] Dr. Will Stroud Ketones Ql (U) Negative Normal NEGATIVE [facility] Comment on above: Performed By: #### UAMIC #### [facility] [address] [place] [address] Dr. Will Stroud LEUKOCYTES SMALL Abnormal NEGATIVE [facility] Comment on above: Performed By: #### UAMIC #### [facility] [address] [place] [address] Dr. Will Stroud MUCOUS NONE SEEN Normal NONE SEEN [facility] Comment on above: Performed By: #### UAMIC #### [facility] [address] [place] [address] Dr. Will Stroud Nitrite Ql (U) Negative Normal NEGATIVE [facility] Comment on above: Performed By: #### UAMIC #### [facility] [address] [place] [address] Dr. Will Stroud pH (U) 6.5 [pH] Normal 5-9 [facility] Comment on above: Performed By: #### UAMIC #### [facility] [address] [place] [address] Dr. Will Stroud RBC NONE SEEN Abnormal 0-2 [facility] Comment on above: Performed By: #### UAMIC #### [facility] [address] [place] [address] Dr. Will Stroud SPEC GRAVITY <=1.005 Abnormal 1.005-<=1.02 5 [facility] Comment on above: Performed By: #### UAMIC #### [facility] [address] [place] [address] Dr. Will Stroud UA PROTEIN Negative Normal NEGATIVE/ TRACE [facility] Comment on above: Performed By: #### UAMIC #### [facility] [address] [place] [address] Dr. Will Stroud Urobilinogen Qn (U) 0.2 {Fausto'U}/dL Normal 0.2 - 1.0 [facility] Comment on above: Performed By: #### UAMIC #### [facility] [address] [place] [address] Dr. Will Stroud WBC 0-2 Abnormal NONE SEEN [facility] Comment on above: Performed By: #### UAMIC #### [facility] [address] [place] [address] Dr. Will Stroud XR ESOPHAGUSon 11-18-2021 XR [...] by: RAHUL DOVE Date: 2021-11-18 12:29 Normal [facility] SPINE, LUMBOSACRAL; MIN 4 VIEWSon 05-04-2021 BN SPINE, LUMBOSACRAL; MIN 4 VIEWS Patient Name: NANCY BILLINGSLEY STUDY: SPINE, LUMBOSACRAL MIN 4 VIEWS INDICATION: AP/LAT FLEX & EXT. COMPARISON: October 25, 2017 ACCESSION NUMBER(S): [id number] ORDERING CLINICIAN: IAN DIAZ FINDINGS: L4-5 laminectomy and posterior fusion with pedicle screws at L5-S1. Hardware satisfactory. Alignment unchanged with anterolisthesis L5 on S1. No pathologic motion seen. IMPRESSION: Status post lower lumbar laminectomy with L5-S1 posterior fusion, unchanged in appearance without evidence of complication. Electronically signed by: KARIN AGARWAL MD Normal [facility] No Panel Informationon 05-04 Please click on the link to view the study images Normal [facility] [employer] [address] Work Phone: Office Visiton 05-04-2021 Follow-up [...] is getting better perhaps we can watch [id number]. If she is not getting better, I [...] is getting better perhaps we can watch [id number]. If she is not getting better, I [...] physical therapy (more content not included)... Normal [facility] SPINE, LUMBOSACRAL; MIN 4 [facility] 10-25-2017 SPINE, LUMBOSACRAL; MIN 4 VIEWS Name: [...] laminectomy change. No distinct hardware complication isevident. [id number] multilevel degenerative changes seen of thevisualized spine. IMPRESSION:1. Grade 1 anterolisthesis of L 5 on S 1.2. Surgical and degenerative changes discussed above.Electronically signed by: ROSALBA JACOBO MD [facility] Vital Signs Date Time Vital Sign Value Performing Clinician Facility 01-14-2025 14:13-0500 Body mass index (BMI) [Ratio] 29.52 kg/m2 Cony Hema DO Work Phone: [facility] 01-14-2025 14:13-0500 Body weight 73.21 kg Cony Hema DO Work Phone: [facility] 01-14-2025 14:13-0500 Diastolic blood pressure 76 mm[Hg] Cony Hema DO Work Phone: [facility] 01-14-2025 14:13-0500 Systolic blood pressure 120 mm[Hg] Cony Hema DO Work Phone: [facility] 10-14-2024 13:55-0500 Body mass index (BMI) [Ratio] 29.41 kg/m2 Cony Hema DO Work Phone: [facility] 10-14-2024 13:55-0500 Body weight 72.94 kg Cony Hema DO Work Phone: [facility] 10-14-2024 13:55-0500 Diastolic blood pressure 70 mm[Hg] Cony Hema DO Work Phone: [facility] 10-14-2024 13:55-0500 Systolic blood pressure 110 mm[Hg] Cony Hema DO Work Phone: [facility] 07-28-2024 13:46-0400 Body mass index (BMI) [Ratio] 29.47 kg/m2 Cony Hema DO Work Phone: [facility] 07-28-2024 13:46-0400 Body weight 73.08 kg Cony Hema DO Work Phone: [facility] 07-28-2024 13:46-0400 Diastolic blood pressure 70 mm[Hg] Cony Hema DO Work Phone: [facility] 07-28-2024 13:46-0400 Systolic blood pressure 130 mm[Hg] Cony Hema DO Work Phone: [facility] 05-05-2024 10:14-0400 Blood Pressure Location Wiliam WALLACE [facility] 05-05-2024 10:14-0400 Body temperature 98.6 [degF] Wiliam WALLACE [facility] 05-05-2024 10:14-0400 Diastolic blood pressure 85 mm[Hg] Wiliam WALLACE [facility] 05-05-2024 10:14-0400 Heart rate 87 /min Wiliam WALLACE [facility] 05-05-2024 10:14-0400 Respiratory rate 16 /min Wiliam WALLACE [facility] 05-05-2024 10:14-0400 Systolic blood pressure 138 mm[Hg] Wiliam WALLACE [facility] 12-26-2022 12:30-0500 Body height 154.94 cm Samantha Bustos Other [employer] [facility] Other 12-26-2022 12:30-0500 Body mass index (BMI) [Ratio] 30.23 kg/m2 Samantha Bustos Other [facility] Other 12-26-2022 12:30-0500 Body weight 72.58 kg Samantha Bustos Other [facility] Other 12-26-2022 12:30-0500 Diastolic blood pressure 100 mm[Hg] Samantha Bustos Other [facility] Other 12-26-2022 12:30-0500 SaO2% (BldA) [Mass fraction] 97 % Samantha Bustos Other [facility] Other 12-26-2022 12:30-0500 Systolic blood pressure 142 mm[Hg] Samantha Bustos Other [facility] Other 03-14-2022 13:01-0400 Blood Pressure Location Deyanira Chan [facility] 03-14-2022 13:01-0400 Body temperature 98.06 [degF] Deyanira Chan [facility] 03-14-2022 13:01-0400 Diastolic blood pressure 76 mm[Hg] Deyanira Chan [facility] 03-14-2022 13:01-0400 Heart rate 87 /min Deyanira Chan [facility] 03-14-2022 13:01-0400 SaO2% (BldA) [Mass fraction] 99 % Deyanira Chan [facility] 03-14-2022 13:01-0400 Systolic blood pressure 136 mm[Hg] Deyanira Chan [facility] Encounters Encounter Date Encounter Type Care Provider Facility Start: 01-22-2025 End: 01-22-2025 Patient encounter procedure Cristopher Ball DO Work Phone: [facility] Work Phone: Start: 01-22-2025 End: 01-22-2025 ambulatory Cristopher Ball DO Work Phone: [facility] Work Phone: Start: 01-14-2025 End: 01-14-2025 Office outpatient visit 15 minutes Cony Hema DO Work Phone: [facility] Comment on above: Follow-up encounter involving medication; Vaginal itching; Vaginal burning Start: 01-14-2025 End: 01-14-2025 ambulatory CONY HEMA Not Available Start: 01-14-2025 End: 01-14-2025 Clinisync Result Encounter Cony Hema DO Work Phone: [facility] Unsolicited Start: 01-14-2025 End: 01-14-2025 Clinisync Result Encounter Cony Hema DO Work Phone: [facility] Unsolicited Start: 10-14-2024 End: 10-14-2024 Bamboo flowsheet Cony Hema DO Work Phone: [facility] Start: 10-14-2024 End: 10-26-2024 Bamboo flowsheet Cony Hema DO Work Phone: [facility] Start: 10-14-2024 End: 10-26-2024 Clinisync Result Encounter Cony Hema DO Work Phone: [facility] Unsolicited Start: 10-14-2024 End: 10-14-2024 Patient encounter procedure Cony Hema DO Work Phone: [facility] Work Phone: Start: 10-14-2024 End: 10-14-2024 Periodic preventive med est patient 65yrs& older Cony Hema DO Work Phone: [facility] Comment on above: Well woman exam with routine gynecological exam; Breast cancer screening by mammogram; Postoperative examination; Dyspareunia in female Start: 10-14-2024 End: 10-14-2024 ambulatory CONY HEMA Not Available Start: 07-28-2024 End: 07-28-2024 Bamboo flowsheet Cony Hema DO Work Phone: [facility] Start: 07-28-2024 End: 07-28-2024 Bamboo flowsheet Cony Hema DO Work Phone: [facility] Start: 07-28-2024 End: 07-28-2024 Office outpatient visit 15 minutes Cony Hema DO Work Phone: [facility] Comment on above: Encounter to discuss test results; Vaginal itching; Vaginal lesion Start: 07-28-2024 End: 07-28-2024 ambulatory CONY HEMA Not Available Start: 07-01-2024 End: 07-01-2024 ambulatory Cony Hema [facility] Work Phone: Start: 07-01-2024 End: 07-01-2024 Departed Referred DO Cony Hema Work Phone: [facility] Start: 07-01-2024 End: 07-01-2024 ambulatory CONY HEMA Not Available Start: 06-18-2024 End: 06-18-2024 ambulatory RALPH ANDRIA Not Available Start: 06-10-2024 End: 06-10-2024 ambulatory RALPH ANDRIA Not Available Start: 05-19-2024 End: 05-19-2024 ambulatory Wiliam WALLACE Facility:[id number] Start: 05-05-2024 End: 05-05-2024 ambulatory Wiliam WALLACE Facility:[facility] Start: 05-05-2024 End: 05-05-2024 Patient encounter procedure Wiliam WLALACE [facility] Start: 04-07-2024 End: 04-07-2024 ambulatory RALPH AYERS Not Available Start: 03-21-2024 ambulatory Wiliam WALLACE Facility :[place] Start: 03-18-2024 End: 03-18-2024 ambulatory RALPH AYERS Not Available Start: 12-26-2022 End: 12-26-2022 ambulatory Samantha Bustos Other [facility] Other Start: 12-26-2022 Office outpatient vi sit 15 minutes Samantha Bustos [facility] Start: 08-17-2022 End: 08-17-2022 Patient encounter procedure Trudi MCCANN [facility] Start: 07-11-2022 Chart Update Cristopher lawrence Work Phone: [facility] Work Phone: Start: 04-11-2022 End: 04-12-[address] CHERELLE HULL Facility:[facility] Start: 03-14-2022 End: 03-14-2022 Patient encounter procedure Deyanira Carleen Chan [facility] Start: 11-18-2021 End: 11-19-[address] HEATHER SCHROEDER Facility:[facility] Start: 05-04-2021 Office outpatient vi sit 15 minutes Cristopher Juan Bernardo Work Phone: [facility] Work Phone: Start: 10-25-2017 Ambulatory Ian Diaz Fac ility:[facility] Procedures Date Procedure Procedure Detail Performing Clinician Start: 01-22-2025 Mammography of right breast Cristopher lawrence DO Work Phone: Start: 01-14-2025 MM TOMOSYNTHESIS SCREENING BI Cony Fazi o DO Work Phone: Start: 01-14-2025 Mammography Cony Hema DO Work Phone: Start: 10-14-2024 IGP,APTIMA HPV,AGE GDLN Cony Hema DO Work Phone: Start: 02-20-2022 Colonoscopy Deyanira Chan Comment on above: rectal polyp x1, small Ih Start: 02-20-2022 Esophagogastroduodenoscopy Deyanira corbett Comment on above: esophageal dilation, schatki's ring Bladder Surgery Cristopher E Nancy all Work Phone: Bunion Correct Resec t Joint [employer] First Toe Implant Cristopher Juan Chang Work Phone: Excision of bunion Wiliam Lary DICKINSONJAMILA Hysterectomy Cristopher Chang Work Phone: Hysterectomy Wiliamsean WALLACE Knee Surgery Cristopher Juan Chang Work Phone: Repair of stress inc ontinence by suprapubic sling Wiliam WALLACE Spinal arthrodesis Wiliam HERNANDEZ Viral screening Samantha Akash Other Plan of Treatment Date Care Activity Detail Author Start: 01-14-2026 Screening for malign ant neoplasm of breast Mammogram [facility] Start: 10-27-2025 End: 10-27-2025 Patient encounter procedure 10/27/2025 2:00 PM EST Office Visit [facility] [address] [place] [address] Cony Garrido, DO [address] [place] [address] [facility] Start: 01-14-2025 End: 01-14-2025 Patient encounter procedure 01/14/2025 2:10 PM EST Office Visit [facility] [address] [place] [id number] Cony Garrido, DO [address] [place] [address] [facility] Start: 11-04-2024 End: 11-04-2024 Patient encounter procedure 11/04/2024 1:20 PM EST Office Visit [facility] [address] [place] [id number] Cony Garrido, DO [address] [place] [address] [facility] Start: 10-14-2024 End: 10-14-2025 DXA Skeletal system Views for bone density DEXA bone density Imaging Routine Postoperative examination Expected: 10/14/2024 (Approximate), Expires: 10/14/2025 [facility] Comment on above: Expected: 10/14/2024 (Approximate), Expires: 10/14/2025 Start: 10-14-2024 End: 12-14-2025 MG Breast - bilateral Screening Bilateral screening mammogram Imaging Routine Breast cancer screening by mammogram Expected: 10/14/2024, Expires: 12/14/2025 [facility] Work Phone: Comment on above: Expected: 10/14/2024 , Expires: 12/14/2025 Start: 09-02-2024 End: 09-02-2024 Patient encounter procedure 09/02/2024 10:10 AM EDT Office Visit [facility] [address] [place] [phone] Cony Garrido, DO [address] [place] [address] [facility] Start: 07-28-2024 End: 07-28-2024 Patient encounter procedure 07/28/2024 1:30 PM EDT Office Visit [facility] [address] [place] [phone] Cony Garrido, DO [address] [place] [address] Arrived [facility] Comment on above: Arrived Start: 07-20-2024 Influenza vaccination Influenza Vacc ine (#1) [facility] Start: 07-01-2024 [facility] Start: 2021 Pneumococcal Vaccine : 65+ Years (1 of 1 - PCV) Pneumococcal Vaccine: 65+ Years (1 of 1 - PCV) [facility] Start: 1996 Screening for malign ant neoplasm of breast Mammogram [facility] Start: 1955 Screening for malign ant neoplasm of colon [facility] THIN PREP TIS PAP AN D HR HPV DNA THIN PREP TIS PAP AND HR HPV DNA Pathology and Cytology Routine Well woman exam with routine gynecological exam Ordered: 10/14/2024 [facility] Comment on above: Ordered: 10/14/2024 Immunizations Immunization Date Immunization Notes Care Provider Fa cility 11-25-2021 SARS-CoV-2 (COVID-19 ) mRNA BNT-162b2 vax [employer] [facility] 01-26-2021 SARS-CoV-2 (COVID-19 ) Ad26 vaccine, recombinant [employer] [facility] NEGATED: Highlighted row has not occurred!01-11-2022 influenza virus vaccine, unspecified formulation Deyanira Chan [facility] Payers Date Payer Category Payer Self-pay [id number] 2021 Private Health Insurance [id number] 2021 Unknown 2021 Unknown [id number] 1959 Unknown [id number] 1956 Unknown [id number] 2.16.84 [id number] 1956 Unknown [id number] 2.16.84 [id number] 1956 Unknown [id number] 2.16.8 [id number] 1956 Unknown [id number] 2.16.8 [id number] 1956 Unknown [id number] 2.16.84 [id number] 1956 Unknown [id number] 2.16.84 0.1.247979.3.579.2.1259 1956 Unknown [id number] 2.16.84 0.1.130795.3.579.2.1259 1956 Unknown [id number] 2.16.84 0.1.773012.3.579.2.9 1956 Unknown [id number] 2.16.84 0.1.620686.3.579.2.1259 1956 Unknown [id number] 2.16.84 0.1.293659.3.579.2.1259 1956 Unknown [id number] 2.16.84 0.1.624278.3.579.2.1259 1956 Unknown [id number] 2.16.84 [id number] Unknown [id number] Unknown [id number] 2.16.8 [id number] Unknown [id number] 2.16.8 [id number] Social History Date Type Detail Facility Tobacco smoking status WVIS Unknown if ever smoked [facility] Start: 1955 Sex Assigned At Female F [facility] Never a smoker Never a smoker -[facility] [address] Work Phone: Start: 08-03-2017 End: 03-14-2022 Tobacco smoking status Never smoked tobacco (finding) [facility] Tobacco smoking status Never [facility] Sex Assigned At Female [facility] Tobacco smoking status NHIS Tobacco smoking consumption unknown [facility] Start: 1955 Sex assigned at Not on file [facility] Start: 01-22-2025 Sex Female (finding) [facility] Goals Date Patient Goal Desired Activity /State Functional Status Date Assessment Result Facility 05-05-2024 Functional Status N/A [facility] Clinical Notes 03-14-2022 to 01-14-2025 Leticiacynthia Courtney, DEVELOPMENTAL TRAINING COUNSELOR - 01/14/2025 2:10 PM Wil Courtney, DEVELOPMENTAL TRAINING COUNSELOR - 10/14/2024 1:20 PM Humberto Carson, DEVELOPMENTAL TRAINING COUNSELOR - 07/28/2024 1:30 PM EDT Note Date & Type Note Facility 01-14-2025 History of Present illness Narrative Reason for Appointment: Patient ID: Nancy Billingsley is a 69 y.o. female who presents for Medication follow pu Patient presents today for Medication Follow Up appointment. MEDICATIONS Current Outpatient Medications Medication Instructions ARIPiprazole (ABILIFY) 2 mg, Nightly cyclobenzaprine (FLEXERIL) 10 mg, Nightly DULoxetine (CYMBALTA) 120 mg, Daily estradiol (ESTRACE) 2 g, Vaginal, Nightly, Once a day for one month and then at bedtime twice a week. etodolac (LODINE) 500 mg, 2 times daily [...] of Systems: Review of Systems Constitutional: Negative. Negative for chills and fever. HENT: Negative. Negative for sore throat. Eyes: Negative. Respiratory: Negative. Cardiovascular: Negative. Gastrointestinal: Negative. Negative for abdominal pain, constipation, diarrhea, nausea and vomiting. Genitourinary: Negative. Negative for dysuria, flank pain, frequency, hematuria, pelvic pain, urgency and vaginal discharge. Musculoskeletal: Negative. Negative for back pain. Skin: Negative. Negative for rash. Neurological: Negative. Negative for headaches. All other systems reviewed and are negative. [...] nursing note reviewed. Exam conducted with a tungsten refiner present. Vitals: Estimated body mass index is 29.52 kg/m as calculated from the following: Height as of 03/18/24: 5' 2 . Weight as of this encounter: 161 lb 6.4 oz. BP: 120/76 No LMP recorded. Patient has had a hysterectomy. ASSESSMENT & PLAN ICD-10-CM 1. Follow-up encounter involving medication Z79.899 2. Vaginal itching N89.8 3. Vaginal burning N94.89 Pt has been trying estrace cream nightly and hasn't changed symptoms. Pt states clobetasol cream is helping with vaginal irritation. Pt still having incontinence issues. Pt to be referred to Dr Paul for evaluation. Documented by Leticia Courtney LPN on behalf of: Cony Garrido DO Answers submitted by the patient for this visit: Female Genital Questionnaire (Submitted on 01/11/2025) Chief Complaint: Female genitourinary complaint genital itching: Yes genital lesions: Yes genital odor: No genital rash: No missed menses: No vaginal bleeding: No Chronicity: chronic Onset: more than 1 year ago Frequency: every several days Progression since onset: waxing and waning Pain severity: mild Affected side: both now?: No anorexia: No discolored urine: No joint pain: Yes joint swelling: No painful intercourse: Yes Aggravated by: nothing, intercourse, urinating Sexual activity: sexually active Partner with STD symptoms: no control: nothing Menstrual history: postmenopausal documented in this encounter [facility] 10-14-2024 History of Present illness Narrative Reason [...] Past Medical History: Diagnosis Date Autoimmune disease ([facility]) HISTORY PAST MEDICAL HISTORY SOCIAL HISTORY Past Medical History: Diagnosis Date Autoimmune disease ([facility]) Social History Tobacco Use Smoking status: Not [...] nursing note reviewed. Exam conducted with a tungsten refiner present. Vitals: Estimated body mass index is [...] Cony Garrido DO documented in this encounter [facility] 07-28-2024 History of Present illness Narrative Reason [...] nursing note reviewed. Exam conducted with a tungsten refiner present. Vitals: Estimated body mass index is 29.47 kg/m as calculated from the following: Height as of 24: 5' 2 . Weight as of this [...] Cony Garrido DO documented in this encounter [facility] 05-05-2024 Hospital Discharge instructions Patient Education 05/05/2024 [...] including vitamins, herbs, eye drops, creams, and rxlu-mpb-tiwfjde medicines. Any problems you or family members [...] provider tells you to take them. Taking tjgx-yyg-duuekhv medicines, vitamins, herbs, and supplements. Tests You [...] Follow these instructions at home: Medicines Take ioeg-sjh-fgmidlm and prescription medicines only as told by [...] provider. Document Revised: 07/19/2022 Document Reviewed: 06/17/2021 [employer] Patient Education 2022 [employer]. Follow Up Care 03/24/2024 15:37:07 With:Viv WALLACE MDrick R, URL Address: [facility] [address] [place] [address]- When: Unknown [facility] [place] 05-05-2024 Note Chief Complaint referral for incontinence HPI Staff Referral for incontinence by Dr. Garrido. Pt states that she had a bladder sling procedure done about 15 years at the [facility]. She states that the incontinence is [...] s/p bladder sling 15 yrs ago at [facility]. S/p hysterectomy. 1. Overflow incontinence (N39.490: Overflow incontinence) S/p bladder sling and prolapse repair 15 yrs ago at [facility] by Dr. Jimenez due to bladder prolapse. Likely had large piece of mesh placed. Pt was dry after sling. Leaking starting 5 yr ago. Leaking worsens with increased fluid intake and coffee. Tried cream through Dr. Bustos, does not recall cream. [place] it was washed away each time she voided. Then saw CT at Dr. Garrido's office due to cloudy [...] cream for #3. -Retrieve op note from [facility]. -Will schedule cysto with pelvic exam. The risks and benefits for cystoscopy have been discussed. The risks include bleeding, infection, and irritation of the bladder and urinary channel, among others. The patient, after being informed of procedural details and after questions have been answered, wishes to proceed. Full informed consent has been obtained. Will order Local anesthesia. Prophylactic abx sent to [facility]. 2. Incomplete bladder emptying (R33.9: Retention [...] past. -Start Clobetasol bid. Rx sent to [facility] [place]. 4. Dysuria (R30.0: Dysuria) Also has burning with urination which would not be caused by external irritation. Follow-up With When Contact Information Wiliam WALLACE MD, URL [facility] [address], [place] [address]- Additional Instructions: schedule cysto with pelvic exam Patient Education Cystoscopy I, Nasra Tiwari, personally scribed for Dr. Will og (more content not included)... [facility] Comment on above: Result Comment: [...] including vitamins, herbs, eye drops, creams, and xqyu-mqc-cxvtjgd medicines. ? Any problems you or family [...] tells you to take them. ? Taking dkim-jid-ivkvwyj medicines, vitamins, herbs, and supplements. Tests You [...] these instructions at home: Medicines ? Take muuw-rjs-twelyli and prescription medicines only as told by [...] the department th (more content not included)... [facility] 12-26-2022 Evaluation note Encounter Date Diagnosis Assessment Notes Dec, Vulvovaginitis (ICD-10 - N76.0) Explained prescription cream should help with irritation and itching. Discussed various brands of incontinence pads. Offered medication to help with urinary incontinence which she did not declines at this time. Also offered a referral for [employer] ) or urology for chronic incontinence which she declines as well. [facility] Other 04-26-2022 Hospital Discharge instructions Patient Education [...] Follow these instructions at home: Medicines Take vvoc-uwe-htjrxkv and prescription medicines only as told by your health care provider. If you were prescribed an antibiotic medicine, take it as told by your health care provider. Do notstop taking the antibiotic even if you start to feel better. Eating and drinking Follow any diet changes as told by your health care provider. Work with a diet and dairy nutrition specialist (dietitian) to create an eating plan [...] 11/02/2001 Document Revised: 03/31/2020 Document Reviewed: 03/31/2020 [employer] Patient Education 2019 [employer]. Follow Up Care 02/23/2022 16:00:41 With:Deyanira Chan CNP Address: When:3 months [facility] Evaluation + Plan note Future Appointments Appointment Date:06/13/2022 10:00:00 AM Scheduled Provider:Deyanira Chan CNP Location[facility] Appointment Type:[facility] Follow Up Future Scheduled Tests Radiology* XR Esophagus 03/14/22 [facility] Evaluation noteNo assessment information available [facility] Work Phone: evaluation note* Diagnosis Well woman exam with routine gynecological exam Routine gynecological examination Breast cancer screening by mammogram Postoperative examination Follow-up examination, following unspecified surgery Dyspareunia in female [facility] Encounter to discuss test results Other specified counseling Vaginal itching Pruritus of genital organs Vaginal lesion Other specified noninflammatory disorder of vagina [facility] Diagnosis Follow-up encounter involving medication Vaginal itching Pruritus of genital organs Vaginal burning Other specified symptom associated with female genital organs [facility] [...] surgery 08/2017 Hospitalization History SEE SURGICAL HX [facility] Other Hospital course Narrative No data available for this section [facility] Hospital Discharge instructions No data available for this section [facility] Progress note No data available for this section [facility] Summary Purpose Family History [...] is getting better perhaps we can watch rzve-sny-vjo. If she is not getting better, I will likely need to get an MRI so that we can evaluate further. Chief Complaint and Reason for Visit Chief Complaint Admit Date R95.8 January 22, 2025 8:15 am Additional Source Comments INFORMATION SOURCE (unrecogn ized section and content) DATE CREATED AUTHOR 05/14/2018 [facility] DATE CREATED AUTHOR AUTHOR'S ORGANIZ ATION 05/06/2021 [employer] DATE CREATED AUTHOR AUTHOR'S ORGANIZ ATION 05/10/2021 [facility] DATE CREATED AUTHOR AUTHOR'S ORGANIZ ATION 04/13/2022 [facility] [place] [facility] DATE CREATED AUTHOR AUTHOR'S ORGANIZ ATION 08/30/2024 [facility] DATE CREATED AUTHOR AUTHOR'S ORGANIZ ATION 01/16/2025 [facility]ical [facility] DATE CREATED AUTHOR AUTHOR'S ORGANIZ ATION 01/29/2025 [facility] Care Team (unrecognized sect ion and content) Team Status: Inactive Member Role Status Dates Cony Garrido DO Attending Provider Active Start : July 01, 2024 End: July 01, 2024 Team Status: Active Member Role Status Dates Cristopher Chang DO Primary Care Provider Active Team Status: Inactive Member Role Status Dates Cony Garrido DO Attending Provider Active Start : January 22, 2025 End: January 22, 2025 Cristopher Chang DO Primary Care Provider Active Start: January 22, 2025 End: January 22, 2025 REASON FOR VISIT (unrecogniz ed section and content) Reason Comments Well Women Visit Reason Comments Biospy follow up Reason Comments Medication follow pu Goals (unrecognized section and content) Goals may [...] BE BASED ON THE PRIMARY CLINICAL RECORDS. [employer] [facility]. provides no warranty or guarantee of the accuracy or completeness of information in this document.
[2025-02-09 10:21] LABS: Basophils Percent Auto 0.7 % (0.2-2.0); Eosinophils Absolute Auto 0.1 10^3/uL (0.0-0.7); Eosinophils Percent Auto 1.2 % (0.9-7.0); Hematocrit 38.4 % (36.0-48.0); Hemoglobin 12.7 g/dL (12.0-16.0); Lymphocytes Absolute Auto 1.1 10^3/uL (1.2-3.8); Mean Corpuscular HGB Conc 33.1 g/dL (29.9-35.2); Mean Corpuscular Hemoglobin 31.7 pg (26.7-34.0); Mean Corpuscular Volume 95.8 fL (81.0-99.0); Mean Platelet Volume 8.9 fL (9.5-13.5); Monocytes Absolute Auto 0.5 10^3/uL (0.3-0.8); Monocytes Percent Auto 11.7 % (1.7-12.0); Neutrophils Absolute Auto 2.5 10^3/uL (1.4-6.5); Neutrophils Percent Auto 60.4 % (43.0-75.0); Platelet Count 275 10^3/uL (150-450); Red Blood Count 4.01 10^6/uL (4.20-5.40); Red Cell Distribution Width 12.7 % (11.0-15.0); White Blood Count 4.1 10^3/uL (4.0-11.0)
[2025-02-09 10:30] LABS: Bilirubin Urine LARGE (NEGATIVE); Blood Urine NEGATIVE (NEGATIVE); Clarity Urine CLEAR (CLEAR); Color Urine LT. YELLOW (YELLOW); Glucose Urine UA NEGATIVE (NEGATIVE); Ketones Urine NEGATIVE (NEGATIVE); Leukocyte Esterase Urine TRACE (NEGATIVE); Nitrite Urine NEGATIVE (NEGATIVE); Protein Urine NEGATIVE (NEG/TRACE); Specific Gravity Urine 1.015 (1.005-1.025); Urobilinogen Urine 0.2 EU/dL (0.2-1.0); pH Urine 5.5 (5.0-9.0)
[2025-02-09 10:33] LABS: Erythrocyte Sedimentation Rate 16 mm/hr (<=30)
[2025-02-09 10:36] LABS: Bacteria Urine TRACE #/HPF (NONE SEEN); Cast Seen? NONE SEEN #/LPF (NONE SEEN); Crystals Seen? None Seen #/HPF (None Seen); Mucus Urine NONE SEEN (NONE SEEN); RBC Urine 0-2 #/HPF (0-2); Squamous Epithelial Cell Urine FEW #/LPF (NONE/RARE); WBC Urine 0-2 #/HPF (NONE SEEN)
[2025-02-09 10:44] LABS: Alanine Aminotransferase 26 U/L (14-59); Albumin Globulin Ratio 0.9; Albumin Level 3.5 g/dL (3.4-5.0); Alkaline Phosphatase 93 U/L (46-116); Anion Gap 13.8; Aspartate Amino Transferase 20 U/L (15-37); BUN Creatinine Ratio 20.8; Bilirubin Total 0.4 mg/dL (0.2-1.0); Calcium 9.4 mg/dL (8.5-10.1); Carbon Dioxide 26.3 mmol/L (21.0-32.0); Chloride 103 mmol/L (98-107); Estimated GFR (African America >60 (>=60 mL/min/1.73m^2); Estimated GFR (Non-African Ame 55 (>=60 mL/min/1.73m^2); Globulin 3.8 g/dL; Glucose 117 mg/dL (74-106); Potassium 4.1 mmol/L (3.5-5.1); Sodium 139 mmol/L (136-145); Total Protein 7.3 g/dL (6.4-8.2)
[2025-02-10 04:08] LABS: Complement C3, Serum 136 mg/dL (82-167); Complement C4, Serum 22 mg/dL (12-38)
[2025-02-10 16:12] LABS: Complement, Total (CH50) >60 U/mL (>41)
== END 2025-02-09 09:57 | disposition home or self-care (01) ==
LOC: LAB 09:56
PROVIDERS: PCP Family Medicine; Visit Provider Internal Medicine Rheumatology
DX: E55.9 Vitamin D deficiency, unspecified (principal); M15.0 Primary generalized (osteo)arthritis; M36.8 Systemic disorders of connective tissue in other diseases classified elsewhere; Z79.899 Other long term (current) drug therapy
CPT/HCPCS: 36415; 80053; 81001; 82306; 85025; 85652; 86160; 86162

== ENCOUNTER 2025-08-11 08:27 | Outpatient (OUT) | payer OTHER, SELFPAY ==
--- OUTSIDE RECORDS SUMMARY | 2025-08-11 08:34 | XMS_ITS | CCD ---
Author Organization [facility] CliniSyut Care Team Providers Care [employer] Name Role Phone Flavio Diazolas Lorraine Unavailable Unavailable Cristopher Chang Unavailable UnavailCristopher Vivas Unavailable UnavailCristopher Vivas Unavailable Unavailable Unavailable CRISTOPHER CHANG Primary Care Physician [phone] ALEXANDRE, DR ROMERO Attending Unavailable TIMMIS, DR ROMERO Consulting Unavailable BUSTOS, DR SAMANTHA Martinez Primary Care Unavailable TIMWINNIE, DR ROMERO Admitting Unavailable BERNARDO, DR YOST Referring Unavailable PARAMOUNT, DR RAHUL Espinoza Consulting Unavailable DELLA, DR [...] Attending Unavailable Cony Garrido DO Attending Provider Cristopher Chang DO Primary Care Provider [phone] Cony Garrido Attending Unavailable Cony Garrido Admitting Unavailable Cony Garrido Attending Unavailable Cristopher Chang Primary Care Unavailable Cony Garrido Admitting Unavailable Unavailable Unavailable Unavailable Allergies Allergy Classification Reported Allergen(s) Allergy Type Date of Onset Reaction(s) Facility (1 source) No Known Medication Allergies; Translations: [No Known Medication Allergies] Propensity to adverse reactions (disorder) [facility] Repository Medications Current Medications Medication Drug Class(es) Dates Sig (Normalized) Sig (Original) acetaminophen 325 mg / HYDROcodone bitartrate 5 mg oral tablet (3 sources) Opioid Agonist Start: 08-20-2017 take 1 tablet by mouth every four to six hours as needed for pain Hydrocodone-Aceta minophen ([place]) 5-325 mg tablet Active 1 - 2 [...] g 11 10/14/2024 10/14/2025 Active estrogens, conjugated (group home) 0.625 mg/ml vaginal cream (3 sources) Estrogen [...] completed, # 2 tab(s), Refills(s) 0, Pharmacy: [facility] 1155, 158, cm, 05/05/24 10:21:00 EDT, [...] 04-11-2022 Chronic Other aftercare (1 source) 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; 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] Onset: 04-13-2022 Episodic Other [...] 0 01-22-2025 MM special view RT w/CAD [facility] [address] [place] [address] Mammography Report Signed Patient: Nancy Billingsley V MR#: [id number] : 1955 Acct:[id number] Age/Sex: 69 / F Adm Date: 01/22/25 Loc: [place] Room: Type: [facility] Attending Dr: Cony Garrido DO Ordering Provider: Cony Garrido Date of Service: 01/22/25 Procedure(s): MM special view RT w/CAD Accession Number(s): ([id number]) MM/MM special view RT w/CAD: R92.8 Copies [...] Langley Jr., D.OParisa01/22/2025 9:14 AM Dictation Location: [facility] Dictated By: Carlos Langley Jr, DO 01/22/25908 Signed By: 01/22/25 0914 Normal [facility] Mammography reportOrdered By : Carlos Langley on 01-22-2025 Diagnostic imaging study [facility] [address] [place] [address] Mammography Report Signed Patient: Nancy Billingsley V MR# : [id number] : 1955 Acct:[id number] Age/Sex: 69 / F Adm Date: 5 Loc: [place] Room: Type: [facility] Attending Dr: Cony Garrido DO Ordering Provider: Cony Garrido Date of Service: 01/22/25 Procedure(s): MM special view RT w/CAD Accession Number(s): ([id number]) MM/MM special view RT w/CAD: R92.8 Copies [...] Langley Jr., D.O.01/22/2025 9:14 AM Dictation Location: [facility] Dictated By: Carlos Langley Jr DO 01/22/25 0909 Signed By: 01/22/25 0914 [facility] MM TOMOSYNTHESIS SCREENING B Ion 01-14-2025 [place] [address] Mammography Report Signed Patient: NANCY BILLINGSLEY V MR#: [id number] : 1955 Acct:[id number] Age/Sex: 69 / F ADM Date: 01/14/25 Loc: MAMMO Attending Dr: Cony Garrido D.O. Ordering Physician: Cony Garrido D.O. Results: Date of Service: 01/14/25 Follow Up: Procedure(s): MM tomosynthesis screening BI Accession Number(s): [id number] cc: Samantha Bustos M.D.; Cony Garrido D.O. Patient Name: NANCY BILLINGSLEY MR#: [id number] : 1955 Exam Date: 01/14/2025 Ordering Doctor: [...] bladder cancer at age 51. LOCATION: [facility] BREAST COMPOSITION: The breasts are heterogeneously [...] Signed By: 01/14/25 1155 DD/ 1154 TD/TT: Service Architect: [facility] Radiology, Radiologi MD kevin - 01/14/2025 [place] [address] Mammography Report Signed Patient: NANCY BILILNGSLEY V MR#: [id number] : 1955 Acct:[id number] Age/Sex: 69 / F ADM Date: 01/14/25 Loc: MAMMO Attending Dr: Cony Garrido D.O. Ordering Physician: Cony Garrido D.O. Results: Date of Service: 01/14/25 Follow Up: Procedure(s): MM tomosynthesis screening BI Accession Number(s): [id number] cc: Samantha Bustos M.D.; Cony Garrido D.O. Patient Name: NANCY BILLINGSLEY MR#: [id number] : 1955 Exam Date: 01/14/2025 Ordering Doctor: [...] bladder cancer at age 51. LOCATION: [facility] BREAST COMPOSITION: The breasts are heterogeneously [...] Signed By: 01/14/25 1155 DD/ 1154 TD/TT: Service Architect: [facility] Radiology Study observation (narrative) [facility] MM TOMOSYNTHESIS SCREENING B IOrdered By: Radiologist Radiology on 01-14-2025 [facility] [employer] Work Phone: IGP,APTIMA HPV,AGE GDLNon AGE GDLN ACOG TESTING Note . [facility] Comment on above: TESTS RESULT FLAG UNITS REF RANGE LAB Clinician Provided Cytology Information Source.............Vagina No. of containers..01 ThinPrep Vial Age Algo ACOG [place]... Note 01 <21 or >65 or no age provided FLAG LEGEND: L-Low Normal,H-High Normal,LL-Alert Low,HH-Alert High <-Panic Low,>-Panic High,A-Abnormal,AA-Critical Abnormal Performed at: 01 =G [facility] [address] [facility] [place] [address] Fabiana Epstein MD, PAP IG (IMAGE GUIDED) Note . [facility] Comment on above: TESTS RESULT FLAG UNITS REF RANGE LAB DIAGNOSIS: 02 NEGATIVE FOR INTRAEPITHELIAL LESION OR MALIGNANCY. CELLULAR CHANGES ASSOCIATED WITH ATROPHY ARE PRESENT. Specimen adequacy: 02 Satisfactory for evaluation. Performed by: 02 Bri Melo, [place] ([facility]) . 02 Note: Note 03 The Pap [...] High,A-Abnormal,AA-Critical Abnormal Performed at: 02 KENYA [facility] [address] [place] [address] Alexis Fuentes PhD, 03 WB [facility] [address] [place] [address] Fabiana Epstein MD, Performed at: =G - [facility] [address] [place], [place] [id number] [employer]: Fabiana Epstein MD, Phone: [phone] Performed at: [place] - [facility] [address], [place] [id number] [employer]: Alexis Fuentes PhD, Phone: [phone] SPATULA-ALONE VAGINA [facility] Pathology Request for Lab Co rpon 07-01-2024 Pathology Request for Lab Todd Normal [facility] Comment on above: Order Comment: PATHOLOGY MUSEUM SERVICE SCHEDULER SPECIMEN Result Comment: See report. Scanned copy available in EMR. PERFORMED BY: [place] [id number] PATHOLOGIST FAMILY MEDICINE RESIDENT CHELSEA CALL M.D. Performed By: #### P ATH TO [facility] #### [address] Auth for Release of Medical Recordson 05-06-2024 Auth for Release of Medical Records [id number]#1.00TIFF Normal [facility] Consent for Procedure/Surger yon 05-06-2024 Consent for Procedure/Surger y [id number]#1.00TIFF Normal [facility] Formson 05-06-2024 Forms [id number]#1.00TIFF Normal [facility] Physician Referralon 024 Physician Referral [id number]#1.00TIFF Normal [facility] Ambulatory Visit Summaryon 0 05-05-2024 Ambulatory [...] Where: [facility] [address] [place] [address]- Medications What How Much When Instructions Unchanged [...] for choosing us for your care. Normal [facility] C3 and C4 COMPLEMENTon 04-12 Complement C3, Serum 144 mg/dL Normal 82-167 [facility] Comment on above: Performed By: #### CSUITE #### [facility] [address] [address] [address] Will Stroud Complement C4, Serum 31 mg/dL Normal 12-38 [facility] Comment on above: Performed By: #### CSUITE #### [facility] [address] [place] [address] Dr. Will Stroud COMPLEMENT TOTAL (CH50)on Complement, Total (CH50) >60 Normal >41 [facility] Comment on above: Result Comment: Age [...] values. Performed By: #### C H50T #### [facility] [address] [place] [address] Dr. Will Stroud CBC AUTO DIFFon 04-11-2022 BASO # 0.0 103/ul Normal 0.0-0.1 [facility] Comment on above: Performed By: #### CBC #### [facility] [address] [place] [address] Dr. Will Stroud Basophils/100 WBC (Bld) 0.9 % Normal 0.2-2.0 [facility] Comment on above: Performed By: #### CBC #### [facility] [address] [place] [address] Dr. Will Stroud EO # 0.1 103/ul Normal 0.0-0.7 [facility] Comment on above: Performed By: #### CBC #### [facility] [address] [place] [address] Dr. Will Stroud Eosinophils/100 WBC (Bld) 1.7 % Normal 0.9-7.0 [facility] Comment on above: Performed By: #### CBC #### [facility] [address] [place] [address] Dr. Will Stroud Erythrocyte distribution width (RBC) [Ratio] 12.4 % Normal 11.0-15.0 [facility] Comment on above: Performed By: #### CBC #### [facility] [address] [place] [address] Dr. Will Stroud Hematocrit (Bld) [Volume fraction] 41.3 % Normal 36.0-48.0 [facility] Comment on above: Performed By: #### CBC #### [facility] [address] [place] [address] Dr. Will Stroud Hemoglobin (Bld) [Mass/Vol] 13.5 g/dL Normal 12.0-16.0 [facility] Comment on above: Performed By: #### CBC #### [facility] [address] [place] [address] Dr. Will Stroud IG # 0.00 10e3/ul Normal 0.00-0.03 [facility] Comment on above: Performed By: #### CBC #### [facility] [address] [place] [address] Dr. Will Stroud IG % 0.0 % Normal 0.0-0.5 [facility] Comment on above: Performed By: #### CBC #### [facility] [address] [place] [address] Dr. Will Stroud LYMPH # 1.3 103/ul Normal 1.2-3.8 [facility] Comment on above: Performed By: #### CBC #### [facility] [address] [place] [address] Dr. Will Stroud Lymphocytes/100 WBC (Bld) 29.6 % Normal 20.5-60.0 [facility] Comment on above: Performed By: #### CBC #### [facility] [address] [place] [address] Dr. Will Stroud MANUAL DIFF REQ NO Normal [facility] Comment on above: Performed By: #### CBC #### [facility] [address] [place] [address] Dr. Will Stroud MCH (RBC) [Entitic mass] 31.1 pg Normal 26.7-34.0 [facility] Comment on above: Performed By: #### CBC #### [facility] [address] [place] [address] Dr. Will Stroud MCHC (RBC) [Mass/Vol] 32.7 g/dL Normal 29.9-35.2 [facility] Comment on above: Performed By: #### CBC #### [facility] [address] [place] [address] Dr. Will Stroud MCV (RBC) [Entitic vol] 95.2 fL Normal 81.0-99.0 [facility] Comment on above: Performed By: #### CBC #### [facility] [address] [address] [address] Will Stroud MONO # 0.5 103/ul Normal 0.3-0.8 [facility] Comment on above: Performed By: #### CBC #### [facility] [address] [place] [address] Dr. Will Stroud Monocytes/100 WBC (Bld) 11.4 % Normal 1.7-12.0 [facility] Comment on above: Performed By: #### CBC #### [facility] [address] [place] [address] Dr. Will Stroud NEUT # 2.4 103/ul Normal 1.4-6.5 [facility] Comment on above: Performed By: #### CBC #### [facility] [address] [place] [address] Dr. Will Stroud Neutrophils/100 WBC (Bld) 56.4 % Normal 43.0-75.0 [facility] Comment on above: Performed By: #### CBC #### [facility] [address] [place] [address] Dr. Will Stroud Platelet mean volume (Bld) [Entitic vol] 8.6 fL Critically low 9.5-13.5 [facility] Comment on above: Performed By: #### CBC #### [facility] [address] [place] [address] Dr. Will Stroud PLT 237 103/ul Normal 150-450 [facility] Comment on above: Performed By: #### CBC #### [facility] [address] [place] [address] Dr. Will Stroud RBC 4.34 106/ul Normal 4.20-5.40 [facility] Comment on above: Performed By: #### CBC #### [facility] [address] [place] [address] Dr. Will Stroud WBC 4.2 103/ul Normal 4.0-11.0 [facility] Comment on above: Performed By: #### CBC #### [facility] [address] [place] [address] Dr. Will Stroud PROF 14(COMP METB)on 022 Albumin [Mass/Vol] 3.8 g/dL Normal 3.4-5.0 [facility] Comment on above: Performed By: #### CMP #### [facility] [address] [place] [address] Dr. Will Stroud Albumin/Globulin [Mass ratio] 1.0 {ratio} Normal [facility] Comment on above: Performed By: #### CMP #### [facility] [address] [place] [address] Dr. Will Stroud ALP [Catalytic activity/Vol] 110 U/L Normal 46-116 [facility] Comment on above: Performed By: #### CMP #### [facility] [address] [place] [address] Dr. Will Stroud ALT [Catalytic activity/Vol] 33 U/L Normal 14-59 [facility] Comment on above: Performed By: #### CMP #### [facility] [address] [place] [address] Dr. Will Stroud Anion gap [Moles/Vol] 11.8 mmol/L Normal [facility] Comment on above: Performed By: #### CMP #### [facility] [address] [place] [address] Dr. Will Stroud AST [Catalytic activity/Vol] 21 U/L Normal 15-37 [facility] Comment on above: Performed By: #### CMP #### [facility] [address] [place] [address] Dr. Will Stroud Bilirubin [Mass/Vol] 0.4 mg/dL Normal 0.2-1.0 [facility] Comment on above: Performed By: #### CMP #### [facility] [address] [place] [address] Dr. Will Stroud Calcium [Mass/Vol] 9.0 mg/dL Normal 8.5-10.1 [facility] Comment on above: Performed By: #### CMP #### [facility] [address] [place] [address] Dr. Will Stroud Chloride [Moles/Vol] 102 mmol/L Normal 98-107 [facility] Comment on above: Performed By: #### CMP #### [facility] [address] [place] [address] Dr. Will Stroud CO2 [Moles/Vol] 29.3 mmol/L Normal 21.0-32.0 [facility] Comment on above: Performed By: #### CMP #### [facility] [address] [place] [address] Dr. Will Stroud Creatinine [Mass/Vol] 0.86 mg/dL Normal 0.55-1.02 [facility] Comment on above: Performed By: #### CMP #### [facility] [address] [place] [address] Dr. Will Stroud EGFR-AF CHILEAN >60 Normal >=60 [facility] Comment on above: Performed By: #### CMP #### [facility] [address] [place] [address] Dr. Will Stroud EGFR-NON AF CHILEAN >60 Normal >=60 [facility] Comment on above: Performed By: #### CMP #### [facility] [address] [place] [address] Dr. Will Stroud Globulin (S) [Mass/Vol] 3.8 g/dL Normal [facility] Comment on above: Performed By: #### CMP #### [facility] [address] [place] [address] Dr. Will Stroud Glucose [Mass/Vol] 106 mg/dL Normal 74-106 [facility] Comment on above: Performed By: #### CMP #### [facility] [address] [place] [address] Dr. Will Stroud Potassium [Moles/Vol] 4.1 mmol/L Normal 3.5-5.1 [facility] Comment on above: Performed By: #### CMP #### [facility] [address] [place] [address] Dr. Will Stroud Protein [Mass/Vol] 7.6 g/dL Normal 6.4-8.2 [facility] Comment on above: Performed By: #### CMP #### [facility] [address] [place] [address] Dr. Will Stroud Sodium [Moles/Vol] 139 mmol/L Normal 136-145 [facility] Comment on above: Performed By: #### CMP #### [facility] [address] [place] [address] Dr. Will Stroud Urea nitrogen [Mass/Vol] 15.0 mg/dL Normal 7.0-18.0 [facility] Comment on above: Performed By: #### CMP #### [facility] [address] [place] [address] Dr. Will Stroud Urea nitrogen/Creatin ine [Mass ratio] 17.4 mg/mg Normal [facility] Comment on above: Performed By: #### CMP #### [facility] [address] [place] [address] Dr. Will Stroud [facility] 6 mm/hr Normal <=30 [facility] Comment on above: Performed By: #### SEDR #### [facility] [address] [place] [address] Dr. Will Stroud UA RANDOM W/MICROSCOPICon BACTERIA NONE SEEN Normal NONE SEEN [facility] Comment on above: Performed By: #### UAMIC #### [facility] [address] [place] [address] Dr. Will Stroud Bilirubin Ql (U) Negative Normal NEGATIVE [facility] Comment on above: Performed By: #### UAMIC #### [facility] [address] [place] [address] Dr. Will Stroud CAST NONE SEEN Normal NONE SEEN [facility] Comment on above: Performed By: #### UAMIC #### [facility] [address] [place] [address] Dr. Will Stroud Clarity (U) CLEAR Normal CLEAR [facility] Comment on above: Performed By: #### UAMIC #### [facility] [address] [place] [address] Dr. Will Stroud Color (U) LT. YELLOW Normal YELLOW [facility] Comment on above: Performed By: #### UAMIC #### [facility] [address] [place] [address] Dr. Will Stroud Crystals LM Nom (Urine sed) NONE SEEN Normal NONE SEEN [facility] Comment on above: Performed By: #### UAMIC #### [facility] [address] [place] [address] Dr. Will Stroud Epithelial cells LM Ql (Urine sed) RARE Normal NONE SEEN /RARE [facility] Comment on above: Performed By: #### UAMIC #### [facility] [address] [place] [address] Dr. Will Stroud Glucose Ql (U) Negative Normal NEGATIVE [facility] Comment on above: Performed By: #### UAMIC #### [facility] [address] [place] [address] Dr. Will Stroud Hemoglobin Ql (U) Negative Normal NEGATIVE [facility] Comment on above: Performed By: #### UAMIC #### [facility] [address] [place] [address] Dr. Will Stroud Ketones Ql (U) Negative Normal NEGATIVE [facility] Comment on above: Performed By: #### UAMIC #### [facility] [address] [place] [address] Dr. Will Stroud LEUKOCYTES SMALL Abnormal NEGATIVE [facility] Comment on above: Performed By: #### UAMIC #### [facility] [address] [place] [address] Dr. Will Stroud MUCOUS NONE SEEN Normal NONE SEEN [facility] Comment on above: Performed By: #### UAMIC #### [facility] [address] [place] [address] Dr. Will Stroud Nitrite Ql (U) Negative Normal NEGATIVE [facility] Comment on above: Performed By: #### UAMIC #### [facility] [address] [place] [address] Dr. Will Stroud pH (U) 6.5 [pH] Normal 5-9 [facility] Comment on above: Performed By: #### UAMIC #### [facility] [address] [place] [address] Dr. Will Stroud RBC NONE SEEN Abnormal 0-2 [facility] Comment on above: Performed By: #### UAMIC #### [facility] [address] [place] [address] Dr. Will Stroud SPEC GRAVITY <=1.005 Abnormal 1.005-<=1.02 5 [facility] Comment on above: Performed By: #### UAMIC #### [facility] [address] [place] [address] Dr. Will Stroud UA PROTEIN Negative Normal NEGATIVE/ TRACE [facility] Comment on above: Performed By: #### UAMIC #### [facility] [address] [place] [address] Dr. Will Stroud Urobilinogen Qn (U) 0.2 {Fausto'U}/dL Normal 0.2 - 1.0 [facility] Comment on above: Performed By: #### UAMIC #### [facility] [address] [place] [address] Dr. Will Stroud WBC 0-2 Abnormal NONE SEEN [facility] Comment on above: Performed By: #### UAMIC #### [facility] [address] [place] [address] Dr. Will Stroud XR ESOPHAGUSon 11-18-2021 XR [...] by: RAHUL DOVE Date: 2021-11-18 12:29 Normal [facility] SPINE, LUMBOSACRAL; MIN 4 VIEWSon 05-04-2021 BN SPINE, LUMBOSACRAL; MIN 4 VIEWS Patient Name: NANCY BILLINGSLEY STUDY: SPINE, LUMBOSACRAL MIN 4 VIEWS INDICATION: AP/LAT FLEX & EXT. COMPARISON: October 25, 2017 ACCESSION NUMBER(S): [id number] ORDERING CLINICIAN: IAN DIAZ FINDINGS: L4-5 laminectomy and posterior fusion with pedicle screws at L5-S1. Hardware satisfactory. Alignment unchanged with anterolisthesis L5 on S1. No pathologic motion seen. IMPRESSION: Status post lower lumbar laminectomy with L5-S1 posterior fusion, unchanged in appearance without evidence of complication. Electronically signed by: KARIN AGARWAL MD Normal [facility] No Panel Informationon 05-04 Please click on the link to view the study images Normal [facility] [employer] [address] Work Phone: Office Visiton 05-04-2021 Follow-up [...] is getting better perhaps we can watch [id number]. If she is not getting better, I [...] is getting better perhaps we can watch [id number]. If she is not getting better, I [...] physical therapy (more content not included)... Normal [facility] SPINE, LUMBOSACRAL; MIN 4 [facility] 10-25-2017 SPINE, LUMBOSACRAL; MIN 4 VIEWS Name: [...] laminectomy change. No distinct hardware complication isevident. Pdhn-xh-xxqqjtic multilevel degenerative changes seen of thevisualized spine. IMPRESSION:1. Grade 1 anterolisthesis of L 5 on S 1.2. Surgical and degenerative changes discussed above.Electronically signed by: ROSALBA JACOBO MD [place] Vital Signs Date Time Vital Sign Value Performing Clinician Facility 01-14-2025 14:13-0500 Body mass index (BMI) [Ratio] 29.52 kg/m2 Cony Hema DO Work Phone: [facility] 01-14-2025 14:13-0500 Body weight 73.21 kg Cony Hema DO Work Phone: [facility] 01-14-2025 14:13-0500 Diastolic blood pressure 76 mm[Hg] Cony Hema DO Work Phone: [facility] 01-14-2025 14:13-0500 Systolic blood pressure 120 mm[Hg] Cony Hema DO Work Phone: [facility] 10-14-2024 13:55-0500 Body mass index (BMI) [Ratio] 29.41 kg/m2 Cony Hema DO Work Phone: [facility] 10-14-2024 13:55-0500 Body weight 72.94 kg Cony Hema DO Work Phone: [facility] 10-14-2024 13:55-0500 Diastolic blood pressure 70 mm[Hg] Cony Hema DO Work Phone: [facility] 10-14-2024 13:55-0500 Systolic blood pressure 110 mm[Hg] Cony Hema DO Work Phone: [facility] 07-28-2024 13:46-0400 Body mass index (BMI) [Ratio] 29.47 kg/m2 Cony Hema DO Work Phone: [facility] 07-28-2024 13:46-0400 Body weight 73.08 kg Cony Hema DO Work Phone: [facility] 07-28-2024 13:46-0400 Diastolic blood pressure 70 mm[Hg] Cony Hema DO Work Phone: [facility] 07-28-2024 13:46-0400 Systolic blood pressure 130 mm[Hg] Cony Hema DO Work Phone: [facility] 05-05-2024 10:14-0400 Blood Pressure Location Wiliam WALLACE [facility] 05-05-2024 10:14-0400 Body temperature 98.6 [degF] Wiliam WALLACE [facility] 05-05-2024 10:14-0400 Diastolic blood pressure 85 mm[Hg] Wiliam WALLACE [facility] 05-05-2024 10:14-0400 Heart rate 87 /min Wiliam WALLACE [facility] 05-05-2024 10:14-0400 Respiratory rate 16 /min Wiliam WALLACE [facility] 05-05-2024 10:14-0400 Systolic blood pressure 138 mm[Hg] Wiliam WALLACE [facility] 12-26-2022 12:30-0500 Body height 154.94 cm Samantha Bustos Other [employer] [facility] [employer] Other 12-26-2022 12:30-0500 Body mass index (BMI) [Ratio] 30.23 kg/m2 Samantha Bustos Other [employer] Other 12-26-2022 12:30-0500 Body weight 72.58 kg Samantha Bustos Other [employer] Other 12-26-2022 12:30-0500 Diastolic blood pressure 100 mm[Hg] Samantha Bustos Other [employer] Other 12-26-2022 12:30-0500 SaO2% (BldA) [Mass fraction] 97 % Samantha Bustos Other [employer] Other 12-26-2022 12:30-0500 Systolic blood pressure 142 mm[Hg] Samantha Bustos Other [employer] Other 03-14-2022 13:01-0400 Blood Pressure Location Deyanira Chan [facility] 03-14-2022 13:01-0400 Body temperature 98.06 [degF] Deyanira Chan [facility] 03-14-2022 13:01-0400 Diastolic blood pressure 76 mm[Hg] Deyanira Chan [facility] 03-14-2022 13:01-0400 Heart rate 87 /min Deyanira Chan [facility] 03-14-2022 13:01-0400 SaO2% (BldA) [Mass fraction] 99 % Deyanira Chan [facility] 03-14-2022 13:01-0400 Systolic blood pressure 136 mm[Hg] Deyanira Chan [facility] Encounters Encounter Date Encounter Type Care Provider Facility Start: 01-22-2025 End: 01-22-2025 Patient encounter procedure Cristopher Ball DO Work Phone: [facility] Work Phone: Start: 01-22-2025 End: 01-22-2025 ambulatory Cristopher Ball DO Work Phone: [facility] Work Phone: Start: 01-14-2025 End: 01-14-2025 Office [...] Start: 10-14-2024 End: 10-14-2024 Bamboo flowsheet Cony Ehma DO Work Phone: [facility] Start: [...] Available Start: 07-28-2024 End: 07-28-2024 Bamboo flowsheet Coyn Hema DO Work Phone: [facility] Start: 07-28-2024 End: 07-28-2024 Bamboo flowsheet Cony Hema DO Work Phone: [facility] Start: 07-28-2024 End: 07-28-2024 Office outpatient visit 15 minutes Cony Hema DO Work Phone: [facility] Comment on above: Encounter to discuss test results; Vaginal itching; Vaginal lesion Start: 07-28-2024 End: 07-28-2024 ambulatory CONY HEMA Not Available Start: 07-01-2024 End: 07-01-2024 ambulatory Cony Hema [facility] Work Phone: Start: 07-01-2024 End: 07-01-2024 Departed Referred DO Cony Hema Work Phone: [facility] [place] [facility] Start: 07-01-2024 End: 07-01-2024 ambulatory CONY HEMA Not Available Start: 06-18-2024 End: 06-18-2024 ambulatory RALPH ANDRIA Not Available Start: 06-10-2024 End: 06-10-2024 ambulatory RALPH ANDRIA Not Available Start: 05-19-2024 End: 05-19-2024 ambulatory Wiliam WALLACE Facility:[id number] Start: 05-05-2024 End: 05-05-2024 ambulatory Wiliam WALLACE Facility:[facility] [place] Start: 05-05-2024 End: 05-05-2024 Patient encounter procedure Wiliam WALLACE [facility] Start: 04-07-2024 End: 04-07-2024 ambulatory RALPH AYERS Not Available Start: 03-21-2024 ambulatory Wiliam WALLACE Facility :[facility] [place] Start: 03-18-2024 End: 03-18-2024 ambulatory RALPH AYERS Not Available Start: 12-26-2022 End: 12-26-2022 ambulatory Samantha Bustos Other [employer] Other Start: 12-26-2022 Office outpatient vi sit 15 minutes Samantha Bustos [facility] Start: 08-17-2022 End: 08-17-2022 Patient encounter procedure Trudi MCCANN [facility] Start: 07-11-2022 Chart Update Cristopher lawrence Work Phone: [facility] Work Phone: Start: 04-11-2022 End: 04-12-[address] CHERELLE HULL Facility:[facility] Start: 03-14-2022 End: 03-14-2022 Patient encounter procedure Deyanira Carleen Chan [facility] Start: 11-18-2021 End: 11-19-[address] HEATHER SCHROEDER Facility:[facility] Start: 05-04-2021 Office outpatient vi sit 15 minutes Cristopher Juan Bernardo Work Phone: [id number] Work Phone: Start: 10-25-2017 Ambulatory Ian Diaz Fac ility:[facility] Medical Building Procedures Date [...] for malign ant neoplasm of breast Mammogram [facility] Start: 10-27-2025 End: 10-27-2025 Patient encounter procedure 10/27/2025 2:00 PM EST Office Visit [facility] [address] [place] [address] Cony Garrido, DO [address] [place] [address] [facility] Start: 01-14-2025 End: 01-14-2025 Patient encounter procedure 01/14/2025 2:10 PM EST Office [facility] [address] [place] [phone] Cony Garrido, DO [address] [place] [address] [facility] Start: 11-04-2024 End: 11-04-2024 Patient encounter procedure 11/04/2024 1:20 PM EST Office Visit [facility] [address] [phone] Cony Garrido, DO [address] [place] [address] [facility] Start: 10-14-2024 End: 10-14-2025 DXA Skeletal system Views for bone density DEXA bone density Imaging Routine Postoperative examination Expected: 10/14/2024 (Approximate), Expires: 10/14/2025 [facility] Comment on above: Expected: 10/14/2024 (Approximate), Expires: 10/14/2025 Start: 10-14-2024 End: 12-14-2025 MG Breast - bilateral Screening Bilateral screening mammogram Imaging Routine Breast cancer screening by mammogram Expected: 10/14/2024, Expires: 12/14/2025 [facility] Work Phone: Comment on above: Expected: 10/14/2024 , Expires: 12/14/2025 Start: 09-02-2024 End: 09-02-2024 Patient encounter procedure 09/02/2024 10:10 AM EDT Office Visit [facility] [address] [phone] Cony Garrido, DO [address] [place] [address] [facility] Start: 07-28-2024 End: 07-28-2024 Patient encounter procedure 07/28/2024 1:30 PM EDT Office Visit [facility] [address] [phone] Cony Garrido, DO [address] [place] [address] Arrived [facility] Comment on above: Arrived Start: 07-20-2024 Influenza vaccination Influenza Vacc ine (#1) [facility] Start: 07-01-2024 [facility] Start: 2021 Pneumococcal Vaccine : 65+ Years (1 of 1 - PCV) Pneumococcal Vaccine: 65+ Years (1 of 1 - PCV) [facility] Start: 1996 Screening for malign ant neoplasm of breast Mammogram [facility] Start: 1955 Screening for malign ant neoplasm of colon [facility] THIN PREP TIS PAP AN D HR HPV DNA THIN PREP TIS PAP AND HR HPV DNA Pathology and Cytology Routine Well woman exam with routine gynecological exam Ordered: 10/14/2024 [facility] Comment on above: Ordered: 10/14/2024 Immunizations Immunization Date Immunization Notes Care Provider Fa cility 11-25-2021 SARS-CoV-2 (COVID-19 ) mRNA BNT-162b2 vax [employer] [facility] 01-26-2021 SARS-CoV-2 (COVID-19 ) Ad26 vaccine, recombinant [employer] [facility] NEGATED: Highlighted row has not occurred!01-11-2022 influenza virus vaccine, unspecified formulation Deyanira Chan [facility] Payers Date Payer Category Payer Self-pay [id number] 2021 Private Health Insurance [id number] 2021 Unknown 2021 Unknown [id number] 1959 Unknown [id number] 1956 Unknown [id number] 2.16.84 [id number] 1956 Unknown [id number] 2.16.84 0.1.056186.3.579.2.593 1956 Unknown [id number] 2.16.8 40.1.354514.3.579.2.727 1956 Unknown [id number] 2.16.8 40.1.163595.3.579.2.727 1956 Unknown [id number] 2.16.84 0.1.150760.3.579.2.1259 1956 Unknown [id number] 2.16.84 0.1.133398.3.579.2.1259 1956 Unknown [id number] 2.16.84 0.1.097888.3.579.2.1259 1956 Unknown [id number] 2.16.84 0.1.696499.3.579.2.9 1956 Unknown [id number] 2.16.84 0.1.587429.3.579.2.1259 1956 Unknown [id number] 2.16.84 0.1.355616.3.579.2.1259 1956 Unknown [id number] 2.16.84 0.1.168123.3.579.2.1259 1956 Unknown [id number] 2.16.84 0.1.537847.3.579.2.1259 Unknown [id number] Unknown [id number] 2.16.8 40.1.193621.3.579.2.531 Unknown [id number] 2.16.8 40.1.682237.3.579.2.531 Social History Date Type Detail Facility Tobacco smoking status ARIS Unknown if ever smoked [facility] Start: 1955 Sex Assigned At Female F [facility] Never a smoker Never a smoker -Gala Wilson [address] Work Phone: Start: 08-03-2017 End: 03-14-2022 Tobacco smoking status Never smoked tobacco (finding) [facility] Tobacco smoking status Never [facility] Sex Assigned At Female [facility] Tobacco smoking status NHIS Tobacco smoking consumption unknown [facility] Start: 1955 Sex assigned at Not on file [facility] Start: 01-22-2025 Sex Female (finding) [facility] Goals Date Patient Goal Desired Activity /State Functional Status Date Assessment Result Facility 05-05-2024 Functional Status N/A [facility] Clinical Notes 03-14-2022 to 01-14-2025 Leticiacynthia Courtney, DRY CLEANING TEACHER - 01/14/2025 2:10 PM Wil Courtney, DRY CLEANING TEACHER - 10/14/2024 1:20 PM Humberto Carson, DRY CLEANING TEACHER - 07/28/2024 1:30 PM EDT Note Date [...] nursing note reviewed. Exam conducted with a process owner present. Vitals: Estimated body mass index is [...] Menstrual history: postmenopausal documented in this encounter [facility] 10-14-2024 History of Present illness Narrative Reason [...] Past Medical History: Diagnosis Date Autoimmune disease ([facility]) HISTORY PAST MEDICAL HISTORY SOCIAL HISTORY Past Medical History: Diagnosis Date Autoimmune disease ([facility]) Social History Tobacco Use Smoking [...] nursing note reviewed. Exam conducted with a process owner present. Vitals: Estimated body mass index is [...] Cony Garrido DO documented in this encounter [facility] 07-28-2024 History of Present illness Narrative Reason [...] nursing note reviewed. Exam conducted with a process owner present. Vitals: Estimated body mass index is [...] Cony Garrido DO documented in this encounter [facility] 05-05-2024 Hospital Discharge instructions Patient Education 05/05/2024 [...] including vitamins, herbs, eye drops, creams, and rgdo-otz-bxzguzu medicines. Any problems you or family members [...] provider tells you to take them. Taking sauq-pvm-aktuudm medicines, vitamins, herbs, and supplements. Tests You [...] Follow these instructions at home: Medicines Take xgmv-mfe-ggffbzs and prescription medicines only as told by [...] provider. Document Revised: 07/19/2022 Document Reviewed: 06/17/2021 [employer] Patient Education 2022 O-CODES. Follow Up Care 03/24/2024 15:37:07 With:iVv WALLACE MDrick R, URL Address: [facility] [address] [place] [address]- When: Unknown [facility] [place] 05-05-2024 Note Chief Complaint referral for incontinence HPI Staff Referral for incontinence by Dr. Garrido. Pt states that she had a bladder sling procedure done about 15 years at the [facility]. She states that the incontinence [...] s/p bladder sling 15 yrs ago at [facility]. S/p hysterectomy. 1. Overflow incontinence (N39.490: Overflow incontinence) S/p bladder sling and prolapse repair 15 yrs ago at [facility] by Dr. Jimenez due to bladder prolapse. Likely had large piece of mesh placed. Pt was dry after sling. Leaking starting 5 yr ago. Leaking worsens with increased fluid intake and coffee. Tried cream through Dr. Bustos, does not recall cream. [place] it was washed away each time she [...] cream for #3. -Retrieve op note from [facility]. -Will schedule cysto with pelvic exam. [...] past. -Start Clobetasol bid. Rx sent to [facility] [place]. 4. Dysuria (R30.0: Dysuria) Also has burning with urination which would not be caused by external irritation. Follow-up With When Contact Information Wiliam WALLACE MD, URL [facility] [address] [place] [address]- Additional Instructions: schedule cysto with pelvic exam Patient Education Cystoscopy I, Nasra Tiwari, personally scribed for Dr. Will og (more content not included)... [facility] Comment on above: Result Comment: Elec tronically Signed By: Wiliam WALLACE MD\.br\Date and Time Signed: 05/05/24 10:55 EDT\.br\Electronically Co-Signed By: Nasra Tiawri\.br\Date and Time Co-Signed: 05/05/24 10:52 EDT 05-05-2024 [...] including vitamins, herbs, eye drops, creams, and swvv-hmj-silaedm medicines. ? Any problems you or family [...] tells you to take them. ? Taking onmi-luj-xhvdsre medicines, vitamins, herbs, and supplements. Tests You [...] these instructions at home: Medicines ? Take vhly-leh-ykkytwc and prescription medicines only as told by [...] the department th (more content not included)... [facility] 12-26-2022 Evaluation note Encounter Date Diagnosis Assessment Notes Dec, Vulvovaginitis (ICD-10 - N76.0) Explained prescription cream should help with irritation and itching. Discussed various brands of incontinence pads. Offered medication to help with urinary incontinence which she did not declines at this time. Also offered a referral for M[employer]UM [employer]ICE SCHEDULER or urology for chronic incontinence which she declines as well. [employer] Other 04-26-2022 Hospital Discharge instructions Patient Education [...] Follow these instructions at home: Medicines Take koky-oms-rbyycvd and prescription medicines only as told by [...] 11/02/2001 Document Revised: 03/31/2020 Document Reviewed: 03/31/2020 [employer] Patient Education 2019 O-CODES. Follow Up Care 02/23/2022 16:00:41 With:Deyanira Chan CNP Address: When:3 months [facility] Evaluation + Plan note Future Appointments Appointment Date:06/13/2022 10:00:00 AM Scheduled Provider:Deyanira Chan CNP Location:[facility] Appointment Type:[facility] Follow Up Future Scheduled Tests Radiology* XR Esophagus 03/14/22 [facility] Evaluation noteNo assessment information available [facility] Work Phone: evaluation note* Diagnosis Well woman [...] surgery 08/2017 Hospitalization History SEE SURGICAL HX [employer] Other Hospital course Narrative No data available for this section [facility] Hospital Discharge instructions No data available for this section [facility] Progress note No data available for this section [facility] Summary Purpose Family History No [...] is getting better perhaps we can watch sbrq-msa-ptb. If she is not getting better, I will likely need to get an MRI so that we can evaluate further. Chief Complaint and Reason for Visit Chief Complaint Admit Date R95.8 January 22, 2025 8:15 am Additional Source Comments INFORMATION SOURCE (unrecogn ized section and content) DATE CREATED AUTHOR 05/14/2018 [facility] DATE CREATED AUTHOR AUTHOR'S ORGANIZ ATION 05/06/2021 [employer] DATE CREATED AUTHOR AUTHOR'S ORGANIZ ATION 05/10/2021 [facility] DATE CREATED AUTHOR AUTHOR'S ORGANIZ ATION 04/13/2022 [facility] [place] [facility] DATE CREATED AUTHOR AUTHOR'S ORGANIZ ATION 08/30/2024 [facility] DATE CREATED AUTHOR AUTHOR'S ORGANIZ ATION 01/16/2025 [facility]ical [facility] DATE CREATED AUTHOR AUTHOR'S ORGANIZ ATION 01/29/2025 [facility] Care Team (unrecognized sect ion [...] BE BASED ON THE PRIMARY CLINICAL RECORDS. [employer] [facility]. provides no warranty or guarantee of the accuracy or completeness of information in this document.
[2025-08-11 08:50] LABS: Glucose Urine UA NEGATIVE (NEGATIVE)
[2025-08-11 09:20] LABS: Hematocrit 30.4 % (36.0-48.0); Hemoglobin 9.2 g/dL (12.0-16.0); Immature Granulocytes Abs Auto 0.01 10^3/uL (0.00-0.03); Immature Granulocytes Pct Auto 0.2 % (0.0-0.5); Lymphocytes Absolute Auto 1.2 10^3/uL (1.2-3.8); Mean Corpuscular HGB Conc 30.3 g/dL (29.9-35.2); Mean Corpuscular Hemoglobin 27.5 pg (26.7-34.0); Mean Corpuscular Volume 90.7 fL (81.0-99.0); Platelet Count 325 10^3/uL (150-450); Red Blood Count 3.35 10^6/uL (4.20-5.40); White Blood Count 4.8 10^3/uL (4.0-11.0)
[2025-08-11 09:25] LABS: Cast Seen? NONE SEEN #/LPF (NONE SEEN); Crystals Seen? None Seen #/HPF (None Seen)
[2025-08-11 09:40] LABS: Anion Gap 14.9; Blood Urea Nitrogen 12.0 mg/dL (7.0-18.0); Carbon Dioxide 24.4 mmol/L (21.0-32.0); Chloride 102 mmol/L (98-107); Glucose 110 mg/dL (74-106); Potassium 4.3 mmol/L (3.5-5.1); Sodium 137 mmol/L (136-145)
[2025-08-11 09:41] LABS: Alanine Aminotransferase 24 U/L (14-59); Albumin Globulin Ratio 0.9; Albumin Level 3.5 g/dL (3.4-5.0); Alkaline Phosphatase 115 U/L (46-116); Aspartate Amino Transferase 13 U/L (15-37); Calcium 8.6 mg/dL (8.5-10.1); Estimated GFR (African America >60 (>=60 mL/min/1.73m^2); Estimated GFR (Non-African Ame >60 (>=60 mL/min/1.73m^2); Globulin 4.0 g/dL; Total Protein 7.5 g/dL (6.4-8.2)
== END 2025-08-11 08:28 | disposition home or self-care (01) ==
LOC: LAB 08:29
PROVIDERS: PCP Family Medicine; Visit Provider Internal Medicine Rheumatology
DX: M15.0 Primary generalized (osteo)arthritis (principal); M36.8 Systemic disorders of connective tissue in other diseases classified elsewhere; Z79.899 Other long term (current) drug therapy
CPT/HCPCS: 36415; 80053; 81001; 85025; 85652; 86160; 86162

== ENCOUNTER 2025-08-18 10:52 | Outpatient (OUT) | payer OTHER, SELFPAY ==
--- OUTSIDE RECORDS SUMMARY | 2025-01-22 09:15 | XMS_ITS ---
Author Name Auto Generated Organization OHIP Care Team Providers Care Outpatient Pharmacy Manager Name Role Phone Cristopher Chang Primary Care Unavailable Cony Garrido Attending Unavailable Cony Garrido Admitting Unavailable CONY GARRIDO Attending Unavailable CONY GARRIDO Attending Unavailable PROBLEMS DATE TYPE CONDITION / CODE ATTENDING STATUS EMMY E 01/22/2025 Unknown Other abnormal a nd inconclusive findings on diagnostic imaging of breast / R92.8(ICD-10) Cony Garrido Active [facility] PROCEDURES No Procedure Records Found RESULTS MM SPECIAL VIEW RT W/CAD Observed: 01/22 9:09 AM Status: COMPLETED Source: [facility] [address] [place] [address] [place], [place] [id number] Mammography Report Signed Patient: Nancy Billingsley V MR#: [id number] : 1955 Acct:[id number] Age/Sex: 69 / F Adm Date: 01/22/25 Loc: [place] Room: Type: [facility] CLI Attending Dr: Cony Garrido DO Ordering Provider: Cony Garrido Date of Service: 01/22/25 Procedure(s): MM special view RT w/CAD Accession Number(s): ([id number]) MM/MM special view RT w/CAD: R92.8 Copies to: DO Cony Smith CLINICAL DATA: Callback focal asymmetry right breast Right DIAGNOSTIC MAMMOGRAM - WITH TOMOSYNTHESIS AND CAD , COMPARISON:Mammograms dating back to 2019 Tomosynthesis imaging was obtained using low-dose digital technique. This examination was reviewed with the aid of CAD. Additional ultrasound imaging was also obtained. Mammogram: The right breast is composed of scattered fibroglandular densities. Previously identified focal asymmetry compresses out on the spot compression views suggests overlapping stroma. MM/MM special view RT w/CAD IMPRESSION: NO MAMMOGRAPHIC OR ULTRASOUND EVIDENCE OF MALIGNANCY. ROUTINE FOLLOW-UP IS RECOMMENDED IN ONE YEAR. RESULT CODE: 1 Negative DENSITY CODE: 2 (approximately 25-50% glandular) There are scattered areas of fibroglandular density. FOLLOW UP: 1YR The false-negative rate of mammography is approximately 10-percent. Management of a palpable abnormality must be based on clinical grounds. Impression dictated by: Carlos Langley Jr., D.OParisa01/22/2025 9:14 AM Dictation Location: [facility] Dictated By: Carlos Langley Jr, DO 01/22/25 0909 Signed By: <Electronically signed by Carlos Langley Jr, DO in OV> 01/22/25 0914 ALLERGIES DATE TYPE / CODE NAME / CODE REACTION SEVERITY SOURCE 08/20/2017 Drug Allergy/[id number] (SNOMED CT) No Known Allergies/[id number](RXNORM) Unknown [facility] ENCOUNTERS ADMIT/DISCHARGE ACCOUNT NUMBER ADMITTING ENCOUNTER CLASS LOCATION SOURCE 01/22/2025/01/23/20 25 [id number] Cony [facility]arrido [facility] 01/14/2025/01/14/20 [id number] Ambulatory [facility] EPIC 10/14/2024/10/14/20 24 [id number] Ambulatory Building:[facility] OB [facility] EPIC PAYERS ENCOUNTER GUARANTOR PAYER SUBSCRIBER SOURCE 01/22/2025 Nancy Milner [address] [address]Anc: () Primary Insurance:[facility] Number: [id number] e Date:[id number] [place] [address]ZO: Kip E LoudenslagelDOB: [id number] [facility] [address] [address]Qij: () [facility] 01/22/2025 Secondary Insurance:Self PayPolicy Number: Effective Date:2025-01-19 [facility] 01/14/2025 NANCY LOUDENSLAGELDOB: [facility] [address] [place], [place] [address]Tel: () Primary Insurance:MEDICAL MUTUALPolicy Number: [id number] kendra Date:2021-11-19 [facility] LOUDENSLAGELDOB: [id number] [facility] 10/14/2024 NANCY LOUDENSLAGELDOB: [facility] [address] [place] [phone]: () Primary Insurance:MEDICAL MUTUALPolicy Number: [id number] e Date:2021-11-19 [facility] LOUDENSLAGELDOB: [id number] [place] [id number] [facility]
--- OUTSIDE RECORDS SUMMARY | 2025-08-18 10:55 | XMS_ITS | Encounter Summary ---
Author Organization [facility] Address [address] [place] [address] Care Team Providers Care Publication Distributor Name Role Phone Unavailable Primary Care Provider Unavailabl e Encounter Details Date Type Department Care Team (Late Contact Info) Description 07/15/2024 Abstract [facility] LARKIN [address] [place] [phone] Yon Garrido DO [address] [place], [facility] Social History Tobacco Use Types Packs/Day Years Used Date Smoking Tobacco: Never Assessed Comments No Sex and Gender Information Value Date Recorded Sex Assigned at Not on file Legal Sex Female 6:47 PM EDT Gender Identity Not on file Sexual Orientation Not on file documented as of this encounter Plan of Treatment Upcoming Encounters Date Type Department Care Team (Late Contact Info) Description 10/27/2025 2:00 PM EST Office Visit CASSANDRA LARKIN [address] [place] [phone] Yon Garrido DO [address] [place], [facility] documented as of this encounter Visit Diagnoses Not on filedocumented in this encounter
--- OUTSIDE RECORDS SUMMARY | 2025-08-18 10:55 | XMS_ITS | Encounter Summary ---
Author Organization [facility] Address [address] [place] [address] Care Team Providers Care Dispute Coordinator Name Role Phone Unavailable Primary Care Provider Unavailabl e Encounter Details Date Type Department Care Team (Late Contact Info) Description 11/04/2024 Orders Only CASSANDRA LARKIN [address] [place] [phone] Carmelina Nix [place] [address] [place] [address] Social History Tobacco Use Types Packs/Day Years [...] PM EST Office Visit CASSANDRA LARKIN [address] [place] [phone] Yon Garrido DO [address] [place] [address] documented as of this encounter Procedures Procedure Name Priority Date/Time Associated Diagnosis Comments PAP SMEAR Routine 10/14/2024 12:00 AM EST documented in this encounter Results * Pap Smear (10/14/2024 12:00 AM EST) Swab Cervical swab / Unknown us Yon Garrido DO LAB CYTOLOGY ORDERABLES Final Re sult EXTERNAL LAB documented in this encounter Visit Diagnoses Not on filedocumented in this encounter
--- OUTSIDE RECORDS SUMMARY | 2025-08-18 10:55 | XMS_ITS | Clinical Summary ---
Author Organization [facility] Address [address] [place] [address] Care Team Providers Care Golf Ball Trimmer Name Role Phone Unavailable Primary Care Provider Unavailabl e Social History Tobacco Use Types Packs/Day Years Used Date Smoking Tobacco: Never Assessed Comments Unknown Sex and Gender Information Value Date Recorded Sex Assigned at Not on file Legal Sex Female 12:29 AM EDT Gender Identity Not on file Sexual Orientation Not on file Plan of Treatment Not on file
--- OUTSIDE RECORDS SUMMARY | 2025-08-18 10:55 | XMS_ITS | Encounter Summary ---
Author Organization [facility] Address [address] [place] [address] Care Team Providers Care Public Health Analyst Name Role Phone Unavailable Primary Care Provider Unavailabl e Encounter Details Date Type Department Care Team (Late Contact Info) Description 01/23/2025 Abstract NOMAugustin LARKIN [address] [place] [phone] Yon Garrido DO [address] [place], [facility] Social History Tobacco Use Types Packs/Day Years [...] Office Visit CASSANDRA LARKIN [address] [place] [phone] Yon Garrido DO [address] [place], [facility] documented as of this encounter Visit Diagnoses Not on filedocumented in this encounter
--- OUTSIDE RECORDS SUMMARY | 2025-08-18 10:55 | XMS_ITS | Clinical Summary ---
Author Organization [facility] Healthcare Address [address] [place] [address] Care Team Providers Care Train Caller Name Role Phone Unavailable Primary Care Provider Unavailabl e Allergies No known active allergies Medications ARIPiprazole (Abilify) 2 MG tablet Take 2 mg by mouth at bedtime 02/22/2024 Active cyclobenzaprine (Flexeril) 10 MG tablet Take 10 mg by mouth at bedtime Active DULoxetine (Cymbalta) [address] capsule Take 120 mg by mouth Daily Active etodolac (Lodine) 500 MG tablet Take 500 mg by mouth in the morning and 500 mg before bedtime. Active estradiol (Estrace) 0.1 MG/GM vaginal creamIndication s:Dyspareunia in female Insert 2 g into the vagina at bedtime Once a day for one month and then at bedtime twice a week. 42.5 g 11 10/14/2024 Active Active Problems Problem Noted Date Diagnosed Date Vaginal burning 06/18/2024 Vaginal lesion 06/18/2024 Family History Medical History Relation Name Comments Emphysema Father mysothelioma Mother bladder cancer Sister Relation Name Status Comments Father Mother Sister Social History Tobacco Use Types Packs/Day Years Used Date Smoking Tobacco: Never Assessed Comments No Sex and Gender Information Value Date Recorded Sex Assigned at Not on file Legal Sex Female 6:47 PM EDT Gender Identity Not on file Sexual Orientation Not on file Last Filed Vital Signs Vital Sign Reading Time Taken Comments Blood Pressure 120/76 01/14/2025 2:13 PM EST Pulse - - Temperature - - Respiratory Rate - - Oxygen Saturation - - Inhaled Oxygen Concentration - - Weight 73.2 kg (161 lb 6.4 oz) 01/14/2025 2:13 P M EST Height 157.5 cm (5' 2 ) 03/18/2024 2:30 PM EDT Body Mass Index 29.52 03/18/2024 2:30 PM EDT Plan of Treatment Upcoming Encounters Date Type Department Care Team (Late st Contact Info) Description 10/27/2025 2:00 PM EST Office Visit [facility] [address] [address] Yon Garrido, [address] [place] [address] Health Maintenance Due Date Last Done Comments CT Colonography 1955 Colonoscopy 1955 Colorectal Cancer Screening 1955 FIT-DNA 1955 FIT 1955 FOBT 1955 Sigmoidoscopy 1955 Pneumococcal Vaccine: 65+ Years (1 of 1 - PCV) 006 Influenza Vaccine (#1) 2025 Mammogram 01/14/2026 01/14/2025 Procedures Procedure Name Priority Date/Time Associated Diagnosis Comments MM TOMOSYNTHESIS SCREENING BI 01/14/2025 11:54 AM EST from Last 3 Months or Most Recently Relevant to Health Maintenance Results * MM TOMOSYNTHESIS SCREENING BI (01/14/2025 11:54 AM EST) Anatomical Region Laterality Modality Other 01/14/2025 11:5 4 AM EST Narrative 01/14/2025 11:55 AM EST The [address] [address] Mammography Report Signed Patient: NANCY BILLINGSLEY V MR#: [id number] : 1955 Acct:[id number] Age/Sex: 69 / F ADM Date: 01/14/25 Loc: MAMMO Attending Dr: Yon Garrido D.O. Ordering Physician: Yon Garrido D.O. Results: Date of Service: 01/14/25 Follow Up: Procedure(s): MM tomosynthesis screening BI Accession Number(s): [id number] cc: Samantha Toro M.D.; Yon Garrido D.O. Patient Name: NANCY BILLINGSLEY MR#: [id number] : 1955 Exam Date: 01/14/2025 Ordering Doctor: DR Yon Garrido . RADIOLOGY REPORT PROCEDURE: MM TOMOSYNTHESIS [...] bladder cancer at age 51. LOCATION: The [facility] BREAST COMPOSITION: The breasts are heterogeneously dense,which [...] Signed By: 01/14/25 1155 DD/ 1154 TD/TT: Traffic Rate Clerk: Procedure Note Radiology, Radiologist, - 01/14/2025 [place] [address] Mammography Report Signed Patient: NANCY BILLINGSLEY VMR#: [id number] : 1955cct:[id number] Age/Sex: 69 / FADM Date: 01/14/25 Loc: MAMMO Attending Dr: Yon Garrido D.O. Ordering Physician: Yon Garrido D.O.Results: Date of Service: 01/14/25Follow Up: Procedure(s): MM tomosynthesis screening BI Accession Number(s): [id number] cc: Samantha Toro M.D.; Yon Garrido D.O. Patient Name: NANCY BILLINGSLEY MR#: [id number] : 1955 Exam Date: 01/14/2025 Ordering Doctor: DR Yon Garrido . RADIOLOGY REPORT PROCEDURE: MM TOMOSYNTHESIS [...] bladder cancer at age 51. LOCATION: The [facility] BREAST COMPOSITION: The breasts are heterogeneously dense,which may obscure small masses. FINDINGS: RIGHT BREAST: No significant suspicious finding. LEFT BREAST: FOCAL ASYMMETRY 8 cm from the nipple medially at the 3o'clock position in the right breast measuring approximately 6 millimeters ingreatest dimension. This is new when compared to the prior exam. DIAGNOSTIC CATEGORY 0--INCOMPLETE: NEED ADDITIONAL IMAGING EVALUATION. RECOMMENDATIONS: ADDITIONAL MAMMOGRAPHIC VIEWS REQUIRED: RIGHT BREAST - spot compressed and craniocaudal ULTRASOUND: RIGHT BREAST PLEASE NOTE: A NORMAL MAMMOGRAM DOES NOT EXCLUDE THE POSSIBILITY OFBREAST CANCER. A CLINICALLY SUSPICIOUS PALPABLE LUMP SHOULD BE BIOPSIED. Dictated by: Kayden Ulrich MD on 01/14/2025 at 11:52 Approved by: Kayden Ulrich MD on 01/14/2025 at 11:54 Dictated By: Kayden Ulrich M.D. Signed By:01/14/25 1155 DD/ 1154 TD/TT: Traffic Rate Clerk: Yon Garrido DO [facility] Final Result from Last 3 Months or Most Recently Relevant to Health Maintenance Insurance [employer]
--- OUTSIDE RECORDS SUMMARY | 2025-08-18 10:55 | XMS_ITS | Clinical Summary ---
Author Organization [facility] Address [address] [place] [address] Phone Care Team Providers Care Registered Veterinary Technician Name Role Phone Cristopher Chang DO Primary Care Provider [phone] Social History Tobacco Use Types Packs/Day Years Used Date Smoking Tobacco: Never Assessed Comments Unknown Sex and Gender Information Value Date Recorded Sex Assigned at Not on file Legal Sex Female 11:23 AM EST Gender Identity Not on file Sexual Orientation Not on file Plan of Treatment Not on file Care Teams Registered Veterinary Technician Relationship Specialty Start Date End Date Cristopher Chang DO PCP - General 08/03/14
--- OUTSIDE RECORDS SUMMARY | 2025-08-18 10:55 | XMS_ITS | Encounter Summary ---
Author Organization [facility] Address [address] [place] [address] Care Team Providers Care Blind Escort Name Role Phone Unavailable Primary Care Provider Unavailabl e Encounter Details Date Type Department Care Team (Late Contact Info) Description 07/24/2024 Abstract [facility] [address] [place] [id number] Yon Garrido DO [address] [place], [facility] Social History Tobacco Use Types Packs/Day [...] Office Visit [facility] [address] [place] [phone] Yon Garrido DO [address] [place], [facility] documented as of this encounter Visit Diagnoses Not on filedocumented in this encounter
[2025-08-18] MEDS: ALBUTEROL SULFATE 2.5 MG/3 ML VIAL NEB IH (11:49)
--- NOTE | 2025-08-18 12:29 | XR_ITS ---
The [address] [address] Patient Name: SEAN GAINES MRN: [id number] date: 1955 Sex: F Assigned Patient Location: CARD Current Patient Location: CARD Accession/Order Number: [id number] Exam Date: 08/18/2025 12:20 Report Date: 08/18/2025 22:02 At the request of: CHERELLE HULL Procedure: XR chest 2V Plain film chest 2 view HISTORY: Shortness of breath. COMPARISON: None FINDINGS: SUPPORT DEVICES: None POSTSURGICAL CHANGES: None HEART: Within normal limits PULMONARY NOBLE: Within normal limits MEDIASTINUM: Large hiatal hernia LUNGS AND PLEURA: No acute lung process, pleural effusion or pneumothorax identified. BONY STRUCTURES: Intact ADDITIONAL FINDINGS None XR/XR chest 2V IMPRESSION: No acute process. Impression dictated by: Howard Hammer M.D. 08/18/2025 10:02 PM Dictation Location: Agency Spotter Electronically authenticated by: [id number] Y Date: 08/18/2025 22:02
--- NOTE | 2025-08-18 12:30 | ECG_ITS ---
The [facility] Test Date: 2025-08-18 Pat Name: SEAN GAINES Department: Room: - Gender: Female [employer]2B Account Executive: : 1955 Requested By: [id number] Order Number: [id number] Reading MD: JOSELITO MEYERS M.D. Measurements Intervals [place] Rate: 93 P: 71 VA: 190 QRS: 77 QRSD: 111 T: 68 QT: 365 QTc: 455 Interpretive Statements SINUS RHYTHM Normal ECG Compared to ECG 06/15/2020 09:18:26 No significant changes Electronically Signed On 08-18-2025 20:00:40 EDT by JOSELITO MEYERS M.D.
== END 2025-08-18 10:53 | disposition home or self-care (01) ==
LOC: CARD 10:53
PROVIDERS: PCP Family Medicine; Visit Provider Internal Medicine Rheumatology
DX: R06.09 Other forms of dyspnea (principal)
CPT/HCPCS: 71046; 93005; 94060; 94726; 94729

== ENCOUNTER 2025-10-27 19:12 | Outpatient (REF) | payer OTHER, SELFPAY ==
--- OUTSIDE RECORDS SUMMARY | 2025-10-27 19:18 | XMS_ITS | CCD ---
Author Organization [facility] CliniSywv Care Team Providers Care Information Coordinator Name Role Phone Ian Diaz Unavailable Unavailable Cristopher Rodriguez Unavailable Unavailabl e Cristopher Rodriguez Unavailable Unavailabl e Cristopher Rodriguez E Unavailable Unavailable Unavailable CRISTOPHER RODRIGUEZ Primary Care Physician ALEXANDRE, DR ROMERO Attending Unavailable TIMMIS, DR ROMERO Consulting Unavailable BUSTOS, DR DONG Martinez Primary Care Unavailable TIMWINNIE, DR ROMERO Admitting Unavailable MICHAEL, DR YOST Referring Unavailable ARLINGTON, DR RAHUL Espinoza Consulting Unavailable DELLA, DR VILLARREAL Consulting Unavailable DELLA, DR VILLARREAL Admitting Unavailable AKASH, DR DONG Martinez Primary Care Unavailable DELLA, DR VILLARREAL Attending Unavailable Dong Bustos Unavailable DO Yon Garrido Attending Provider Wiliam WALLACE Attending Unavailable RALPH AYERS Referring Unavailable Wiliam WALLACE Attending Unavailable Unavailable Primary Care Provider Unavailabl e YON GARRIDO Attending Unavailable ANDRIA, RALPH Attending Unavailable ANDRIA, RALPH Attending Unavailable ANDRIA, RALPH Attending Unavailable ANDRIA, RALPH Attending Unavailable HEMA, YON Attending Unavailable HEMA, YON Attending Unavailable HEMA, YON Attending Unavailable Hema Yon ARREAGA Attending Provider [phone] Cristopher Rodriguez DO Primary Care Provider [phone] Cristopher Rodriguez DO Primary Care Provider Cherelle Heck MD Attending Provider [phone] Marisol Sims APRN Attending Provider [phone] Yon Garrido Admitting Unavailable Cristopher Rodriguez Primary Care Unavailable Yon Garrido Attending Unavailable Marisol Sims Attending Unavailable Marisol Sims Admitting Unavailable Cristopher Rodriguez Primary Care Unavailable Unavailable Unavailable Unavailable Allergies Allergy ClassificationReported Allergen(s)Allergy TypeDate of OnsetReaction(s) Facility (1 source)No Known Medication Allergies; Translations: [No Known Medication Allergies]Propensity to adverse reactions (disorder)[facility] Repository Medications Current Medications MedicationDrug Class(es)DatesSig (Normalized)Sig (Original)[id number] 200 actuat albuterol 0.09 mg/actuat metered dose inhaler (2 sources)beta2-Adrenergic AgonistStart: 07-82-8839dipt 1 puff(s) by inhalation every four to six hours as needed for wheezingARIPiprazole 2 mg oral tablet (16 sources)Atypical AntipsychoticStart: 31-70-6545Bgvyi: 81-61-2253sxdi 1 tablet by mouth at bedtimeARIPiprazole (Abilify) 2 MG tablet Take 2 mg by mouth at bedtime 02/22/2024 Activeazithromycin 250 mg oral tablet (2 sources)Macrolide AntimicrobialStart: 04-96-4890fkzmswdubv propionate 0.5 mg/ml topical cream (8 sources)CorticosteroidStart: 24-86-7969Vozdp: 07-28-2024 End: 68-30-7547tkuqvmidtn (Temovate) 0.05 % cream Indications: Vaginal itching Apply 1 application topically everyother day 45 g 3 07/28/2024 08/27/2024 Active Start: 07-01-2024 End: 51-83-4505abomojwoam (Temovate) 0.05 % cream Indications: Vaginal lesion Apply 1 application topically Daily Apply to affected area daily in the morning 45 g 07/01/2024 07/28/2024 Discontinued (Reorder)Start: 66-17-5554ncywijeppw propionate 0.05% top oint 1 wu, Topical, BID, 45 gm, Refill(s) 1, Apply a thin film to affected area, [facility], 158, cm, 05/05/24 10:21:00 EDT, Height/Length Dosing, 70, kg, 05/05/24 10:21:00 EDT, Weight Dosing Start Date: 05/05/24 Status: Orderedcyclobenzaprine hydrochloride 10 mg oral tablet (20 sources)Muscle RelaxantStart: 85-84-4469Jrhft: 94-43-7904tksb 3 tablets by mouth once daily at bedtimecyclobenzaprine 10 mg, Oral, Once a day (at bedtime), takes 3 tabs, Refills(s) 0, Spasm Start Date:02/17/22 Status: OrderedStart: 08-20-2017 End: 38-95-8895rypt 3 tablets by mouth at bedtimeCyclobenzaprine 10 mg tablet Discontinued 3 TAB PO Bedtime August 20, 2017 12:00am September 10, 2025 12:24pmStart: 91-29-0167giub 3 tablets by mouth at bedtimeCyclobenzaprine Active 3 TAB Oral Bedtime August 20, 2017 7:28amtake 1 tablet by mouth at bedtime cyclobenzaprine (Flexeril) 10 MG tablet Take 10 mg by mouth at bedtime Active Flexeril ActiveFlexeril TABS Quantity: 0 Refills: 0 Ordered: 12-Feb-2014 DO ActiveCymbalta 60 mg Cap-DR (1 source)Start: 69-57-4839Ytebyeho 60 mg Cap-DR Oral, Refills(s) 0 Start Date: 05/05/24 Status: Ordereddiclofenac sodium 0.01 mg/mg topical gel (1 source)Nonsteroidal Anti-inflammatory DrugStart: 04-04-0646tibreuqqb 0.1 mg/ml vaginal cream (6 sources)EstrogenStart: 10-14-2024 End: 81-45-7033ecryrglel (Estrace) 0.1 MG/GM vaginal cream Indications: Dyspareunia in female Insert 2 g into the vagina at bedtime Once a day for one month and then at bedtime twice a week. 42.5 g 11 10/14/2024 10/14/2025 Active estrogens, conjugated (residential) 0.625 mg/ml vaginal cream (3 sources)EstrogenStart: 07-03-2024 End: 95-91-8576Rkpodysab Conjugated (Premarin) 0.625 MG/GM cream Indications: Vaginal lesion Insert 0.5 g into thevagina Daily Insert 1/2 applicator at bedtime nightly for 2 weeks then twice a week thereafter 1 g 3 07/03/2024 08/02/2024 Activeetodolac 500 mg oral tablet (14 sources)Nonsteroidal Anti-inflammatory DrugStart: 28-18-1982kqsj 500 mg by mouth twice dailyetodolac 500 mg, Oral, BID, Refills(s) 0, Inflammation Start Date: 01/11/22 Status: Orderedfamotidine 20 mg oral tablet (3 sources)Histamine-2 Receptor AntagonistStart: 61-50-3736yxtn 20 mg by mouth once dailyfamotidine 20 mg, Oral, Daily, Prescribed by another provider., Refills(s) 0, Control of stomach acid Start Date: 01/11/22 Status: Ordered hydroxychloroquine sulfate 200 mg oral tablet (10 sources)Antimalarial, Antirheumatic AgentStart: 41-26-7034fjdx 200 mg by mouth twice dailyhydroxychloroquine 200 mg, Oral, BID, Refills(s) 0, Arthritis Start Date: 02/17/22 Status: OrderedStart: 08-20-2017 End: 11-20-7811bydr 1 tablet by mouth once dailyHydroxychloroquine (Plaquenil) 200 mg Tablet Discontinued 200 MG PO Daily August 20, 2017 12:00amOctober 2024 12:34pmPlaquenil 200 MG Oral Tablet Quantity: 0 Refills: 0 Ordered: 12-Feb-2014 DO Activelidocaine 0.05 mg/mg medicated patch (1 source)Antiarrhythmic, Amide Local AnestheticStart: 62-01-3596luferazg 25 mg/ml oral suspension (3 sources)Nonsteroidal Anti-inflammatory Drugtake 10 mL by mouth twice daily Naprosyn 500 MG Oral Tablet Quantity: 0 Refills: 0 Ordered: 12-Feb-2014 DO Activeomeprazole 40 mg oral tablet (2 sources)Proton Pump InhibitorStart: 23-76-2690komr 40 mg by mouth once daily omeprazole 40 mg, Oral, Daily, Refills(s) 0, Control of stomach acid Start Date: 01/11/22 Status: OrderedpredniSONE 20 mg oral tablet (2 sources)Start: 94-69-7288qniu 2 tablets by mouth once dailytriamcinolone acetonide 5 mg/ml topical cream (3 sources)CorticosteroidStart: 26-46-9097Viknofdlhaxuw Acetonide 0.5 % 1 application Externally Twice a day for 30 day(s) Dec, ActiveStart: 32-74-6799Aocabqh -40 mg Nov, 40 mgvalACYclovir 500 mg oral tablet (3 sources)Herpesvirus Nucleoside Analog DNA Polymerase Inhibitor, Herpes Simplex Virus Nucleoside Analog DNA Polymerase Inhibitor, Herpes Zoster Virus Nucleoside Analog DNA Polymerase InhibitorStart: 07-01-2024 End: 31-89-1117qtkWDUtvvuwz (Valtrex) 500 MG tablet Indications: Vaginal lesion Take 1 tablet (500 mg) by mouth Daily Take 2 tablets by mouth for 10 days, then once a day after that. 37 tablet 5 07/01/2024 07/31/2024 Active Completed/Discontinued Medications MedicationDrug Class(es)DatesSig (Normalized)Sig (Original)acetaminophen 325 mg / HYDROcodone bitartrate 5 mg oral tablet (5 sources)Opioid AgonistStart: 08-20-2017 End: 63-41-8064obip 1 tablet by mouth every four to six hours as needed for pain Hydrocodone-Acetaminophen ([place]) 5-325 mg tablet Discontinued 1 - 2 TAB PO EVERY 4-6 HOURS as needed for Pain 40 0 August 20, 2017 10:07am September 10, 2025 12:34pmamoxicillin 875 mg / clavulanate 125 mg oral tablet (1 source)Penicillin-class AntibacterialStart: 09-10-2025 End: 16-39-2033kung 1 tablet by mouth every twelve hoursAmoxicillin-Pot Clavulanate 875-125 mg tablet Discontinued 1 TAB PO Every 12 hours 20 10 0 September 10, 2025 12:00am September 10, 2025 1:52pmbusPIRone hydrochloride 15 mg oral tablet (1 source)take 1 tablet by mouth three times dailybusPIRone HCl 15 MG TAKE 1 TABLET BY MOUTH 3 TIMES A DAY Oral for 30 Not-Takingciprofloxacin 500 mg oral tablet (1 source)Quinolone AntimicrobialStart: 21-12-1130Igcos 500 mg Tab 500 mg = 1 tab(s), Oral, As Directed, Patient to take 1 tab the day before procedure and the 2nd tab the day of procedure once completed, # 2 tab(s), Refills(s) 0, Pharmacy: [facility], 158, cm, 05/05/24 10:21:00 EDT, Height/Length Dosing, 70, kg, 05/05/24 10:21:00 EDT, Weight Dosing Start Date: 05/05/24 Status: Ordereddoxycycline hyclate 100 mg oral tablet (7 sources)Tetracycline-class DrugStart: 04-78-1478Jwnjiabwsuy Hyclate 100 MG Oral Tablet Quantity: 14 Refills: 0 Ordered: 20-Aug-2017 DO Start : 20-Aug-2017 ActiveStart: 08-20-2017 End: 77-05-9158lhcq 1 tablet by mouth twice dailyDoxycycline Hyclate 100 mg tablet Discontinued 100 MG PO Twice daily 14 7 0 August 20, 2017 12:00am September 10, 2025 12:34pmDULoxetine 30 mg delayed release oral capsule (20 sources)Serotonin and Norepinephrine Reuptake InhibitorStart: 09-10-2025 End: 03-63-2935Clzfbslygl 30 mg capsule,delayed release(DR/EC) Discontinued MG PO September 10, 2025 12:00am September 10, 2025 12:34pmStart: 20-46-5522jnlp 60 mg by mouth once dailyduloxetine 60 mg, Oral, Daily, Refills(s) 0, Depression Start Date: 02/17/22 Status: OrderedStart: 08-20-2017 End: 21-30-7019ghzj 2 capsules by mouth once dailyDULoxetine (Cymbalta) [address] capsule Take 120 mg by mouth Daily ActiveCymbalta 30 MG Oral Capsule Delayed Release Particles Quantity: 0 Refills: 0 Ordered: 12-Feb-2014 DO ActiveCymbalta 60 MG Oral Capsule Delayed Release Particles Quantity: 0 Refills: 0 Ordered: 12-Feb-2014 DO Activemeloxicam 15 mg oral tablet (2 sources)Nonsteroidal Anti-inflammatory DrugStart: 04-16-2513cauy 1 tablet by mouth once daily as neededMeloxicam 15 MG Oral Tablet TAKE 1 TABLET DAILY NEEDED. Quantity: 30 Refills: 2 Ordered: 04-May-2021 Ian Diaz MD Start : 04-May-2021 ActivemethylPREDNISolone 4 MG Oral Tablet Therapy Pack (4 sources)Start: 18-60-2037bioupwMKOOFZNqnnej 4 MG Oral Tablet Therapy Pack Take as directed 21 therapy pack Quantity: 1 Refills: 0 Ordered: 04-May-2021 Ian Diaz MD Start : 16-Pj-2021 ActiveStart: 99-02-8327ygvfueVHVXHRMhkwio 4 MG Oral Tablet Therapy Pack Quantity: 21 Refills: 0 Ordered: 19-Jul-2017 DO Start : 19-Jul-2017 ActivetiZANidine 4 mg oral tablet (3 sources)Central alpha-2 Adrenergic AgonistStart: 84-68-7798rzux 1 tablet by mouth every six hours as needed for muscle spasmstiZANidine HCl - 4 MG Oral Tablet TAKE 1 TABLET EVERY 6 HOURS NEEDED FOR SPASM. Quantity: 92 Refills: 3 Ordered: 11-Jul-2022 Ian Diaz MD Start : 04-May-2021 Active Problems Active Problems Problem ClassificationProblemDateDocumented DateEpisodic/ChronicAnal and rectal conditions (4 sources)Rectal polyp; Translations: [Rectal polyp]Onset: 95-53-2854Mwwogmqg Anxiety disorders (2 sources)Mixed anxiety and depressive disorder; Translations: [Anxiety state, unspecified]ChronicCardiac dysrhythmias (1 source)Palpitations; Translations: [Palpitations]EpisodicChronic obstructive pulmonary disease and bronchiectasis (2 sources)Bronchitis; Translations: [Bronchitis, not specified as acute or chronic]05-47-2827KcoexenkUpbgkxksvf disorders (5 sources)Obstruction of esophagus; Translations: [Esophageal obstruction] Onset: 98-36-3486HntrgmyJcczwtglrspgw symptoms and ill-defined conditions (2 sources)Overflow incontinence; Translations: [Overflow incontinence of urine] Onset: 87-27-3527AcmvlbgDzzoiifbidnje symptoms and ill-defined conditions (4 sources)Dysuria; Translations: [Dysuria]Onset: 27-21-9325IroxfkkaCllaowcxduh (4 sources)Hemorrhoids; Translations: [Unspecified hemorrhoids]Onset: 03-14-2022 EpisodicInflammatory diseases of female pelvic organs (1 source)Acute vaginitisEpisodicNonspecific chest pain (1 source)Chest pain at rest; Translations: [Chest pain, unspecified]Episodic Osteoarthritis (5 sources)Primary generalized (osteo)arthritis; Translations: [Localized, primary osteoarthritis of the hand]Onset: 07-09-3930KpwajuoZpwgv aftercare (1 source)Other fci (current) drug therapy; Translations: [OTH OUTSIDE PROPERTY AGENT CURRENT DRUG THERAPY]Onset: 00-14-4556DyijipewYhwzj aftercare (2 sources)Surgical follow-up; Translations: [Encounter for follow-up examination after completed treatment for conditions other than malignant neoplasm]58-55-0466TyjawyrkUoyhd congenital anomalies (2 sources)Herniated urinary bladder; Translations: [Bladder prolapse]Chronic Other female genital disorders (2 sources)Pain in female genitalia on intercourse; Translations: [Unspecified dyspareunia]25-08-7724VtnelbhTgakd female genital disorders (1 source)Noninflammatory disorder of the vagina; Translations: [Other specified noninflammatory disorders ofvagina]Onset: 80-58-0929BkoopcvfPpryk female genital disorders (12 sources)Burning sensation of vagina; Translations: [Other specified conditions associated with female genital organs and menstrual cycle]Onset: 493305-09-7378NfjpxshmFcwwd gastrointestinal disorders (4 sources)Dysphagia; Translations: [Dysphagia, unspecified]Onset: 03-14-2022 EpisodicOther inflammatory condition of skin (5 sources)Pruritus of vagina; Translations: [Other specified noninflammatory disorders of vagina]02-24-8080HwnlqbpuNkjgn lower respiratory disease (2 sources)Dyspnea; Translations: [Shortness of breath]24-05-3980UnrginhpTxdqm lower respiratory disease (2 sources)Wheezing; Translations: [Wheezing]48-81-3866PssvkxgyPydae lower respiratory disease (1 source)Wheezing; Translations: [Wheezing]Onset: 76-98-1769XsvgwiujMkzwu skin disorders (1 source)Mass of wrist; Translations: [Localized swelling, mass and lump, right upper limb]EpisodicOther upper respiratory disease (4 sources)Chronic laryngitis; Translations: [CHRONIC LARYNGITIS]Onset: 62-72-3957AlsqgvwDwwgl upper respiratory disease (1 source)Allergic rhinitis; Translations: [Vasomotor rhinitis]ChronicResidual codes; unclassified (1 source)Postprocedural state finding; Translations: [Other specified postprocedural states]EpisodicSpondylosis; intervertebral disc disorders; other back problems (9 sources)Low back pain; Translations: [Neck pain]Onset: 48-35-6435Tkrouxwn Systemic lupus erythematosus and connective tissue disorders (1 source)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; Translations: [SYS D/O CONN TISS OTH DZ CLASS ELSW]Onset: 04-13-2022 ChronicUnclassified (2 sources)Low back pain / M54.5(ICD-10)Onset: 55-56-5756Npcmcdwqqvli (1 source)Spondyls w/o myelopathy or radiculopathy, lumbosacr region / M47.817(ICD-10)Onset: 97-32-7277Cemuwwzhzqku (1 source)Spondylolisthesis, lumbosacral region / M43.17(ICD-10)Onset: 10-25-2017 Past or Other Problems Problem ClassificationProblemDateDocumented DateEpisodic/Chronic Administrative/social admission (2 sources)Follow-up status; Translations: [Person consulting for explanation of examination or test findings]81-23-0608ZmugdbnlNnzmxidbji disorders (1 source)Esophageal disorders; Translations: [Gastroesophageal reflux disease with esophagitis without hemorrhage]Other female genital disorders (12 sources)Vaginal lesion; Translations: [Other specified noninflammatory disorders of vagina]Onset: 864891-17-8587RoclyucoGwtsy screening for suspected conditions (not mental disorders or infectious disease) (5 sources)Patient encounter status; Translations: [Encounter for screening mammogram for malignant neoplasm of breast]Onset: 350333-55-4942Rgnwjtld Unclassified (3 sources)Autoimmune (qualifier value)02-18-2016 Results Test NameValueInterpretationReference RangeFacilityX-ray reportOrdered By: Howard Hammer on 83-27-5649Ofqtc reportFLOWER [place] [address] XRay Report Signed Patient: Nancy Billingsley V MR# : [id number] : 1955 Acct:[id number] Age/Sex: 70 / F ADM Date: 5 Loc: XDUCLY Room: Type: [facility] Attending Dr: Marisol Sims APRN Copies to: Marisol Sims APRN~ Ordering Provider: Marisol Sims APRN Date of Service: 09/10/25 XR/XR chest 2V*: SOB Plain film chest 2 view HISTORY: Shortness of breath. Fatigue. COMPARISON: None FINDINGS: SUPPORT DEVICES: None POSTSURGICAL CHANGES: None HEART: Within normal limits PULMONARY NOBLE: Within normal limits MEDIASTINUM: Moderate hiatal hernia LUNGS AND PLEURA: No acute lung process, pleural effusion or pneumothorax identified. BONY STRUCTURES: Intact ADDITIONAL FINDINGS None XR/XR chest 2V* IMPRESSION: No acute process. Moderate hiatal hernia Impression dictated by: Howard Hammer M.D. 09/10/2025 1:10 PM Dictation Location: RADIO-PC-23 Transcribed By: UBALDO 09/10/25 1310 Dictated By: Howard Hammer DO 09/10/25 130 Signed By: 09/10/25 1310 [facility]*on 60-46-0456MG chest 2V*[facility] [place] [address] XRay Report Signed Patient: Nancy Billingsley V MR#: [id number] : 1955 Acct:[id number] Age/Sex: 70 / F ADM Date: 09/10/25 Loc: XDUCLY Room: Type: [facility] Attending Dr: Marisol Sims APRN Copies to: Marisol Sims APRN Ordering Provider: Marisol Sims APRN Date of Service: 09/10/25 XR/XR chest 2V*: SOB Plain film chest 2 view HISTORY: Shortness of breath. Fatigue. COMPARISON: None FINDINGS: SUPPORT DEVICES: None POSTSURGICAL CHANGES: None HEART: Within normal limits PULMONARY NOBLE: Within normal limits MEDIASTINUM: Moderate hiatal hernia LUNGS AND PLEURA: No acute lung process, pleural effusion or pneumothorax identified. BONY STRUCTURES: Intact ADDITIONAL FINDINGS None XR/XR chest 2V* IMPRESSION: No acute process. Moderate hiatal hernia Impression dictated by: Howard Hammer M.D. 09/10/2025 1:10 PM Dictation Location: RADIO-PC-23 Transcribed By: UBALDO 09/10/251309 Dictated By: Howard Hammer DO 09/10/25 1309 Signed By: 09/10/25 1310NoFormerly [facility] Physician GroupBasophils Auto (Bld) [#/Vol] Ordered By: Cherelle Heck on 80-87-5216Tktbdfbkl (Bld) [#/Vol]0.0 10 3/uL 0.0-0.1FWVUMedicine Barnesville HospitalBasophils/100 WBC Auto (Bld)Ordered By: Cherelle Heck on 95-96-5763Afugmkwgy/100 WBC (Bld)0.6 %0.2-2.0[facility] HospitalEosinophils/100 WBC Auto (Bld)Ordered By: Cherelle Heck on 71-16-0229Gdeuzvmvtoy/100 WBC (Bld)2.1 %0.9-7.0[facility] HospitalErythrocyte distribution width Auto (RBC) [Ratio]Ordered By: Cherelle Heck on 08-72-6611Npqbdqrjwzq distribution width (RBC) [Ratio]14.1 %11.0-15.0 [facility] HospitalGlobulin Calc (S) [Mass/Vol]Ordered By: Cherelle Heck on 29-02-6642Klsmhmiw (S) [Mass/Vol]4.0 g/dLGalion Community HospitalGlomerular filtration rate (GFR) estimation in non- AmericanOrdered By: Cherelle Heck on 17-55-2836JVT/1.73 sq M.predicted among non-blacks MDRD (S/P/Bld) [Vol rate/Area]mL/min/{1.73_m2}>=60 mL/min/1.73m 2FWVUMedicine Barnesville HospitalHematocrit Auto (Bld) [Volume fraction]Ordered By: Cherelle Heck on 53-07-7391Mgvxtucqry (Bld) [Volume fraction]30.4 %Low36.0-48.0[facility] HospitalHemoglobin [Mass/volume] in BloodOrdered By: Cherelle Heck on 38-93-2409Sowdueeqpv (Bld) [Mass/Vol]9.2 g/dLLow12.0-16.0[facility] HospitalLaboratory - Chemistry and Chemistry - challengeOrdered By: Cherelle Heck on 06-88-9373Oaeyswh [Mass/Vol]3.5 g/dL3.4-5.0[facility] HospitalALP [Catalytic activity/Vol]115 U/O66-935KroegfucdGalion Community HospitalALT [Catalytic activity/Vol]24 U/W52-24SodvruyoxGalion Community HospitalAST [Catalytic activity/Vol]13 U/ZOlq80-14WkdlcryofGalion Community HospitalBilirubin [Mass/Vol]0.3 mg/dL0.2-1.0[facility] HospitalCalcium [Mass/Vol]8.6 mg/dL8.5-10.1FWVUMedicine [facility] Chloride [Moles/Vol]102 mmol/P60-825PiphtiuklGalion Community HospitalCO2 [Moles/Vol]24.4 mmol/L21.0-32.0[facility] HospitalCreatinine [Mass/Vol]0.86 mg/dL0.55-1.02[facility] HospitalGFR/1.73 sq M.predicted MDRD (S/P/Bld) [Vol rate/Area]mL/min/{1.73_m2}>=60 mL/min/1.73m 2 [facility] HospitalGlucose [Mass/Vol]110 mg/pAAmiz48-901WhrxadfbuGalion Community HospitalPotassium [Moles/Vol]4.3 mmol/L3.5-5.1FWVUMedicine Barnesville HospitalProtein [Mass/Vol]7.5 g/dL6.4-8.2FWV[facility] Sodium [Moles/Vol]137 mmol/Q759-037RouwpcrilGalion Community HospitalUrea nitrogen [Mass/Vol]12.0 mg/dL7.0-18.0[facility] HospitalUrea nitrogen/Creatinine [Mass ratio]14.0 mg/mgGalion [facility] Hospital Bilirubin Ql (U)LARGEAbnormalNEGATIVEGalion Community HospitalGlucose (U) [Mass/Vol]NegativeNEGATIVEGalion Community HospitalKetones Ql (U) NegativeNEGATIVEGalion Community HospitalpH (U)6.0 [pH]5.0-9.0[facility] Hospitalpecific gravity (U) [Rel density]1.0101.005-1.025 [facility] HospitalUrobilinogen Qn (U)0.2 {Fausto'U}/dL0.2-1.0 [facility] HospitalLaboratory - Hematology and Cell countsOrdered By: Cherelle Heck on 99-16-9013YEE (Bld) [Velocity]24 mm/h<=30[facility] HospitalImmature granulocytes/100 WBC (Bld)0.2 %0.0-0.5FWVUMedicine Barnesville HospitalLaboratory - Specimen informationOrdered By: Cherelle Heck on 43-59-2540Mirgakdtlt (U)CLEARCLEARFWVUMedicine Barnesville Hospital Color (U)LT. YELLOWYELLOWGalion Community HospitalLaboratory - UrinalysisOrdered By: Cherelle Heck on 89-98-0471Ruvqkbigf esterase Test strip Ql (U)MODERATEAbnormalNEGTogus VA Medical CenterMucus Ql (Urine sed)TRACEAbnormalNONE SEENGalion Community HospitalNitrite Ql (U) NegativeNEGATIVEGalion Community HospitalProtein Ql (U)NegativeNEG/TRACE [facility] HospitalLeukocytes [#/volume] corrected for nucleated erythrocytes in Blood by Automated counOrdered By: Cherelle Heck on 08-11-2025 WBC corrected for nucl RBC Auto (Bld) [#/Vol]4.8 10 3/uL4.0-11.0[facility] HospitalLymphocytes Auto (Bld) [#/Vol]Ordered By: Cherelle Heck on 02-63-2739Gjjwnandayy (Bld) [#/Vol]1.2 10 3/uL1.2-3.8[facility] HospitalLymphocytes/100 WBC Auto (Bld)Ordered By: Cherelle Heck on 01-62-0429Nduxwbtpzcm/100 WBC (Bld)26.1 %20.5-60.0[facility] Auto (RBC) [Entitic mass]Ordered By: Cherelle Heck on 56-41-8057FKV (RBC) [Entitic mass]27.5 pg26.7-34.0[facility] Auto (RBC) [Mass/Vol]Ordered By: Cherelle Heck on 73-93-9627NIKM (RBC) [Mass/Vol] 30.3 g/dL29.9-35.2FWVUMedicine Barnesville HospitalMCV Auto (RBC) [Entitic vol] Ordered By: Cherelle Heck on 19-53-2494CQY (RBC) [Entitic vol]90.7 fL81.0-99.0 [facility] HospitalMonocytes Auto (Bld) [#/Vol]Ordered By: Cherelle Heck on 08-31-8841Sduqlhncm (Bld) [#/Vol]0.6 10 3/uL0.3-0.8[facility] HospitalMonocytes/100 WBC Auto (Bld)Ordered By: Cherelle Heck on 39-68-3024Ukdzgyviz/100 WBC (Bld)12.0 %1.7-12.0[facility] Neutrophils Auto (Bld) [#/Vol]Ordered By: Cherelle Heck on 08-11-2025 Neutrophils (Bld) [#/Vol]2.8 10 3/uL1.4-6.5FW[facility]UM[facility] Neutrophils/100 WBC Auto (Bld)Ordered By: Cherelle Heck on 08-11-2025 Neutrophils/100 WBC (Bld)59.0 %43.0-75.0[facility] HospitalNo Panel InformationOrdered By: Cherelle Heck on 20-42-6649Urjwnyfplne # (Auto)0.1 10 3/uL0.0-0.7FWVUMedicine Barnesville HospitalImmature Granulocyte # (Auto) 0.01 10 3/uL0.00-0.03[facility] HospitalTotal Complement (CH50)>60 U/mL>41[facility] HospitalComment on above:Age Male Female 1 - 30 days Not Estab. Not Estab. 31 days - 6 months >32 >20 7 months - 17 years >39 >39 >17 years >41 >41 NOTE: The adult ( >17 years ) reference intervalrange is used to flag abnormals on this report. If the patient is 17 years old or younger, use the table above to determine out of range values.Performed at: [address], [place] [id number] Director: Miki Corley PhD, Phone: [phone] BacteriaTRACE #/HPFAbnormalNONE SEEN [facility] HospitalUrine Occult BloodNegativeNEGATIVEGalion Community HospitalUrine Other CastsNONE SEEN #/LPFNONE SEENGalion Community HospitalUrine Other CrystalsNone Seen #/HPFNone SeenGalion Community HospitalUrine RBC0-2 #/HPF0-2FWVUMedicine Barnesville [facility] Urine Squamous Epithelial CellsFEW #/LPFAbnormalNONE/RAREGalion Community HospitalUrine WBC5-10 #/HPFAbnormalNONE SEENGalion Community HospitalPlatelet mean volume Auto (Bld) [Entitic vol]Ordered By: Cherelle Heck on 23-37-4048Ikqchuat mean volume (Bld) [Entitic vol]8.4 fLLow9.5-13.5FWVUMedicine Barnesville HospitalPlatelets Auto (Bld) [#/Vol]Ordered By: Cherelle Heck on 19-81-9316Aiivymkty (Bld) [#/Vol]325 10 3/gP020-564CymfzidqnGalion Community HospitalRBC Auto (Bld) [#/Vol]Ordered By: Cherelle Heck on 04-52-0556QSP (Bld) [#/Vol]3.35 10 6/uLLow4.20-5.40[facility] Hospitalerum or plasma albumin/globulin mass ratioOrdered By: Cherelle Heck on 08-11-2025 Albumin/Globulin [Mass ratio]0.9 {ratio}[facility] Hospitalerum or plasma anion gap determinationOrdered By: Cherelle Heck on 53-30-9371Sciux gap [Moles/Vol]14.9 mmol/LFSheltering Arms Hospitalerum or plasma complement C3 measurement (mass/volume)Ordered By: Cherelle Heck on 08-11-2025 Complement C3 [Mass/Vol]146 mg/xS67-423XcwcqrwayAvita Health System Ontario Hospitalerum or plasma complement C4 measurement (mass/volume)Ordered By: Cherelle Heck on 71-67-9943Icehzlszem C4 [Mass/Vol]24 mg/fN45-10CyxonayieGalion Community Hospital Comment on above:Performed at: - [facility] [address] [place], [place] [id number] Director: Miki Corley PhD, Phone: [phone] special view RT w/CADon 21-68-2978BF special view RT w/CADMAD[facility] [address] [place] [address] Mammography Report Signed Patient: Nancy Billingsley V MR#: [id number] : 1955 Acct:[id number] Age/Sex: 69 / F Adm Date: 01/22/25 Loc: [place] Room: Type: [facility] Attending Dr: Yon Garrido DO Ordering Provider: Yon Garrido Date of Service: 01/22/25 Procedure(s): MM special view RT w/CAD Accession Number(s): ([id number]) MM/MM special view RT w/CAD: R92.8 Copies to: DO Yon Smith CLINICAL DATA: Callback focal asymmetry right [...] Langley Jr., D.OParisa01/22/2025 9:14 AM Dictation Location: [facility] Dictated By: Carlos Langley Jr, DO 01/22/25 0909 Signed By: 01/22/[address] [place] [address] Physician [facility] CenterMammography reportOrdered By: Carlos Langley on 55-34-3147Rpnlwtvnkn imaging [facility] [address] [place] [address] Mammography Report Signed Patient: Nancy Billingsley V MR# : [id number] : 1955 Acct:[id number] Age/Sex: 69 / F Adm Date: 5 Loc: [place] Room: Type: [facility] Attending Dr: Yon Garrido DO Ordering Provider: Yon Garrido Date of Service: 01/22/25 Procedure(s): MM special view RT w/CAD Accession Number(s): ([id number]) MM/MM special view RT w/CAD: R92.8 Copies to: DO Yon Smith~ CLINICAL DATA: Callback focal asymmetry right [...] grounds. Impression dictated by: Carlos Langley Jr., YeniOParisa01/22/2025 9:14 AM Dictation Location: [facility] Dictated By: Carlos Langley Jr, DO 01/22/25 0909 Signed By: 01/22/25 0914 Galion Community HospitalMM TOMOSYNTHESIS SCREENING BIon 73-52-7541[address] [address] Mammography Report Signed Patient: NANCY BILLINGSLEY V MR#: [id number] : 1955 Acct:[id number] Age/Sex: 69 / F ADM Date: 01/14/25 Loc: MAMMO Attending Dr: Yon Garrido D.O. Ordering Physician: Yon Garrido D.O. Results: Date of Service: 01/14/25 Follow Up: Procedure(s): MM tomosynthesis screening BI Accession Number(s): [id number] cc: Dong Bustos M.D.; Yon aGrrido D.O. Patient Name: NANCY BILLINGSLEY MR#: [id number] : 1955 Exam Date: 01/14/2025 Ordering Doctor: [...] bladder cancer at age 51. LOCATION: [facility] BREAST COMPOSITION: The breasts are heterogeneously dense,which [...] Signed By: 01/14/25 1155 DD/ 1154 TD/TT: Social Sciences Lecturer:TBHRadiology, RadiologistMD - 01/14/2025 [address] [place] [id number] Mammography Report Signed Patient: NANCY BILLINGSLEY V MR#: [id number] : 1955 Acct:[id number] Age/Sex: 69 / F ADM Date: 01/14/25 Loc: MAMMO Attending Dr: Yon Garrido D.O. Ordering Physician: Yon Garrido D.O. Results: Date of Service: 01/14/25 Follow Up: Procedure(s): MM tomosynthesis screening BI Accession Number(s): [id number] cc: Dong Bustos M.D.; Yon Garrido D.O. Patient Name: NANCY BILLINGSLEY MR#: [id number] : 1955 Exam Date: 01/14/2025 Ordering Doctor: [...] bladder cancer at age 51. LOCATION: [facility] BREAST COMPOSITION: The breasts are heterogeneously dense,which [...] Signed By: 01/14/25 1155 DD/ 1154 TD/TT: Social Sciences Lecturer: [facility] CenterRadiology Study observation (narrative)[facility] TOMOSYNTHESIS SCREENING BIOrdered By: Radiologist Radiology on 98-43-3025[facility] Work Phone: DAMIÁN,NED HPV,AGE GDLNon 17-78-1377BPE GDLN ACOG TESTINGNote.[facility] HealthcareComment on above:TESTS RESULT FLAG UNITS REF RANGE LAB Clinician Provided Cytology Information Source.............Vagina No. of containers..01 ThinPrep Vial Age Algo ACOG [place]... Note 01 <21 or >65 or no age provided FLAG LEGEND: L-Low Normal,H-High Normal,LL-Alert Low,HH-Alert High <-Panic Low,>-Panic High,A-Abnormal,AA-Critical Abnormal Performed at: 01 =G [facility] [place] [address] Fabiana Epstein MD, PAP IG (IMAGE GUIDED)Note.[facility] HealthcareComment on above:TESTS RESULT FLAG UNITS REF RANGE LAB DIAGNOSIS: 02 NEGATIVE FOR INTRAEPITHELIAL LESION OR MALIGNANCY. CELLULAR CHANGES ASSOCIATED WITH ATROPHY ARE PRESENT. Specimen adequacy: 02 Satisfactory for evaluation. Performed by: 02 Bri Melo, Associate Director Finance ([facility]) . 02 Note: Note 03 The Pap [...] <-Panic Low,>-Panic High,A-Abnormal,AA-Critical Abnormal Performed at: [address] [place] [address] Alexis Fuentes PhD, [address] [address] Fabiana Epstein MD, Performed at: =G - [facility] [address] [id number] Hospice Volunteer: Fabiana Epstein MD, Phone: [phone] Performed at: [facility] [address], [place] [id number] Hospice Volunteer: Alexis Fuentes PhD, Phone: [phone] [facility] for Release of Medical Records 47-39-3568Caxt for Release of Medical [id number]#1.00TIFF [facility] HospitalConsent for Procedure/Surgeryon 05-06-2024 Consent for Procedure/[id number]#1.00TIFF [facility] HospitalFormson 51-16-2591Ixlxa [id number]#1.00TIFBluffton HospitalPhysician Referralon 78-55-8664Wcphvmmzz Referral [id number]#1.00TIFBluffton HospitalAmbulatory Visit Summaryon 41-04-2907Kpmlgqjprg Visit Summary DIPTI BILLINGSLEYYCJuan Espinoza :1955 Visit Date:05/05/2024 Ambulatory Visit Instructions Your Diagnosis Overflow incontinence Incomplete bladder emptying Vaginal itching Dysuria Your Care Team Attending Physician - Wiliam WALLACE MD Primary Care Physician - CRISTOPHER RODRIGUEZ DO Referring Physician - RALPH AYERS PA-C [...] Schedule the Following Appointments Follow Up with MADISON LARA, Wiliam Gardner, URWilliam When: Where: [facility] [address] , [place] [address]- Medications What How Much When Instructions Unchanged aripiprazole 2 Milligram By Mouth Every day Contact prescribing physician if questions orconcerns Unchanged cyclobenzaprine 10 Milligram By Mouth Once a day (at bedtime) takes 3 tabs Contact prescribing physician if questions or concerns Unchanged duloxetine (Cymbalta 60 mg Cap-DR) By Mouth Contact prescribing physician if questions orconcerns Unchanged etodolac 500 Milligram By Mouth 2 [...] you for choosing us for your care. [facility] HospitalC3 and C4 COMPLEMENTon 18-50-7160Ndizpuguqd C3, Ozenr258 mg/mMLmqgfc69-006Fpt [facility] DaytonComment on above:Performed By: #### CSUITE #### [facility] [address] [place] [address] Dr. Will Vanegasplement C4, Serum31 mg/tYUxfzgl70-71Mtk [facility] Comment on above:Performed By: #### CSUITE #### [facility] [address] [address] [address] Will VanegasPLEMENT TOTAL (CH50)on 43-79-4619Yycvmhgvck, Total (CH50)>60 Normal>41The [facility] DaytonComment on above:Result Comment: Age Male Female 1 - 30 [...] table above to determine out of range values.Performed By: #### CH50T #### [facility] [address] [place] [address] Dr. Will Wick AUTO DIFFon 52-92-8608AWTJ #0.0 103/ulNormal0.0-0.1T[facility] City HospitalComment on above:Performed By: #### CBC #### [facility] [address] [place] [address] Dr. Yilan ChangBasophils/100 WBC (Bld)0.9 %Normal0.2-2.0The [facility] Comment on above:Performed By: #### CBC #### [facility] [address] [place] [address] Dr. Will Trent #0.1 103/ulNormal0.0-0.7The [facility] DaytonComment on above: Performed By: #### CBC #### [facility] [address] [place] [address] Dr. Will Pakosinophils/100 WBC (Bld)1.7 %Normal0.9-7.0The [facility] Comment on above:Performed By: #### CBC #### [facility] [address] [place] [address] Dr. Will Pakrythrocyte distribution width (RBC) [Ratio]12.4 %Cnrxqn58.0-15.0 The [facility] DaytonComment on above:Performed By: #### CBC #### [facility] [address] [place] [address] Dr. Will StroudHematocrit (Bld) [Volume fraction]41.3 %Nejccr79.0-48.0The [facility] DaytonComment on above:Performed By: #### CBC #### [facility] [address] [place] [address] Dr. Will StroudHemoglobin (Bld) [Mass/Vol]13.5 g/oGMrnjys04.0-16.0The [facility] DaytonComment on above:Performed By: #### CBC #### [facility] [address] [place] [address] Dr. Will Carbone #0.00 10e3/ulNormal0.00-0.03The [facility] DaytonComment on above:Performed By: #### CBC #### [facility] [address] [place] [address] Dr. Will Carbone %0.0 %Normal0.0-0.5The [facility] DaytonComment on above: Performed By: #### CBC #### [facility] [address] [address] [address] Will Mijares #1.3 103/ulNormal1.2-3.8The [facility] DaytonComment on above:Performed By: #### CBC #### [facility] [address] [place] [address] Dr. Will Lentzmphocytes/100 WBC (Bld)29.6 %Ngqtvn37.5-60.0The [facility] DaytonComment on above:Performed By: #### CBC #### [facility] [address] [place] [address] Dr. Will ArellanoUAL DIFF REQNONormalThe [facility] DaytonComment on above: Performed By: #### CBC #### [facility] [address] [place] [address] Dr. Will Ortega (RBC) [Entitic mass]31.1 ysLrgbbt64.7-34.0The [facility] DaytonComment on above:Performed By: #### CBC #### [facility] [address] [place] [address] Dr. Will Ortega (RBC) [Mass/Vol]32.7 g/zOSwspni36.9-35.2The [facility] DaytonComment on above:Performed By: #### CBC #### [facility] [address] [place] [address] Dr. Will Ortega (RBC) [Entitic vol]95.2 kDWoftwr88.0-99.0The [facility] DaytonComment on above:Performed By: #### CBC #### [facility] [address] [place] [address] Dr. Will Mazariegos #0.5 103/ulNormal0.3-0.8The [facility] DaytonComment on above:Performed By: #### CBC #### [facility] [address] [place] [address] Dr. Will Guillenocytes/100 WBC (Bld)11.4 %Normal1.7-12.0The [facility] Comment on above:Performed By: #### CBC #### [facility] [address] [place] [address] Dr. Will MccarthyUT #2.4 103/ulNormal1.4-6.5The [facility] DaytonComment on above:Performed By: #### CBC #### [facility] [address] [place] [address] Dr. Will Mccarthyutrophils/100 WBC (Bld)56.4 %Rbulqt30.0-75.0The [facility] DaytonComment on above:Performed By: #### CBC #### [facility] [address] [place] [address] Dr. Will StroudPlatelet mean volume (Bld) [Entitic vol]8.6 fLCritically low 9.5-13.5The [facility] DaytonComascension [facility]org[facility]gan [facility] on above:Performed By: #### CBC #### [facility] [address] [place] [address] Dr. Will StroudPLT237 103/fgLoilig313-078Bcw [facility] on above: Performed By: #### CBC #### [facility] [address] [place] [address] Dr. Will StroudRBC4.34 106/ulNormal4.20-5.40The [facility] on above:Performed By: #### CBC #### [facility] [address] [place] [address] Dr. Will StroudWBC4.2 103/ulNormal4.0-11.0The [facility] on above: Performed By: #### CBC #### [facility] [address] [place] [address] Dr. Will StroudPROF 14(COMP METB)on 97-41-9292Wjhwkap [Mass/Vol]3.8 g/dLNormal 3.4-5.0The [facility] on above:Performed By: #### CMP #### [facility] [address] [place] [address] Dr. Will StroudAlbumin/Globulin [Mass ratio]1.0 {ratio}NormalThe Toutle HospitalComment on above:Performed By: #### CMP #### [facility] [address] [address] [address] Will Bryant [Catalytic activity/Vol]110 U/MIuhawz59-612Uxz [facility] DaytonComment on above:Performed By: #### CMP #### [facility] [address] [address] [address] Will ParadaT [Catalytic activity/Vol]33 U/EDrdssg00-41Ftn [facility] DaytonComment on above:Performed By: #### CMP #### [facility] [address] [address] [address] Will Roseon gap [Moles/Vol]11.8 mmol/LNormalThe [facility] Comment on above:Performed By: #### CMP #### [facility] [address] [address] [address] Will StroudAST [Catalytic activity/Vol]21 U/QEefjzt87-77Dyn [facility] DaytonComment on above:Performed By: #### CMP #### [facility] [address] [place] [address] Dr. Will StroudBilirubin [Mass/Vol]0.4 mg/dLNormal0.2-1.0[facility] Comment on above:Performed By: #### CMP #### [facility] [address] [place] [address] Dr. Will StroudCalcium [Mass/Vol]9.0 mg/dLNormal8.5-10.1The [facility] Comment on above:Performed By: #### CMP #### [facility] [address] [address] [address] Will StroudChloride [Moles/Vol]102 mmol/WLhvlaz70-059Ogq [facility] Comment on above:Performed By: #### CMP #### [facility] [address] [address] [address] Will StroudCO2 [Moles/Vol]29.3 mmol/VJeydmk33.0-32.0The [facility] Comment on above:Performed By: #### CMP #### [facility] [address] [address] [address] Will StroudCreatinine [Mass/Vol]0.86 mg/dLNormal0.55-1.02The [facility] DaytonComment on above:Performed By: #### CMP #### [facility] [address] [address] [address] Will PakGFR-AF SCOTTISH>60Normal>=60The [facility] DaytonComment on above:Performed By: #### CMP #### [facility] [address] [address] [address] Will PakGFR-NON AF SCOTTISH>60Normal>=60The [facility] DaytonComment on above:Performed By: #### CMP #### [facility] [address] [place] [address] Dr. Will StroudGlobulin (S) [Mass/Vol]3.8 g/dLNormalThe [facility] DaytonComment on above:Performed By: #### CMP #### [facility] [address] [place] [address] Dr. Will StroudGlucose [Mass/Vol]106 mg/zPThvajy93-486NuhTwin City Hospital Comment on above:Performed By: #### CMP #### [facility] [address] [place] [address] Dr. Will StroudPotassium [Moles/Vol]4.1 mmol/LNormal3.5-5.1The [facility] Comment on above:Performed By: #### CMP #### [facility] [address] [place] [address] Dr. Will StroudProtein [Mass/Vol]7.6 g/dLNormal6.4-8.2The [facility] Comment on above:Performed By: #### CMP #### [facility] [address] [place] [address] Dr. Will StroudSodium [Moles/Vol]139 mmol/GIfqhez392-298Iro [facility] Comment on above:Performed By: #### CMP #### [facility] [address] [place] [address] Dr. Will Lowery nitrogen [Mass/Vol]15.0 mg/dLNormal7.0-18.0The [facility]cy Healthment on above:Performed By: #### CMP #### [facility] [address] [address] [address] Will Lowery nitrogen/Creatinine [Mass ratio]17.4 mg/mgNormalThe [facility] DaytonComment on above:Performed By: #### CMP #### [facility] [address] [address] [address] Will Hedrick RATE WESTERGRENon 05-67-7075EAZ RATE6 mm/hrNormal<=30The [facility] DaytonComascension [facility]org[facility] on above:Performed By: #### SEDR #### [facility] [address] [place] [address] Dr. Will Roman RANDOM W/MICROSCOPICon 90-62-5915BTDMFYWLNZLW SEENNormalNONE SEENTwin City HospitalComment on above:Performed By: #### UAMIC #### [facility] [address] [place] [address] Dr. Will Redd Ql (U)NegativeNormalNEGATIVETwin City Hospital Comment on above:Performed By: #### UAMIC #### [facility] [address] [place] [address] Dr. Will Lassiter SEENNormalNONE SEENTwin City HospitalComment on above:Performed By: #### UAMIC #### [facility] [address] [place] [address] Dr. Will Mtz (U)CLEARNormalCLEARTwin City HospitalComment on above: Performed By: #### UAMIC #### [facility] [address] [place] [address] Dr. Will Hernández (U)LT. YELLOWNormalYELLOWTwin City HospitalComment on above:Performed By: #### UAMIC #### [facility] [address] [place] [address] Dr. Will Allenystals LM Nom (Urine sed)NONE SEENNormalNONE SEENTwin City HospitalComment on above:Performed By: #### UAMIC #### [facility] [address] [address] [address] Will Pakpithelial cells LM Ql (Urine sed)RARENormalNONE SEEN /RAREThe [facility] DaytonComment on above:Performed By: #### UAMIC #### [facility] [address] [address] [address] Will StroudGlucose Ql (U)NegativeNormalNEGATIVETwin City HospitalComment on above:Performed By: #### UAMIC #### [facility] [address] [address] [address] Will StroudHemoglobin Ql (U)NegativeNormalNEGATIVEMercy Health Tiffin Hospital on above:Performed By: #### UAMIC #### [facility] [address] [place] [address] Dr. Will StroudKetones Ql (U)NegativeNormalNEGATIVETwin City HospitalComment on above:Performed By: #### UAMIC #### [facility] [address] [address] [address] Will StroudLEUKOCYTESSMALLAbnormalNEGATIVETwin City HospitalComment on above:Performed By: #### UAMIC #### [facility] [address] [place] [address] Dr. Will StroudMUCOUSNONE SEENNormalNONE SEENTwin City HospitalComment on above:Performed By: #### UAMIC #### [facility] [address] [address] [address] Will StroudNitrite Ql (U)NegativeNormalNEGATIVETwin City HospitalComment on above:Performed By: #### UAMIC #### [facility] [address] [address] [address] Will StroudpH (U)6.5 [pH]Normal5-9The [facility] DaytonComment on above: Performed By: #### UAMIC #### [facility] [address] [address] [address] Will Ray SEENAbnormal0-2The [facility] DaytonComment on above: Performed By: #### UAMIC #### [facility] [address] [place] [address] Dr. Will StroudSPEC GRAVITY<=1.899Aqvsmvyz7.005-<=1.025[facility] Comment on above:Performed By: #### UAMIC #### [facility] [address] [place] [address] Dr. Will StroudUA PROTEINNegativeNormalNEGATIVE/ TRACEThe [facility] Comment on above:Performed By: #### UAMIC #### [facility] [address] [place] [address] Dr. Will Yadavbilinogen Qn (U)0.2 {Fausto'U}/dLNormal0.2 - 1.0Twin City HospitalComment on above:Performed By: #### UAMIC #### [facility] [address] [place] [address] Dr. Will StroudWBC0-2AbnormalNONE SEENTwin City HospitalComment on above: Performed By: #### UAMIC #### [facility] [address] [place] [address] Dr. Will StroudXR ESOPHAGUSon 29-03-0514VU ESOPHAGUSEXAMINATION: XR ESOPHAGUS HISTORY: Chronic laryngitis COMPARISON: No relevant comparison [...] Electronically authenticated by: RAHUL DOVE Date: 2021-11-18 12:29[facility] CenterBN SPINE, LUMBOSACRAL; MIN 4 VIEWSon 81-29-5851IH SPINE, LUMBOSACRAL; MIN 4 VIEWSMRN: [id number] Patient Name: NANCY BILLINGSLEY STUDY: SPINE, LUMBOSACRAL MIN 4 VIEWS INDICATION: AP/LAT FLEX & EXT. COMPARISON: October 25, 2017 ACCESSION NUMBER(S): [id number] ORDERING CLINICIAN: IAN DIAZ FINDINGS: L4-5 laminectomy and posterior fusion with pedicle screws at L5-S1. Hardware satisfactory. Alignment unchanged with anterolisthesis L5 on S1. No pathologic motion seen. IMPRESSION: Status post lower lumbar laminectomy with L5-S1 posterior fusion, unchanged in appearance without evidence of complication. Electronically signed by: Radu GODFREYChildren's Hospital Colorado South CampusNo Panel Informationon 96-59-9084Sywafc click on the link to view the study wgecvlGpymzkIG-Yeodqlybodvs-Dtinrp 210 Work Phone: Office Visiton 19-04-3710Sdbqdk-up visit Diagnoses/Problems Lumbar radiculopathy (724.4) (M54.16) Orders Low back pain, Lumbar radiculopathy Start: Meloxicam 15 MG Oral Tablet; TAKE 1 TABLET DAILY NEEDED Low back pain, Lumbar radiculopathy, Neck pain Physical Therapy - General Referral Evaluation and Treatment Evaluate AND Treat Status: Hold For - Scheduling,Retrospective Authorization Requested for: [id number] Low back pain, Neck pain Start: methylPREDNISolone [...] MRI showed no significantnerve compression or stenosis. She states that she [...] walks with a bitof an antalgic gait. Shopping cart sign is [...] is getting better perhaps we can watch wmui-oub-gdc. If she is not getting better, I [...] MRI showed no significantnerve compression or stenosis. She states that she [...] walks with a bitof an antalgic gait. Shopping cart sign is [...] is getting better perhaps we can watch bnrc-ips-rjz. If she is not getting better, I [...] MRI showed no significantnerve compression or stenosis. She states that she [...] walks with a bitof an antalgic gait. Shopping cart sign is [...] not had physical therapy (more content not included)...NormalUH TouchworksSPINE, LUMBOSACRAL; MIN 4 VIEWSon 26-39-9609RGPLE, LUMBOSACRAL; MIN 4 VIEWSMRN: [id number] Name: NANCY BILLINGSLEY STUDY:Lumbar spine dated 10/25/2017. INDICATION:Pain. COMPARISON:Radiographs dated 12/30/2014. ORDERING CLINICIAN:IAN DIAZ TECHNIQUE:AP, lateral, lateral flexion, and lateral extension radiographs ofthe lumbar spine. FINDINGS:There are 5 lumbar type vertebral bodies. There is grade 1anterolisthesis of L5 on S1. It is similar between flexion,extension, and neutral. There is L4-5 pedicle screws with bridgingrods and laminectomy change. No distinct hardware complication isevident. Rprp-yd-vwnnxqoj multilevel degenerative changes seen of thevisualized spine. IMPRESSION:1. Grade 1 anterolisthesis of L 5 on S 1.2. Surgical and degenerative changes discussed above.Electronically signed by: ROSALBA JACOBO MDOur Lady of Lourdes Regional Medical Center Vital Signs Date TimeVital SignValuePerforming IqvwwtfkzMaxwtlst82-19-5108 12:35-0400Body .48 cmBenjamin Ball DO Work Phone: [phone] [place], [place] 17[address]210-23-2025 12:35-0400 Body mass index (BMI) [Ratio]29.5 kg/f6Fypoplby Ball DO Work Phone: [phone])[address] [place], [place] 1704210-23-2025 12:35-0400 Body ohejmmeqzpg27 [degF]Cristopher Ball DO Work Phone: [phone])[address] [place], [place] 1704210-23-2025 12:35-0400 Body alvwre48.08 kgBenjamin Ball DO Work Phone: 1(836)[address] [place], [place] 1704210-23-2025 12:35-0400 Diastolic blood hzpalxpr17 mm[Hg]Cristopher Ball DO Work Phone: [phone])[address] [place], [place] 1704210-23-2025 12:35-0400 Heart rate78 /minBenjamin Ball DO Work Phone: 1(001)[address] [place], [place] 1704210-23-2025 12:35-0400 Respiratory rate19 /minBenjamin Ball DO Work Phone: 1(088)[address] [place], [place] 1704210-23-2025 12:35-0400 SaO2% (BldA) [Mass fraction]98 %Cristopher Ball DO Work Phone: 1(349)[address] [place], [place] 1704210-23-2025 12:35-0400 Systolic blood vrqpdriy760 mm[Hg]Cristopher Ball DO Work Phone: 1(485)[address] [place], [place] 1704202-26-2025 14:13-0500 Body mass index (BMI) [Ratio]29.52 kg/y2Ulask Hema DO Work Phone: [facility]fm[facility]2493 14:13-0500Body zzuyja49.21 kgCorey Hema DO Work Phone: 1(419)483-[address] [place], [place] [address]Zvlvagzejx49-05-6234 14:13-0500Diastolic blood ovjonrtj71 mm[Hg]Yon Hema DO Work Phone: 1(593)[facility] [place], [place] [address]Vjubtecuxv17-80-4400 14:13-0500Systolic blood kxgqtfaj240 mm[Hg]Yno Hema DO Work Phone: 1(863)[facility] [place], [place] [address]Jaitizspkz31-09-9436 13:55-0500Body mass index (BMI) [Ratio]29.41 kg/y7Mtzxr Hema DO Work Phone: 1(818)[facility] [place], [place] [address]Dcfpxhwyxg23-60-1965 13:55-0500Body uijybn82.94 kgCorey Hema DO Work Phone: 1(905)[facility] [place], [place] [address]Zrakbsqwnx33-69-9111 13:55-0500Diastolic blood lljnvwfa01 mm[Hg]Yon Hema DO Work Phone: 1(247)330-[address] [place], [place] [address]Gudtlpadzs96-83-1671 13:55-0500Systolic blood jxxdiurg346 mm[Hg]Yon Hema DO Work Phone: 1(354)[address] [place], [place] 3788009-09-2024 13:46-0400Body mass index (BMI) [Ratio]29.47 kg/a2Htdfh Hema DO Work Phone: 1(286)[facility] [place], [place] [address]Gfaarrtsnp16-99-4220 13:46-0400Body toscgh38.08 kgCorey Hema DO Work Phone: 1(441)[facility] [place], [place] [address]Eyehikdomv57-92-9299 13:46-0400Diastolic blood ymjdvrte21 mm[Hg]Yon Hema DO Work Phone: 1(996)[facility] [place], [place] [address]Tfrnlavobu79-50-6163 13:46-0400Systolic blood chhyughv353 mm[Hg]Yon Hema DO Work Phone: 1(956)[address] [place], [place] 3788006-17-2024 10:14-0400Blood Pressure LocationPaschuyler WALLACE [facility]06-17-2024 10:14-0400Body mvasldqwepn84.6 [degF]Wiliam WALLACE [facility]06-17-2024 10:14-0400Diastolic blood emypvbqu72 mm[Hg]Wiliam [employer] [facility]06-17-2024 10:14-0400Heart rate87 /minPaRedFlag Software [facility]06-17-2024 10:14-0400Respiratory rate16 /minPatrick [employer]a [employer] [facility]06-17-2024 10:14-0400Systolic blood jlqkoaru643 mm[Hg]Wiliam WALLACE [facility]02-07-2023 12:30-0500Body ipvsfv860.94 cmDong Bustos Other [facility] Other 02-07-2023 12:30-0500Body mass index (BMI) [Ratio] 30.23 kg/m4PedfcwDong Bustos Other [facility] Other 02-07-2023 12:30-0500Body ydqxkv27.58 kgDong Bustos Other [facility] Other 02-07-2023 12:30-0500Diastolic blood vswklket426 mm[Hg]Dong Bustos Other [facility] Other 02-07-2023 12:30-9671YmI5% (BldA) [Mass fraction]97 % Dong Bustos Other [facility] Other 02-07-2023 12:30-0500Systolic blood ujbxlpyl859 mm[Hg] Dong Bustos Other [facility] Other 04-26-2022 13:01-0400Blood Pressure LocationBeth Rocio [phone]-HdebdWilson [facility] 04-26-2022 13:01-0400Body foeazglnhzx80.06 [degF]Deyanira Chan [phone]-RemxbWilson [facility] 04-26-2022 13:01-0400Diastolic blood mm[Hg] Deyanira Chan [phone]-IbcugWilson Health [facility]estive Health 04-26-2022 13:01-0400Heart rate87 /minDeyanira Chan [phone]-EmazzWilson Health [facility]est[facility] Health 04-26-2022 13:01-3568CfS4% (BldA) [Mass fraction]99 % Deyanira Chan [phone]-KkbduWilson Health Digestive Health 04-26-2022 13:01-0400Systolic blood smxxekqn113 mm[Hg] Deyanira Chan [phone]-PlnzqWilson Health [facility] Encounters Encounter DateEncounter TypeCare ProviderFacilityStart: 09-10-2025 End: 25-74-3118aiwlziydpoZjxhkluq Ball DO Work Phone: -[facility] ClydeStart: 09-10-2025 End: 79-38-0458Acpmtbu encounter procedureMarisol Fair 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-[facility] Work Phone: Start: 66-67-6478Iwi-patient / Non-visitMatttheron Heck MD-[facility] [employer] Work Phone: Start: 01-22-2025 End: 28-27-8255Anjyjrs encounter procedureBenjamin Ball DO Work Phone: [facility] Work Phone: Start: 01-22-2025 End: 77-57-9001uyjuoxdetnUmbrfwez Ball DO Work Phone: [facility] Work Phone: Start: 01-14-2025 End: 40-46-0762Udlflv outpatient visit 15 minutesCorey Hema DO Work Phone: [facility] OBComment on above:Follow-up encounter involving medication; Vaginal itching; Vaginal burningStart: 01-14-2025 End: 65-70-3071wpsppljsgxOCMSC FAZIONot AvailableStart: 01-14-2025 End: 87-81-9578Hyyvifxif Result EncounterCorey Hema DO Work Phone: noMS External Department UnsolicitedStart: 01-14-2025 End: 73-44-3751Xaboufgno Result EncounterCorey Hema DO Work Phone: n[facility] External Department UnsolicitedStart: 10-14-2024 End: 74-68-6881Cokojx flowsheetCorey Hema DO Work Phone: [facility] OBStart: 10-14-2024 End: 19-44-2920Rhswyc flowsheetCorey Hema DO Work Phone: noMS BCP OBStart: 10-14-2024 End: 59-45-2936Pcskxrzfc Result EncounterCorey Hema DO Work Phone: n[facility] External Department UnsolicitedStart: 10-14-2024 End: 02-59-2827Xhjkuws encounter procedureCorey Hema DO Work Phone: [facility] Work Phone: Start: 10-14-2024 End: 13-10-3493Zdrkxvly preventive med est patient 65yrs& olderCorey Hema DO Work Phone: [facility] OBComment on above:Well woman exam with routine gynecological exam; Breast cancer screening by mammogram; Postoperative examination; Dyspareunia in femaleStart: 10-14-2024 End: 68-57-6566fcblmqsiduDVVVY FAZIONot AvailableStart: 07-28-2024 End: 45-95-0930Siqgis flowsheetCorey Hema DO Work Phone: [facility] OBStart: 07-28-2024 End: 28-56-8827Badbch flowsheetCorey Hema DO Work Phone: [facility] OBStart: 07-28-2024 End: 83-61-7595Ufbjyo outpatient visit 15 minutesCorey Hema DO Work Phone: [facility] OBComment on above:Encounter to discuss test results; Vaginal itching; Vaginal lesionStart: 07-28-2024 End: 72-96-0097fbqlloxpvwWTMYE FAZIONot AvailableStart: 07-01-2024 End: 81-04-8993bwxjspwmxgVU Yon Hema Work Phone: [facility] Work Phone: Start: 07-01-2024 End: 33-83-3705Ktwpnljj ReferredDO Yon Hema Work Phone: [facility]-LAB Path Spec Igor HospStart: 07-01-2024 End: 02-94-6901czrlvdmhwaTQGYH FAZIONot AvailableStart: 06-18-2024 End: 78-00-8497bmmmufshvkIVE RAMEYNot AvailableStart: 06-10-2024 End: 68-76-2563xhhndhuwcyCXP RAMEYNot AvailableStart: 05-19-2024 End: 64-01-4850dkioknbpkvPdywvvj R WATERSFacility:CD:[id number]: 05-05-2024 End: 15-81-1937vvjzytivhtMqncgey R WATERSFacility:EU BellevueStart: 05-05-2024 End: 16-51-6024Endlwmc encounter procedurePawmyu WALLACE [facility] start: 04-07-2024 End: 55-44-4757yjrmgrwhghUNC DIANAEYNot AvailableStart: 76-26-2830pskckmobiw Wiliam WALLACEFacility:ANA NationueStart: 03-18-2024 End: 24-34-4072mgkxrfapblDCO RAMEYNot AvailableStart: 12-26-2022 End: 49-18-6050ezdhexjnulLowcul Bustos Other [employer] Other Start: 09-82-4175Sbodpi outpatient visit 15 minutes Dong [facility] ClinicStart: 08-17-2022 End: 57-51-2197Wmnkbxq encounter procedureTrudi MCCANN [phone]-LkmedWilson Health Digestive Health Start: 48-42-9489Oekpl UpdateBenjamin E Ball Work Phone: [phone]-FtjjdymjkpdmWindyMountain View CampusSabianism Work Phone: start: 04-11-2022 End: 53-79-1908kutofuybhnSI CHERELLE DELLAFacility:V5Kizkt: 03-14-2022 End: 60-81-1267Vxvxepj encounter procedureDeyanira Chan [phone]-IvujyWilson Health Digestive Health Start: 11-18-2021 End: 06-74-0988wtupkxfzveQT HEATHER SCHROEDERFacility:E7Gfkhp: 18-07-6537Mjfyik outpatient visit 15 minutesBenjamin E Ball Work Phone: [phone]-Wflolhqjkoad-[facility] Work Phone: Start: 51-12-8052PqqvhqdupjDokuootwKathy Diaz Facility:[facility] Procedures DateProcedureProcedure DetailPerforming ClinicianStart: 72-25-4556Ufgbk chest X-rayBenjamin [employer] DO Work Phone: Start: 87-62-0123Oiuhpclmjcp of right breastBenjamin Ball DO Work Phone: Start: 78-01-9843FN TOMOSYNTHESIS SCREENING BICorey Hema [employer] Work Phone: Start: 36-65-4357OslpcsvzmtnLgbdf Hema [employer] Work Phone: Start: 31-95-4574RGG,APTIMA HPV,AGE GDLNCorey HemaTetraphase Pharmaceuticals Work Phone: Start: 77-24-5442BosidrpckvkAcge [employer] Comment on above:rectal polyp x1, small IhStart: 26-00-3737MopaulexmjyvebuenkqsjhltmpLtee Rocio Comment on above:esophageal dilation, schatki's ring Bladder SurgeryBenjamin E Ball Work Phone: Bunion Correct Resect Joint Acumed First Toe Implant Cristopher E [employer] Work Phone: Excision of bunionPatrick Caldera Pharmaceuticals HysterectomyBenjamin E Ball Work Phone: HysterectomyPatrick WALLACE Knee SurgeryBenjamin E [employer] Work Phone: Repair of stress incontinence by suprapubic sling Wiliam WALLACE Spinal arthrodesisPatrick WALLACE Viral screeningMarcia Akash Other Plan of Treatment DateCare ActivityDetailAuthorStart: 41-55-8431Rhfpkfrlj for malignant neoplasm of breastMammogramNOMS HealthcareStart: 10-27-2025 End: 63-73-1939Txdfplw encounter hsbkgwyfv81/09/2025 2:00 PM EST Office Visit [facility] [address] [phone] Yno Garrido, DO [address] [place], [place] [id number] [facility] OBStart: 01-14-2025 End: 91-27-7645Lqofewf encounter enkxzxxam40/26/2025 2:10 PM EST Office Visit [facility] [address] [phone] Yon Garrido, DO [address] [place], [place] [address] [facility] OBStart: 11-04-2024 End: 33-07-2252Fuiplgd encounter qfieykimv61/17/2024 1:20 PM EST Office Visit [facility] [address] [phone] Yon Garrido, DO [address] [place] [address] [place] [address] [facility] OBStart: 10-14-2024 End: 69-35-9577ZJO Skeletal system Views for bone densityDEXA bone density Imaging Routine Postoperative examination Expected: 10/14/2024 (Approximate), Expires: 10/14/2025[facility] HealthcareComment on above:Expected: 10/14/2024 (Approximate), Expires: 10/14/2025Start: 10-14-2024 End: 03-29-3372FL Breast - bilateral ScreeningBilateral screening mammogram Imaging Routine Breast cancer screening by mammogram Expected: 10/14/2024, Expires: 12/14/2025[facility] Work Phone: comment on above:Expected: 10/14/2024, Expires: 12/14/2025Start: 09-02-2024 End: 11-87-3730Vvyqycp encounter oaunxkgpb22/15/2024 10:10 AM EDT Office Visit [facility] [address] [facility] [place] [place] [phone] Yon Garrido, DO [address] [place] [address] [facility] OBStart: 07-28-2024 End: 70-92-4438Akbfuhz encounter hzirmxczs95/09/2024 1:30 PM EDT Office Visit [facility] [address] [place] [address] Yon Garrido, DO [address] [place] [address] ArrivedOJAI VALLEY COMMUNITY [facility]OSP[facility] OBComment on above:ArrivedStart: 84-94-0149Lclulmwie vaccinationInfluenza Vaccine (#1)[facility] HealthcareStart: 28-49-0756BfpzhdmkcAvita Health System Ontario Hospitaltart: 58-89-4508Wejwfvjjlhoo Vaccine: 65+ Years (1 of 1 - PCV)Pneumococcal Vaccine: 65+ Years (1 of 1 - PCV) [facility] HealthcareStart: 87-75-9439Qbxeyzmty for malignant neoplasm of breast MammogramNOMS HealthcareStart: 55-51-3887Pdaozybrr for malignant neoplasm of colonNOMS HealthcareTHIN PREP TIS PAP AND HR HPV DNATHIN PREP TIS PAP AND HR HPV DNA Pathology and Cytology Routine Well woman exam with routine gynecological exam Ordered: 10/14/2024[facility] HealthcareComment on above:Ordered: 10/14/2024XR Chest [facility] Immunizations Immunization DateImmunizationNotesCare ZtzdivvdRswtxqey13-78-4779UCPI-DhD-4 (COVID-19) mRNA BNT-162b2 vaxMaher SALAM [phone]-DywqiWilson Health [facility]estive Jablyp92-23-6578 SARS-CoV-2 (COVID-19) Ad26 vaccine, recombinantMaher SALAM [phone]-NgdvoWilson Health Digestive HealthNEGATED: Highlighted row has not occurred!17-81-4953hixggvtqe virus vaccine, unspecified formulationDeyanira Chan [phone]-FbyobWilson Health [facility]est[facility] Health Payers DatePayer CategoryPayerPolicy [id number]-[id number] Insurance [id number]aegy08-06-2418 [id number] 2.840.1.162566.3.579.[id number] 2.840.1.972571.3.579.2.[id number] 2.0.1.319559.3.57[id number] 2.840.1.595026.3.579.2.90075-75-0743Kdnjbor1436211 2.0.1.487265.3.579.2.931224-90-7411Lsgkxss8021386 2.16840.1.371460.3.579.2.070204-03-0494Xinxxva9013600 2.16840.1.186105.3.579.2.718245-89-2123Ljjrsjv4730954 2.16840.1.438966.3.579.2.460688-04-4747Sxbjble0216051 2.16840.1.564037.3.579.2.614377-92-3313Aikhaxw8147077 2..840.1.065150.3.579.2.24[id number] 2.16.840.1.965602.3.579.2.946978-39-5200Sbljbvi3519596 2.16.840.1.133418.3.579.2.6773WicoqgkRUN499T48343 6s6l585b-5207-3k46-c[id number] 2.16.840.1.067419.3.579.2.170Ssxoqen39646150 2..840.1.629401.3.579.2.531 Social History DateTypeDetailFacilityTobacco smoking status NHISUnknown if ever smokedAdena [facility] Center CtrStart: 38-03-9827Iys Assigned At [facility] CenterNever a smokerNever a xscdgeJZ-Xlbmmoiskjjc-Bgqbqv 210 Work Phone: Start: 08-03-2017 End: 79-60-5583Lwhvikn smoking statusNever smoked tobacco (finding)[facility] Tobacco smoking statusNeverWilson Health [facility] Sex Assigned At [facility] Tobacco smoking status NHISTobacco smoking consumption unknownNOMA HealthcareStart: 92-08-3031Asc assigned at birthNot on fileSANPETE [facility]LEY [facility]OSP[facility] HealthcareStart: 63-51-6435IjeMlylwu (finding)[facility] Goals DatePatient GoalDesired Activity/State Functional Status FjccYuuyfkkmlqAqurlnNqqpdfej10-32-5764Vpxhvrchak StatusN/AExec[facility] Clinical Notes 03-14-2022 to 09-10-2025 Note Date & TjcnPjvsJaluxyig45-49-0813 Evaluation note* Diagnosis Onset Date Resolution Status Admit Date Bronchitis acuteOctober 2024 12:25pm [facility] Work Phone: 1(634) 240-558302-26-2025 History of Present illness Narrative* Leticia Courtney, VP CLINICAL - 01/14/2025 2:10 PM EST Reason for Appointment: Patient ID: Nancy Billingsley [...] Past Medical History: Diagnosis Date Autoimmune disease ([facility]) HISTORY PAST MEDICAL HISTORY SOCIAL HISTORY Past Medical History: Diagnosis Date Autoimmune disease ([facility]) Social History Tobacco Use Smoking status: Not [...] nursing note reviewed. Exam conducted with a health administration teacher present. Vitals: Estimated body mass index is [...] hasn't changed symptoms. Pt states clobetasol cream ishelping with vaginal irritation. Pt still having incontinence issues. Pt to be referred to Dr Paulfor evaluation. Documented by Leticia Courtney LPN on behalf of: Yon Garrido DO Answers submitted by the patient [...] nothing Menstrual history: postmenopausal documented in this encounterOzarks Medical CenterQyxpkvcirt81-53-1039 History of Present illness Narrative* Leticia Courtney, VP CLINICAL - 10/14/2024 1:20 PM EST Reason for Appointment: Patient ID: Nancy Billingsley [...] nursing note reviewed. Exam conducted with a health administration teacher present. Vitals: Estimated body mass index is [...] by Leticia Courtney LPN on behalf of: Yon Garrido DO documented in this encounterOzarks Medical CenterKfjluopqvn26-88-5154 History of Present illness Narrative* Esperanza Carson LPN - 07/28/2024 1:30 PM EDT Reason for Appointment: Patient ID: Nancy Billingsley [...] nursing note reviewed. Exam conducted with a health administration teacher present. Vitals: Estimated body mass index is [...] by Esperanza Carson LPN on behalf of: Yon Garrido DO documented in this encounterOzarks Medical CenterBefbazrqad55-21-7842 Hospital Discharge instructions Patient Education 05/05/2024 10:51:46 [...] including vitamins, herbs, eye drops, creams, and kaxo-zdz-xwliidu medicines. Any problems you or family members [...] provider tells you to take them. Taking uzho-crs-fajklqw medicines, vitamins, herbs, and supplements. Tests You [...] Follow these instructions at home: Medicines Take eycj-cyf-yexzgni and prescription medicines only as told by [...] blood in your urine increases, call your healthcare provider. Follow instructions from your health care provider about eating or drinking restrictions. If a tissue sample was removed for testing (biopsy) during your procedure, it is up to you to get your test results. Ask your health care provider, or the department that is doing the test, when yourresults will be ready. Drink enough fluid to [...] blood in your urine increases, call your healthcare provider. If you were prescribed an antibiotic [...] provider. Document Revised: 07/19/2022 Document Reviewed: 06/17/2021 [employer] Patient Education 2022 [employer] Follow Up Care 03/24/2024 15:37:07 With:MADISON LARA, Wiliam Gardner, URL Address: [facility] [address] [place] [address]- When: Unknown [facility] 06-17-2024 NoteChief Complaint referral for incontinence HPI Staff Referral for incontinence by Dr. Garrido. Pt states that she had a bladder sling procedure done about15 years at the [facility]. She states that the incontinence is causing a rash with itching and pain and burning on the skin ofher vaginal area. This has been ongoing for [...] s/p bladder sling 15 yrs ago at [facility]. S/p hysterectomy. 1. Overflow incontinence (N39.490: Overflow incontinence) S/p bladder sling and prolapse repair 15 yrs ago at [facility] by Dr. Jimenez due to bladder prolapse. Likely had large piece of mesh placed. Pt was dry after sling. Leaking starting 5 yr ago. Leaking worsens with increased fluid intake and coffee. Tried cream through Dr. Bustos, does not recall cream. [place] it was washed away each time she [...] cream for #3. -Retrieve op note from [facility]. -Will schedule cysto with pelvic exam. The risks and benefits for cystoscopy have been discussed. The risks include bleeding, infection, and irritation of the bladder and urinary channel, among others. The patient, after being informed of procedural details and after questions have been answered, wishes to proceed. Full informed consent has been obtained. Will order Local anesthesia. Prophylacticabx sent to [facility]. 2. Incomplete bladder emptying (R33.9: Retention of urine, unspecified) PVR 216 cc. Feels she empties completely then leaks shortly after going to the bathroom. Voids wo difficulty. 3. Vaginal itching (N89.8: Other specified noninflammatory disorders of vagina) UA shows small leuks. Leaking has caused vaginal and labial itching. No irritation on inner thighs.Does not wear pads, worsened the irritation when she tried in the past. -Start Clobetasol bid. Rx sent to [facility] [place]. 4. Dysuria (R30.0: Dysuria) Also has burning with urination which would not be caused by external irritation. Follow-up With When Contact Information Wiliam WALLACE MD, URL [facility] [address] [place] [address]- Additional Instructions: schedule cysto with pelvic exam Patient Education Cystoscopy I, Nasra Tiwari, personally scribed for Dr. Madison og (more content not included)...[facility] ClinicComment on above:Result Comment: Electronically Signed By: Wiliam WALLACE MD\.br\Date and Time Signed: 05/05/24 10:55 EDT\.br\Electronically Co-Signed By: Nasra Tiwari\.br\Date and Time Co-Signed: 05/05/24 10:52 YIO68-04-0022 NoteUrology Cystoscopy Cystoscopy is a procedure that is [...] including vitamins, herbs, eye drops, creams, and euin-pim-bealecw medicines. ? Any problems you or family [...] tells you to take them. ? Taking oszx-kfh-tqzyfuy medicines, vitamins, herbs, and supplements. Tests You [...] taken to help prevent infection. These steps mayinclude: ? Washing skin with a germ-killing soap. [...] these instructions at home: Medicines ? Take ejpb-krk-uqaquju and prescription medicines only as told by [...] procedure, it is up to you to getyour test results. Ask your health care provider, or the department th (more content not included)...[facility] 12-26-2022 Evaluation note* Encounter Date Diagnosis Assessment Notes Treatment Notes Treatment Clinical Notes Dec, Vulvovaginitis (ICD-10 - N76.0) Explained prescription cream should help with irritation and itching. Discussed various brands of incontinence pads. Offered medication to help with urinary incontinence which she did not declines atthis time. 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 [facility] Other 04-26-2022 Hospital Discharge instructions Patient Education [...] Follow these instructions at home: Medicines Take sgna-new-zybrpkz and prescription medicines only as told by your health care provider. If you were prescribed an antibiotic medicine, take it as told by your health care provider. Do notstop taking the antibiotic even if you start to feel better. Eating and drinking Follow any diet changes as told by your health care provider. Work with a diet and human resources specialist (dietitian) to create an eating plan [...] 11/02/2001 Document Revised: 03/31/2020 Document Reviewed: 03/31/2020 [employer] Patient Education 2020 [employer] Follow Up Care 02/23/2022 16:00:41 With:Deyanira Chan CNP Address: When:3 months [facility] Evaluation + Plan note Future Appointments Appointment Date:06/13/2022 10:00:00 AM Scheduled Provider:Deyanira Chan CNP Location:[facility]ment Type:[facility] Follow Up Future Scheduled Tests Radiology* XR Esophagus 03/14/22 [facility] Evaluation noteNo assessment information available [facility] Work Phone: Evaluation note* Diagnosis Well woman [...] disorder of vagina documented in this encounter [facility] HealthcareEvaluation note* Diagnosis Follow-up encounter involving medication Vaginal itching Pruritus of genital organs Vaginal burning Other specified symptom associated with female genital organs documented in this encounter [facility] HealthcareHistory general Narrative - Reported* Type Description Date Medical History Connective tissue autoimmune dis ease Medical HistoryArthritisMedical HistorySpinal StenosisMedical HistoryLumbar FusionMedical HistoryanxietyMedical HistoryGastroesophageal reflux disease with esophagitis without hemorrhageMedical HistoryChronic vasomotor rhinitisMedical HistoryPalpitationMedical HistoryScreening for viral diseaseMedical HistoryChest pain at restSurgical HistoryLumbar [id number]/2014Surgical Historyright hand [id number]/2017Hospitalization HistorySEE SURGICAL HX NeuroDerm Other Hospital course Narrative No data available for this section [facility] Discharge instructions No data available for this section [facility] Progress note No data available for this section [facility] Reason for referral (narrative)No reason for referral information availableParkview [facility] Work Phone: Summary Purpose Family History No Family History Records Found Relationship Condition Age at Onset Recorded Date/T breonna father Unknown motherDeceasedUnknownMalignant neoplasmUnknownsisterMalignant neoplasmUnknown Advance Directives No Advanced Directives Records Found [...] is getting better perhaps we can watch [id number]. If she is not getting better, I will likely need to get an MRI so that we can evaluate further. Chief Complaint and Reason for Visit Chief Complaint Admit Date Cough, shortness of breath September 10, 2025 12:25pm Reason for Visit Admit Date Bronchitis September 10, 2025 1 2:25pm Chief Complaint Admit Date Cough, shortness of breath September 10, 2025 12:25pm Chief Complaint Admit Date R95.8 January 22, 2025 8:15 am Additional Source Comments INFORMATION SOURCE (unrecogn ized section and content) DATE CREATED AUTHOR 05/14/2018 [facility] DATE CREATED AUTHOR AUTHOR'S ORGANIZ ATION 05/06/2021 [employer] DATE CREATED AUTHOR AUTHOR'S ORGANIZ ATION 05/10/2021 [facility] DATE CREATED AUTHOR AUTHOR'S ORGANIZ ATION 04/13/2022 [facility] DATE CREATED AUTHOR AUTHOR'S ORGANIZ ATION 08/30/2024 [facility] DATE CREATED AUTHOR AUTHOR'S ORGANIZ ATION 01/16/2025 [facility] DATE CREATED AUTHOR AUTHOR'S ORGANIZ ATION 09/17/2025 [facility] Care Team (unrecognized sect ion and content) Team Status: Inactive Member Role Status Dates Yon Garrido DO Attending Provider Active Start : July 01, 2024 End: July 01, 2024 Team Status: Active Member Role Status Dates Cristopher Rodriguez DO Primary Care Provider Active Team Status: Inactive Member Role Status Dates Yon Garrido DO Attending Provider Active Start : January 22, 2025 End: January 22enCyndy Leonardo [facility] [place] ProviderActiveStart: January 22, 2025 End: January 22, 2025 Team Status: Active Member Role/Relationship Status Dates Cristopher Rodriguez DO Primary Care Provider Active Team Status: Active Member Role/Relationship Status Dates Cristopher Rodriguez DO Primary Care Provider Active Start: August 11, 2025 Faisal Romo ProviderActiveStart: August 11, 2025 Team Status: Inactive Member Role/Relationship Status Dates Cristopher Rodriguez DO Primary Care Provider Active Start: September 10, 2025 End: September 10, 2025Jose Suarez ProviderActiveStart: September 10, 2025 End: September 10, 2025 Team Status: Active Member Role/Relationship Status Dates Cristopher Rodriguez DO Primary Care Provider Active Start: September 10, 2025 Jose Suarez ProviderActiveStart: September 10, 2025 Team Status: Inactive Member Role/Relationship Status Dates Cristopher Rodriguez DO Primary Care Provider Active Start: September 10, 2025 End: September 10, 2025Jose Suarez ProviderActiveStart: September 10, 2025 End: September 10, 2025 REASON FOR VISIT (unrecogniz ed section and content) ReasonCommentsWell Women VisitReasonCommentsBiospy follow upReasonComments Medication follow pu Goals (unrecognized section and [...] BE BASED ON THE PRIMARY CLINICAL RECORDS. [facility]. provides no warranty or guarantee of the accuracy or completeness of information in this document.
[2025-10-30 13:09] LABS: Age Gdln ACOG Testing Note (.); Pap IG (Image Guided) Note (.)
== END 2025-10-27 19:13 | disposition home or self-care (01) ==
LOC: LAB 19:12
PROVIDERS: PCP Family Medicine; Visit Provider Nurse Practitioner Family
DX: Z01.419 Encounter for gynecological examination (general) (routine) without abnormal findings (principal)
CPT/HCPCS: 88175